=== PATIENT | male | born 1945 | race Caucasian/White ===

== ENCOUNTER 2024-10-03 09:42 | Inpatient (IN) ==
[2024-10-03 10:42] LABS: Hematocrit (blood only) 50.9 % (42.0-52.0); Hemoglobin 17.7 g/dl (14.0-18.0); Immature Granulocytes # (auto) 0.03 K/uL (0.01-0.20); Immature Granulocytes % (auto) 0.4 %; Mean Corpuscular Hemoglobin 31.1 pg (25.0-34.0); Mean Corpuscular Volume 89.3 fL (80.0-100.0); Platelet Count 289 K/uL (130-400); RDW Standard Deviation 42.6 fL (36.4-46.3); Red Blood Count 5.70 M/uL (4.70-6.10); White Blood Count 8.30 K/ul (4.8-10.8)
--- NOTE | 2024-10-03 10:53 | Emergency Department Note ---
Impression & Plan Acute right-sided back pain with sciatica, Fall, Right leg weakness ED Provider Note NAME: KAMRYN SWEET AGE: 78 SEX: Male INFORMANT: Patient ED PROVIDER(S): Marcel Monae MD CHIEF COMPLAINT: Back pain PLAN: Disposition: Admitted Outpatient prescription management: none Referral: None MEDICAL DECISION MAKING: Patient presented because of back pain. He had a minor fall twice this week and thankfully suffered no significant injury with his. He had no saddle anesthesia. Given his prior back surgery history he had blood work obtained and was sent for CT imaging. Patient was found to have disc herniation on CT imaging. This would fit with his right leg weakness and discomfort. He was treated with IV Tylenol. He felt better with this but then had returned recurrence of pain. He was treated with oral tramadol. Discussed the case with on-call spine, Dr. Walton and he felt admission for MRI, consultation and management was appropriate given the patient's age and multiple falls. Discussed this with the patient and he was in agreement. Consultation was made with the hospitalist service. Patient was evaluated in the ER and admitted for further management. Care/management discussed with: specification manager, orthospine, hospitalist Level of care consideration(s): After review of the information above and other included data, I feel the patient requires escalation of care to admission Triage Nursing notes: reviewed and agree them. Vital Signs: reviewed and remarkable for hypertension Additional History obtained from: none Chronic Medical/Social Conditions affecting care: Lives alone Prior/ Outside/ External records reviewed: none Differential Diagnosis: Musculoskeletal, disc herniation, fracture, metastatic disease, cord compression, discitis, sciatica, cauda equina, infection, aortic disease, renal colic, gastrointestinal, as well as other pathologies. Diagnostics, independently interpreted by me: ECG: none Cardiac Monitoring: Cardiac monitoring ordered by me: The patient was placed on continuous cardiac monitoring and observed. It revealed a normal sinus rhythm at 87 beats per minute without ectopy or evidence of dysrhythmia. Medical decision rules: none Imaging studies: CT scan as above. HPI: 78 year old Male arrives for evaluation of a back pain and a fall. This started a few days ago and is worsening. Right leg gave out and he fell. No injury. The patient also notes the following associated symptoms, none. The patient has taken tylenol for relieving factors. Current pain is rated as 8/10. Pt denies LOC, headache, fevers, chills, diaphoresis, visual changes, neck pain, chest pain, breathing difficulties, nausea, vomiting, abdominal pain, melena, hematochezia, urinary symptoms, numbness, lymphadenopathy, rash, or other complaints. PAST MEDICAL HISTORY: See Below, kidney stone PAST SURGICAL HISTORY: See Below, SOCIAL HISTORY: See Below, retired HOME MEDICATIONS: See Below ALLERGIES: See Below VITALS: See Below PHYSICAL EXAMINATION: GENERAL: Awake, alert, uncomfortable-appearing, in no distress HENT: Normocephalic, atraumatic. Oropharynx unremarkable. EYES: Normal conjunctiva. Sclera non-icteric. NECK: Inspection normal. Non-tender. Supple. No nuchal rigidity. FROM. No masses. RESPIRATORY: Clear to auscultation. No wheezes. No rales. Normal respiratory effort. CARDIAC: Normal rate. Normal rhythm. No murmurs. No rubs. Extremities warm and well perfused. Pulses equal. No JVD. GI: Soft, non-distended. No tenderness to palpation. No rebound or guarding. No masses. RECTAL: Deferred. MUSCULOSKELETAL: Atraumatic. Chest examination reveals no tenderness. The back is symmetrical on inspection without obvious abnormality. There is no CVA tenderness to palpation. No joint edema. LOWER EXTREMITIES: Calves are equal size bilaterally and non-tender. No edema. No discoloration. NEURO: Normal sensorium. No sensory or motor deficits noted. No saddle anesthesia. Positive right SLR SKIN: No rash or jaundice noted. PROCEDURES: none CRITICAL CARE: none OBSERVATION NOTE: none Past Med/Surg History Problem List (Updated 10/03/24 @ 10:53 by Marcel Monae MD) Right leg weakness (Acute) Fall (Acute) Acute right-sided back pain with sciatica (Acute) Urethral stricture Hydronephrosis, left Left ureteral calculus Medical History (Updated 10/03/24 @ 10:53 by Marcel Monae MD) Nausea and vomiting after administration of anesthetic agent Macular degeneration gets injections Fusion of spine lumbar Hiatal hernia GERD (gastroesophageal reflux disease) Surgical History History of surgery on arm left Hx of foot surgery left History of tooth extraction History of cataract surgery right History of tonsillectomy Social History Smoking Status: Former smoker Second Hand Exposure: No; Do You Dip or Chew Tobacco: No; Hx Alcohol Use: No Hx Substance Use: No Preferred Language: Turkish Communication Ability: Effective 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 Beliefs That Will Affect Care: None Current Living Situation: Spouse Feels Safe at Home: Yes Assistive Devices: Denture - Upper, Denture - Lower and Glasses Allergies Allergies Allergy/AdvReac Type Severity Reaction Status Date / Time meperidine [From Demerol] Allergy Severe Hallucinati Verified 10/03/24 14:10 ng Home Meds Home Medications Medication Instructions Recorded Confirmed multivitamin 1 tab PO QAM 05/20/23 10/03/24 pantoprazole 40 mg tablet,delayed 40 mg PO QAM 05/20/23 10/03/24 release vit C 250 mg-vit E 90 mg-zinc 40 1 tab PO BID 05/20/23 10/03/24 mg-copper 1 [id number] capsule (PreserVision AREDS-2) Results & Data (ED) Vital Signs Vital Signs - 24 hr 10/03/24 09:51 10/03/24 10:31 10/03/24 10:32 Temperature 36.8 C Temperature Source Skin Pulse Rate 100 H 95 H Pulse Rate [Apical] 89 Pulse Rate from SpO2 Sensor Pulse Rhythm Regular Pulse Strength Normal Respiratory Rate 20 20 Respiratory Effort / Characteristics Non-Labored Spontaneous Non-Labored Respiratory Depth Normal Normal Respiratory Pattern Regular Blood Pressure 159/103 H Blood Pressure [Left Arm] 155/108 H Blood Pressure Mean 121 Blood Pressure Mean [Left Arm] 123 Pulse Oximetry 95 96 Oxygen Delivery Method Room Air Room Air Sepsis Recent Fever Within 48 Hours No Sepsis New/Unexplained Change in Mental Status N/A Sepsis Action Taken by Nursing No Action Required 10/03/24 10:32 10/03/24 11:01 10/03/24 11:06 Temperature Temperature Source Pulse Rate 93 H Pulse Rate [Apical] Pulse Rate from SpO2 Sensor 93 H Pulse Rhythm Pulse Strength Respiratory Rate 17 Respiratory Effort / Characteristics Respiratory Depth Respiratory Pattern Blood Pressure 199/111 H Blood Pressure [Left Arm] Blood Pressure Mean 142 Blood Pressure Mean [Left Arm] Pulse Oximetry 95 93 Oxygen Delivery Method Room Air Sepsis Recent Fever Within 48 Hours Sepsis New/Unexplained Change in Mental Status Sepsis Action Taken by Nursing 10/03/24 11:30 10/03/24 12:30 10/03/24 13:03 Temperature Temperature Source Pulse Rate 90 89 93 H Pulse Rate [Apical] Pulse Rate from SpO2 Sensor 90 90 92 H Pulse Rhythm Pulse Strength Respiratory Rate 21 14 15 Respiratory Effort / Characteristics Respiratory Depth Respiratory Pattern Blood Pressure 180/142 H 164/112 H 171/120 H Blood Pressure [Left Arm] Blood Pressure Mean 154 129 137 Blood Pressure Mean [Left Arm] Pulse Oximetry 94 93 95 Oxygen Delivery Method Sepsis Recent Fever Within 48 Hours Sepsis New/Unexplained Change in Mental Status Sepsis Action Taken by Nursing 10/03/24 13:30 10/03/24 14:00 10/03/24 14:33 Temperature Temperature Source Pulse Rate 88 85 85 Pulse Rate [Apical] Pulse Rate from SpO2 Sensor 87 85 85 Pulse Rhythm Pulse Strength Respiratory Rate 12 15 17 Respiratory Effort / Characteristics Respiratory Depth Respiratory Pattern Blood Pressure 192/107 H 166/95 H 171/108 H Blood Pressure [Left Arm] Blood Pressure Mean 135 118 129 Blood Pressure Mean [Left Arm] Pulse Oximetry 93 94 96 Oxygen Delivery Method Sepsis Recent Fever Within 48 Hours Sepsis New/Unexplained Change in Mental Status Sepsis Action Taken by Nursing 10/03/24 15:29 10/03/24 16:00 10/03/24 16:30 Temperature Temperature Source Pulse Rate 81 83 79 Pulse Rate [Apical] Pulse Rate from SpO2 Sensor 83 Pulse Rhythm Pulse Strength Respiratory Rate 14 14 Respiratory Effort / Characteristics Respiratory Depth Respiratory Pattern Blood Pressure 190/109 H 201/112 H Blood Pressure [Left Arm] Blood Pressure Mean 136 141 Blood Pressure Mean [Left Arm] Pulse Oximetry 95 Oxygen Delivery Method Sepsis Recent Fever Within 48 Hours Sepsis New/Unexplained Change in Mental Status Sepsis Action Taken by Nursing 10/03/24 16:31 10/03/24 16:33 10/03/24 17:30 Temperature Temperature Source Pulse Rate 81 84 Pulse Rate [Apical] Pulse Rate from SpO2 Sensor 81 82 Pulse Rhythm Pulse Strength Respiratory Rate 15 17 Respiratory Effort / Characteristics Respiratory Depth Respiratory Pattern Blood Pressure 189/110 H 182/112 H Blood Pressure [Left Arm] Blood Pressure Mean 135 135 Blood Pressure Mean [Left Arm] Pulse Oximetry 95 94 Oxygen Delivery Method Sepsis Recent Fever Within 48 Hours Sepsis New/Unexplained Change in Mental Status Sepsis Action Taken by Nursing 10/03/24 18:03 Temperature Temperature Source Pulse Rate 87 Pulse Rate [Apical] Pulse Rate from SpO2 Sensor Pulse Rhythm Pulse Strength Respiratory Rate 19 Respiratory Effort / Characteristics Respiratory Depth Respiratory Pattern Blood Pressure 183/121 H Blood Pressure [Left Arm] Blood Pressure Mean 141 Blood Pressure Mean [Left Arm] Pulse Oximetry Oxygen Delivery Method Sepsis Recent Fever Within 48 Hours Sepsis New/Unexplained Change in Mental Status Sepsis Action Taken by Nursing Laboratory Data 10/03/24 10:25 10/03/24 10:25 Lab Results 10/03/24 10/03/24 Range/Units 10: 11:36 WBC 8.30 (4.8-10.8) K/ul RBC 5.70 (4.70-6.10) M/uL Hgb 17.7 (14.0-18.0) g/dl Hct 50.9 (42.0-52.0) % MCV 89.3 (80.0-100.0) fL MCH 31.1 (25.0-34.0) pg MCHC 34.8 (32.0-36.0) g/dL RDW Std Deviation 42.6 (36.4-46.3) fL RDW Coeff of Todd 13.1 (11.5-14.5) % Plt Count 289 (130-400) K/uL MPV 8.6 L (9.4-12.4) fL Immature Gran % (Auto) 0.4 % Neut % (Auto) 81.1 % Lymph % (Auto) 11.1 % [place] % (Auto) 6.4 % Eos % (Auto) 0.2 % Baso % (Auto) 0.8 % Neut # (Auto) 6.73 H (1.40-6.50) K/uL Lymph # (Auto) 0.92 L (1.20-3.40) K/uL [place] # (Auto) 0.53 (0.11-0.59) K/uL Eos # (Auto) 0.02 (0.00-0.50) K/uL Baso # (Auto) 0.07 (0.00-0.20) K/uL Immature Gran # (Auto) 0.03 (0.01-0.20) K/uL Sodium 136 (136-145) mmol/L Potassium 4.1 (3.5-5.1) mmol/L Chloride 104 (98-107) mmol/L Carbon Dioxide 23 (21-32) mmol/L Anion Gap 9 (3-11) BUN 22 (6-23) mg/dl Creatinine 0.90 (0.6-1.4) mg/dl Est Cr Clr Drug Dosing Not Reportable eGFR 86.88 BUN/Creatinine Ratio 24.4 H (10-20) Glucose 109 H (70-99(Fasting)) mg/dl Calcium 9.3 (8.6-10.3) mg/dl Total Bilirubin 0.7 (0.2-1.0) mg/dl AST 17 (13-39) U/L ALT 15 (7-52) U/L Alkaline Phosphatase 68 (34-104) U/L Total Protein 7.3 (6.0-8.3) gm/dl Albumin 4.1 (3.4-5.0) gm/dl Globulin 3.2 (2.5-4.0) gm/dl Albumin/Globulin Ratio 1.3 (0.9-2) Urine Color Yellow Urine Appearance Clear (Clear) Urine pH 5.5 (4.5-7.5) Ur Specific [place] 1.012 (1.000-1.030) Urine Protein Negative (Negative) Urine Glucose (UA) Negative (Negative) Urine Ketones 1+ H (Negative) Urine Blood Negative (Negative) Urine Nitrite Negative (Negative) Urine Bilirubin Negative (Negative) Urine Urobilinogen Negative (Negative) Ur Leukocyte Esterase Trace H (Negative) Urine WBC (Auto) 0-5 (0-5) /hpf Urine RBC (Auto) 0-2 (0-2) /hpf U Hyaline Cast (Auto) 0-2 (0-2) /lpf U Epithel Cells (Auto) 0-2 (0-2) /hpf Urine Bacteria (Auto) None Seen (None Seen) Urine Comment Administered Medications Discontinued Medications Acetaminophen (Ofirmev) 1,000 mg in 100 mls @ 400 mls/hr IV NOW STA Stop: 10/03/24 13:16 Last Infusion: 10/03/24 13:48 Dose: Infused Documented By: Admin: 10/03/24 13:10 Dose: 400 mls/hr Documented By: CEF Tramadol HCl (Tramadol Hcl 50 Mg Tablet) 50 mg PO NOW STA Stop: 10/03/24 17:31 Last Admin: 10/03/24 17:49 Dose: 50 mg Documented By: CEF Imaging Data Radiologist's Impression: Lumbar Spine CT 10/03/24 10:54 CT SCAN OF THE LUMBAR SPINE WITHOUT IV CONTRAST CLINICAL HISTORY: Fall. Low back pain. Right-sided sciatica. COMPARISON STUDY: Abdominal CT dated 04/19/2023. TECHNIQUE: CT scan of the lumbar spine is performed from the lower thoracic spine to the sacrum. Images are reviewed in the axial, sagittal, and coronal planes. IV contrast was not administered for this examination. A dose lowering technique was utilized adhering to the principles of ALARA. CT DOSE: 976.05 mGy.cm FINDINGS: The skeletal structures are osteopenic there there is no evidence of acute fracture or malalignment. A minimal chronic superior endplate compression deformity of L1 is unchanged. Vertebral body height is otherwise maintained throughout the lumbar spine. Alignment is preserved. Postlaminectomy change is seen at the thoracolumbar junction. The transverse and remaining spinous processes appear intact. Anterior and lateral marginal osteophytes are seen throughout. There is no spondylolysis. No lytic or blastic lesion is seen. There is mild to moderate disc space narrowing at L4-L5. Moderate disc space narrowing is seen at T12-L1. Only minimal disc space narrowing is seen at the remaining lumbar levels. Small posterior disc osteophyte complexes are seen all lumbar levels. There is no CT evidence of high-grade central canal stenosis. Lateral disc bulges are seen at L3-L4, L4-L5, and L5-S1. There is an inferiorly extruded disc fragment eccentric to the right at L3-L4. The disc fragment measures up to 12 mm as seen on sagittal image #35 and axial image #192. This impinges on the transiting right-sided nerve roots. Imaged portions of the sacrum and bony pelvis appear intact. A bone graft donor site is noted in the medial left ilium. There is mild fatty atrophy of the paraspinous musculature. The abdominal aorta is normal in caliber noting moderate to advanced atherosclerotic calcification. No retroperitoneal lymphadenopathy is seen. There are at least 4 nonobstructing calculi seen in both kidneys which measure up to 5 mm. IMPRESSION: 1. No acute bony abnormality is seen involving the lumbar spine. 2. There is a large inferiorly extruded disc fragment eccentric to the right at L3-L4 which impinges on the transiting right-sided nerve roots. 3. Bilateral nephrolithiasis. 4. Additional findings as above. ACT 112: Negative or not required by law. Electronically signed by: Luis Alfredo Martinez M.D. 10/03/2024 11:50 AM Discharge Plan Visit Data Chief Complaint: Fall Stated Complaint: FALL, BACK PAIN ED Provider: Marcel Monae Discharge Problem: Acute right-sided back pain with sciatica, Fall, Right leg weakness Patient Disposition: Admitted As Inpatient Condition: Good Forms Stand Alone Forms: [facility] Prescriptions Prescriptions: No Action multivitamin Tablet 1 tab PO QAM pantoprazole 40 mg Tablet,Delayed Release (Dr/Ec) 40 mg PO QAM PreserVision AREDS-2 250-90-40-1 mg Capsule 1 tab PO BID Referrals Referrals: Suellen Escobar CRNP [Primary Care Provider] -
[2024-10-03 11:03] LABS: Alanine Aminotransferase 15 U/L (7-52); Albumin Globulin Ratio 1.3 (0.9-2); Alkaline Phosphatase 68 U/L (34-104); Anion Gap 9 (3-11); Bilirubin,Total 0.7 mg/dl (0.2-1.0); Blood Urea Nitrogen 22 mg/dl (6-23); Calcium 9.3 mg/dl (8.6-10.3); Carbon Dioxide 23 mmol/L (21-32); Chloride 104 mmol/L (98-107); Globulin 3.2 gm/dl (2.5-4.0); Glucose 109 mg/dl (70-99(Fasting)); Potassium 4.1 mmol/L (3.5-5.1); Sodium 136 mmol/L (136-145); Total Protein 7.3 gm/dl (6.0-8.3)
--- NOTE | 2024-10-03 11:52 | CT Scan Report ---
CT SCAN OF THE LUMBAR SPINE WITHOUT IV CONTRAST CLINICAL HISTORY: Fall. Low back pain. Right-sided sciatica. COMPARISON STUDY: Abdominal CT dated 04/19/2023. TECHNIQUE: CT scan of the lumbar spine is performed from the lower thoracic spine to the sacrum. Claire ges are reviewed in the axial, sagittal, and coronal planes. IV contrast was not administered for thi s examination. A dose lowering technique was utilized adhering to the principles of ALARA. CT DOSE: 976.05 mGy.cm FINDINGS: The skeletal structures are osteopenic there there is no evidence of acute fracture or ary lignment. A minimal chronic superior endplate compression deformity of L1 is unchanged. Vertebral bod y height is otherwise maintained throughout the lumbar spine. Alignment is preserved. Postlaminectomy change is seen at the thoracolumbar junction. The transverse and remaining spinous processes appear intact. Anterior and lateral marginal osteophytes are seen throughout. There is no spondylolysis. No lytic or blastic lesion is seen. There is mild to moderate disc space narrowing at L4-L5. Moderate di sc space narrowing is seen at T12-L1. Only minimal disc space narrowing is seen at the remaining lumb ar levels. Small posterior disc osteophyte complexes are seen all lumbar levels. There is no CT evide nce of high-grade central canal stenosis. Lateral disc bulges are seen at L3-L4, L4-L5, and L5-S1. Th ere is an inferiorly extruded disc fragment eccentric to the right at L3-L4. The disc fragment measur es up to 12 mm as seen on sagittal image #35 and axial image #192. This impinges on the transiting ri ght-sided nerve roots. Imaged portions of the sacrum and bony pelvis appear intact. A bone graft dono r site is noted in the medial left ilium. There is mild fatty atrophy of the paraspinous musculature. The abdominal aorta is normal in caliber noting moderate to advanced atherosclerotic calcification. No retroperitoneal lymphadenopathy is seen. There are at least 4 nonobstructing calculi seen in both kidneys which measure up to 5 mm. IMPRESSION: 1. No acute bony abnormality is seen involving the lumbar spine. 2. There is a large inferiorly extruded disc fragment eccentric to the right at L3-L4 which impinges on the transiting right-sided nerve roots. 3. Bilateral nephrolithiasis. 4. Additional findings as above. ACT 112: Negative or not required by law. Electronically signed by: Luis Alfredo Martinez M.D. 10/03/2024 11:50 AM
[2024-10-03 12:14] LABS: Appearance Urine Clear (Clear); Bacteria Urine Automated None Seen (None Seen); Cast Urine Automated 0-2 /lpf (0-2); Epithelial Cell Urine Auto 0-2 /hpf (0-2); Glucose Urine UA Negative (Negative); RBC Urine Automated 0-2 /hpf (0-2); WBC Urine Automated 0-5 /hpf (0-5)
[2024-10-03] MEDS: ACETAMINOPHEN 1,000 MG/100 ML VIAL IV STA (13:10)
--- NOTE | 2024-10-03 16:41 | History & Physical Report ---
Date of Service October 03, 2024 Assessment & Plan (1) Right leg weakness: (2) Fall: (3) Acute right-sided back pain with sciatica: Plan #Falls #Right leg weakness #Right sided sciatica - admit to inpt (tele due to hypertension) - CT lumbar spine shows large inferiorly extruded disc fragment eccentric to the right at L3-L4 which impinges on the transiting right-sided nerve roots. - orthopedic consulted - MRI ordered - pain control with gabapentin and prn Tylenol and prn Tramadol - PT / OT consulted - fall precautions #HTN - pt states that his SBP runs 130-140 - suspect acute elevation due to pain - prn labetalol also ordered #BPH - started on flomax #DVT ppx: SCDs, but if staying more than 24 hrs, will initiate lovenox subq Code status: Full code, he did say that he does not want to be prolonged with artificial support History of Present Illness Chief Complaint: Two falls Primary Care Provider: KAROL Mauricio 78 yo M with PMH of GERD, BPH. He presents today after sustaining two falls today. He stated that he felt aching pain down his right leg and his leg would give out. This happened back to back. He denied palpitations, dizziness prior to episode. He denied loss of consciousness or head trauma. He denied bowel / bladder incontinence. He denied any numbness / tingling in the groin. He continues to have aching pain in the right leg. Allergies Allergy/AdvReac Type Severity Reaction Status Date / Time meperidine [From Demerol] Allergy Severe Hallucinati Verified 10/03/24 14:10 ng Home Medications Medication Instructions Recorded Confirmed Type multivitamin 1 tab PO QAM 05/20/23 10/03/24 History pantoprazole 40 mg tablet,delayed 40 mg PO QAM 05/20/23 10/03/24 History release vit C 250 mg-vit E 90 mg-zinc 40 1 tab PO BID 05/20/23 10/03/24 History mg-copper 1 [id number]-[id number]-uffaed capsule (PreserVision AREDS-2) Past Med/Surg History Problem List (Updated 10/03/24 @ 10:53 by Marcel Monae MD) Right leg weakness (Acute) Fall (Acute) Acute right-sided back pain with sciatica (Acute) Urethral stricture Hydronephrosis, left Left ureteral calculus Medical History (Updated 10/03/24 @ 10:53 by Marcel Monae MD) Nausea and vomiting after administration of anesthetic agent Macular degeneration gets injections Fusion of spine lumbar Hiatal hernia GERD (gastroesophageal reflux disease) Surgical History History of surgery on arm left Hx of foot surgery left History of tooth extraction History of cataract surgery right History of tonsillectomy Social History Smoking Status: Former smoker Second Hand Exposure: No; Do You Dip or Chew Tobacco: No; Hx Alcohol Use: No Hx Substance Use: No Preferred Language: Dutch Communication Ability: Effective 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 Physical Exam Physical Exam: Gen: no acute distress, lying in bed comfortable HEENT: NC/AT, MMM Lungs: nonlabored breathing, CTAB CVS: s1s2nl, RRR Abd: nl bowel sounds, soft, NT / ND : no dick Ext: no edema Neuro: AAOx3, good strength b/l LEs Psych: calm cooperative Results & Data Results & Data Vital Signs (Past 12 Hours) Vital Signs Temp Pulse Pulse Resp BP BP Pulse Ox 10/03/24 15:29 81 10/03/24 14:33 85 17 171/108 H 96 10/03/24 14:00 85 15 166/95 H 94 10/03/24 13:30 88 12 192/107 H 93 10/03/24 13:03 93 H 15 171/120 H 95 10/03/24 12:30 89 14 164/112 H 93 10/03/24 11:30 90 21 180/142 H 94 10/03/24 11:06 93 H 17 93 10/03/24 11:01 199/111 H 10/03/24 10:32 95 10/03/24 10:32 89 20 155/108 H 96 10/03/24 10:31 95 H 10/03/24 09:51 36.8 C 100 H 20 159/103 H 95 O2 Del Method 10/03/24 15:29 10/03/24 14:33 10/03/24 14:00 10/03/24 13:30 10/03/24 13:03 10/03/24 12:30 10/03/24 11:30 10/03/24 11:06 10/03/24 11:01 10/03/24 10:32 Room Air 10/03/24 10:32 Room Air 10/03/24 10:31 10/03/24 09:51 Room Air PG Care Time/CCT Total # of Minutes Spent Total Time Spent with Patient: Total time spent is greater than 50% in coordination of care (as documented) at patient's floor/unit and/or counseling patient: Coding Level of Care Code 07279 INT INP/OBS CARE 3/75MIN Diagnoses Right leg weakness R29.898 Fall W19.XXXA Acute right-sided back pain with sciatica M54.41
[2024-10-03] MEDS ORDERED: LABETALOL HCL IV 5 MG/ML 20ML IV PRN (18:49)
--- NOTE | 2024-10-03 18:59 | Magnetic Resonance Report ---
Lumbar spine MRI without IV contrast History: Back pain Comparison: None Technique: Sagittal T1-weighted, sagittal STIR, 3D volumetric axial and sagittal reconstructed T2-weighted images of the lumbar spine were obtained without intravenous contrast. Findings: There are 5 lumbar-type vertebrae assumed for the purposes of this dictation. The tip of the conus medullaris is at L1-L2. Trace retrolisthesis of L3 on L4 and L4 on L5. Diffuse loss and T2 signal throughout the discs. Moderate disc height loss at L4-5. Mild disc height loss throughout the remainder of the lumbar spine. Normal marrow signal. On a level by level basis: T12-L1: No spinal canal or neuroforaminal stenosis. L1-2: No spinal canal or neuroforaminal stenosis. L2-3: No spinal canal or neuroforaminal stenosis. L3-4: Degenerative facet changes. Small disc bulge. The disc bulge contacts the exiting right-sided nerve root in the extraforaminal zone. On the right, within the spinal canal, is a rounded, 6 mm focus of extruded and inferiorly migrated disc material, coming into contact with the descending L5 nerve root. L4-5: Degenerative facet changes. Small disc bulge. Ligamentum flavum thickening. Severe left and moderate right neuroforaminal stenosis. L5-S1: Degenerative facet changes. Small disc bulge. Severe left and moderate right neuroforaminal stenosis. Paraspinous tissues are within normal limits. Note: The following findings are common in the absence of low back pain and while we report their presence, they must be interpreted with caution and in the context of the clinical situation. (Reference -Jarvik et al, Spine 2001) Findings (prevalence in patients without low back pain) Disc degeneration (decreased T2 signal, height loss, bulge) (91%) Disc T2 - signal loss (83%) Disc height loss (56%) Disc bulge (64%) Disc protrusion (32%) Annular tear (38%). Impression: Degenerative changes of the lumbar spine, most pronounced at L3-4, L4-5, and L5-S1. A small extruded focus of disc material with inferior migration within the right side of the spinal canal is seen at L3-4, contacting the descending L5 nerve root. L4-5 and L5-S1 neuroforaminal stenoses are severe on the left and moderate on the right. Electronically signed by Paulie Fagan 10-03-2024 6:58 PM
[2024-10-03] MEDS: GABAPENTIN 100 MG CAP PO SCH (20:34)
[2024-10-04 06:33] LABS: Hematocrit (blood only) 49.0 % (42.0-52.0); Hemoglobin 16.6 g/dl (14.0-18.0); Mean Corpuscular Hemoglobin 30.9 pg (25.0-34.0); Mean Corpuscular Volume 91.1 fL (80.0-100.0); Platelet Count 278 K/uL (130-400); RDW Standard Deviation 44.3 fL (36.4-46.3); Red Blood Count 5.38 M/uL (4.70-6.10); White Blood Count 8.65 K/ul (4.8-10.8)
[2024-10-04 07:06] LABS: Anion Gap 8.0 (3-11); Blood Urea Nitrogen 25.0 mg/dl (6-23); Calcium 8.7 mg/dl (8.6-10.3); Carbon Dioxide 25.0 mmol/L (21-32); Chloride 104.0 mmol/L (98-107); Creatinine Clr Calc Pharmacy 63.5 ml/min; Glucose 89.0 mg/dl (70-99(Fasting)); Magnesium 2.1 mg/dl (1.7-2.4); Potassium 3.7 mmol/L (3.5-5.1); Sodium 137.0 mmol/L (136-145)
[2024-10-04] MEDS: MULTIVITAMIN TAB PO SCH (08:46)
[2024-10-04] MEDS: TAMSULOSIN HCL 0.4 MG CAP PO SCH (08:47)
--- NOTE | 2024-10-04 11:08 | Orthopedic Consultation ---
Date of Service October 04, 2024 Assessment & Plan (1) Herniation of lumbar intervertebral disc with radiculopathy: (2) Lumbar spondylosis: (3) Lumbar stenosis without neurogenic claudication: Plan Patient has evidence of right-sided lumbar disc herniation with compression of the nerve roots both in the foramen as well as traversing of the lateral recess. Given that this has recently started would like to maximize nonoperative treatment prior to proceeding with surgery. Given the foraminal stenosis concern for how much bone I would need to remove to adequately decompress the nerves. He may benefit from evaluation by pain management for epidural injections or continued conservative care with anti-inflammatory medicines as well as physical therapy. Explained that most disc herniations will resolve with time however he is adamant that he would like to just proceed with surgery. I did discussion with the patient's granddaughter who is also a physician in neurosurgery. After discussion of the risks and benefits of surgery patient would like to proceed with L3-4 right-sided discectomy given his ambulatory dysfunction and lack of pain improvement. We discussed surgical intervention at length, and the patient was informed that risks include but are not limited to: bleeding, infection, blood clots to extremities or lungs, no relief or incomplete relief of symptoms, dural tear, nerve injury, paralysis, weakness, pain, prolonged recovery, need for physical therapy or rehabilitation services, loss of bowel/bladder control, recurrent stenosis or disc herniation, need for more surgery, and in very rare instances even . We also discussed the fact that this surgery is better for relief of the nerve pain in the lower extremities than back pain. The patient voiced understanding of the risks and benefits of surgery and elected to proceed. History of Present Illness Reason for Consultation: Right leg radiculopathy Attending Physician: Cristal Quiroga MD Patient is a pleasant 78-year-old gentleman with remote history of thoracolumbar spine surgery many years ago in [place]. He presented to the emergency department yesterday, he reported low back pain radiating into the right leg consistent with lumbar radiculopathy. He had several falls at home so he was admitted for pain control and ambulatory dysfunction. Does not report any fixed neurologic deficits, no change in bowel or bladder control.Does not report any improvement in symptoms despite pain medication and gabapentin, difficulty ambulating due to the severity of the pain. Allergies Allergy/AdvReac Type Severity Reaction Status Date / Time meperidine [From Demerol] Allergy Severe Hallucinati Verified 10/03/24 14:10 ng Home Medications Medication Instructions Recorded Confirmed Type multivitamin 1 tab PO QAM 05/20/23 10/03/24 History pantoprazole 40 mg tablet,delayed 40 mg PO QAM 05/20/23 10/03/24 History release vit C 250 mg-vit E 90 mg-zinc 40 1 tab PO BID 05/20/23 10/03/24 History mg-copper 1 qm-dbyoys-xxwaod capsule (PreserVision AREDS-2) Past Med/Surg History Problem List (Updated 10/04/24 @ 11:07 by Luis Alfredo Walton MD) Lumbar stenosis without neurogenic claudication Lumbar spondylosis Herniation of lumbar intervertebral disc with radiculopathy Right leg weakness (Acute) Fall (Acute) Acute right-sided back pain with sciatica (Acute) Urethral stricture Hydronephrosis, left Left ureteral calculus Medical History (Updated 10/04/24 @ 11:07 by Luis Alfredo Walton MD) Nausea and vomiting after administration of anesthetic agent Macular degeneration gets injections Fusion of spine lumbar Hiatal hernia GERD (gastroesophageal reflux disease) Surgical History History of surgery on arm left Hx of foot surgery left History of tooth extraction History of cataract surgery right History of tonsillectomy Social History Smoking Status: Former smoker Second Hand Exposure: No; Do You Dip or Chew Tobacco: No; Tobacco Cessation Education Requested by Patient: No Hx Alcohol Use: No Hx Substance Use: No Preferred Language: Tunisian Communication Ability: Effective Logistics/Shipper Required: No Beliefs That Will Affect Care: None Current Living Situation: Alone Other Information That Helps Us Care for You: No Feels Safe at Home: Yes Safety Concerns: Feels Safe At This Time Assistive Devices: Denture - Upper, Denture - Lower and Glasses Review of Systems All systems reviewed & are unremarkable except as noted in HPI & below. Physical Exam Constitutional: Well developed, appears stated age Psych: patient is coherent and answers questions appropriately, normal affect Eye: Normal gaze, no redness to sclera, pupils round and equal Pulm: Normal respiratory effort, no wheezing Cardiovascular: no significant peripheral edema, palpable DP/PT pulses Skin shows no rashes, lesions No midline or paraspinal tenderness with palpation over the lumbar spine, no stepoffs Motor strength is 5/5 in bilateral hip flexors, quadriceps, tibialis anterior, extensor hallucis longus, and gastroc/soleus complex Sensation intact to light touch in the L2-S1 dermatomes bilaterally 2+ reflexes at the achilles and patella tendons bilaterally No ankle clonus Results & Data Results & Data Laboratory Results . Diagnostic Findings CT scan of the lumbar spine is available for review today and interpreted personally. Multiple levels of disc degeneration and evidence of prior fractures in the upper lumbar spine which are well-healed. Concern for disc bulging/herniation at the L3-4 level. No signs of acute fracture, multiple levels of considerable facet arthropathy. Moderate disc degeneration L3-4 L4-5 L5-S1. MRI of the lumbar spine is available for review today and interpreted personally. Again noted are prior evidence of fractures which appear well- healed. No significant stenosis at L1-2 or L2-3. The L3-4 level there is a right sided disc herniation approximately 6 mm in length on sagittal which creates lateral recess stenosis at the L3-4 level, bulging into the foramen creates moderate to severe foraminal stenosis at that level with contact of the exiting right L3 nerve. L4-5 shows disc degeneration, severe left-sided foraminal stenosis, moderate right-sided foraminal stenosis. L5-S1 shows again severe left-sided foraminal stenosis, mild to moderate right-sided foraminal stenosis. PG Care Time/CCT Total # of Minutes Spent Total Time Spent with Patient: Total time spent is greater than 50% in coordination of care (as documented) at patient's floor/unit and/or counseling patient: Coding Level of Care Code 90673 IN/OBS CONSULT LVL 5,80M Diagnoses Herniation of lumbar intervertebral disc with radiculopathy M51.16 Lumbar spondylosis M47.816 Lumbar stenosis without neurogenic claudication M48.061
--- NOTE | 2024-10-04 19:19 | Hospitalist Progress Note ---
Date of Service October 04, 2024 Assessment & Plan (1) Right leg weakness: (2) Fall: (3) Acute right-sided back pain with sciatica: Plan #Falls #Right leg weakness #Right sided sciatica - admit to inpt (tele due to hypertension) - CT lumbar spine shows large inferiorly extruded disc fragment eccentric to the right at L3-L4 which impinges on the transiting right-sided nerve roots. - orthopedic consulted - MRI reviewed - pain control with gabapentin and prn Tylenol and prn Tramadol - PT / OT consulted - fall precautions #HTN - pt states that his SBP runs 130-140 - suspect acute elevation due to pain - prn labetalol also ordered #BPH - started on flomax #DVT ppx: SCDs, hold off on initiating lovenox since pt is going for surgery tomorrow, will clear with ortho prior to starting post surgery Code status: Full code, he did say that he does not want to be prolonged with artificial support Admission and Anticipated Discharge Date Admission Date: October 03, 2024 Subjective No acute events overnight Currently no new complaints He states that when he walks his right leg is still shaky thus he made the decision to pursue surgery Review of Systems Review of Systems: Comprehensive ROS completed and is otherwise negative. Physical Exam Physical Exam: Gen: no acute distress, lying in bed comfortable HEENT: NC/AT, MMM Lungs: nonlabored breathing, CTAB CVS: s1s2nl, RRR Abd: nl bowel sounds, soft, NT / ND : no dick Ext: no edema Neuro: AAOx3, good strength b/l LEs Psych: calm cooperative Results & Data Results & Data Vital Signs (Past 12 Hours) Vital Signs Temp Pulse Pulse Resp BP Pulse Ox O2 Del Method 10/04/24 15:56 36.4 C L 91 H 18 112/79 95 Room Air 10/04/24 15:55 94 H 10/04/24 08:06 36.3 C L 69 18 140/73 95 Room Air 10/04/24 07:21 59 L PG Care Time/CCT Total # of Minutes Spent Total Time Spent with Patient: Total time spent is greater than 50% in coordination of care (as documented) at patient's floor/unit and/or counseling patient: Coding Level of Care Code 88446 SUB INP/OBS CARE 2/35MIN Diagnoses Right leg weakness R29.898 Fall W19.XXXA Acute right-sided back pain with sciatica M54.41
[2024-10-05 06:33] LABS: Hematocrit (blood only) 50.2 % (42.0-52.0); Hemoglobin 17.8 g/dl (14.0-18.0); Mean Corpuscular Hemoglobin 32.1 pg (25.0-34.0); Mean Corpuscular Volume 90.5 fL (80.0-100.0); Platelet Count 282 K/uL (130-400); RDW Standard Deviation 42.8 fL (36.4-46.3); Red Blood Count 5.55 M/uL (4.70-6.10); White Blood Count 8.14 K/ul (4.8-10.8)
[2024-10-05 07:14] LABS: Anion Gap 9.0 (3-11); Blood Urea Nitrogen 31.0 mg/dl (6-23); Calcium 9.1 mg/dl (8.6-10.3); Carbon Dioxide 24.0 mmol/L (21-32); Chloride 105.0 mmol/L (98-107); Creatinine Clr Calc Pharmacy 53.4 ml/min; Glucose 98.0 mg/dl (70-99(Fasting)); Magnesium 2.1 mg/dl (1.7-2.4); Potassium 3.9 mmol/L (3.5-5.1); Sodium 138.0 mmol/L (136-145)
[2024-10-05] MEDS ORDERED: DEXAMETHASONE SOD INJ 4 MG/ML VIAL ONE (08:56)
[2024-10-05] MEDS ORDERED: ROCURONIUM BROMIDE 10 MG/ML 5 ML VIAL IV ONE (08:56)
[2024-10-05] MEDS ORDERED: ONDANSETRON INJ 2 MG/ML 2 ML VIAL ONE (08:56)
[2024-10-05] MEDS ORDERED: PROPOFOL IV EMULSION 10 MG/ML 20 ML VIAL IV ONE ×2 (08:56→12:52)
[2024-10-05] MEDS ORDERED: SUGAMMADEX SODIUM 200 MG/2 ML VIAL IV ONE (08:57)
[2024-10-05] MEDS ORDERED: MIDAZOLAM HCL 1 MG/ML 2ML VIAL ONE (08:57)
--- NOTE | 2024-10-05 09:49 | Orthopedic Progress Note ---
Date of Service October 05, 2024 Assessment & Plan (1) Lumbar stenosis without neurogenic claudication: (2) Lumbar spondylosis: (3) Herniation of lumbar intervertebral disc with radiculopathy: Plan 78-year-old male with no worsening neurologic function given his L3-4 disc herniation with neurologic compression. Given lack of improvement and worsening of his ambulatory abilities he will go to the operating room today for L3-4 discectomy for decompression of the nerve roots to prevent further neurologic decline. Given the worsening neurologic exam this case will be done emergently today to avoid any worsening neurologic function. Subjective Patient is a 78-year-old gentleman admitted for ambulatory dysfunction, right lower extremity weakness and uncontrolled pain. He has not relief despite pain medication, attempted physical therapy and gabapentin. At this point he is not even able to walk around the room, concern for worsening function. Review of Systems All systems reviewed & are unremarkable except as noted in HPI & below. Physical Exam Constitutional: Well developed, appears stated age Psych: patient is coherent and answers questions appropriately, normal affect Eye: Normal gaze, no redness to sclera, pupils round and equal Pulm: Normal respiratory effort, no wheezing Cardiovascular: no significant peripheral edema, palpable DP/PT pulses Skin shows no rashes, lesions No midline or paraspinal tenderness with palpation over the lumbar spine, no stepoffs Motor strength is 5/5 in bilateral hip flexors, quadriceps, tibialis anterior, extensor hallucis longus, and gastroc/soleus complex with the exception of 3 out of 5 strength right quadriceps and tibialis anterior Sensation intact to light touch in the L2-S1 dermatomes bilaterally Results & Data Results & Data Laboratory Results . Diagnostic Findings . PG Care Time/CCT Total # of Minutes Spent Total Time Spent with Patient: Total time spent is greater than 50% in coordination of care (as documented) at patient's floor/unit and/or counseling patient: Coding Level of Care Code 36331 SUB INP/OBS CARE 3/50MIN Diagnoses Lumbar stenosis without neurogenic claudication M48.061 Lumbar spondylosis M47.816 Herniation of lumbar intervertebral disc with radiculopathy M51.16
--- NOTE | 2024-10-05 09:55 | Anesthesiology Consultation ---
Date of Service October 05, 2024 Assessment & Plan Chart Review Chart Review: Acceptable Risk for Surgery and Patient NOT seen in Pre Admission Testing Consults Requested none ASA ASA2 Proposed Anesthesia Anesthesia Type: General Risk / Benefits Reviewed With: PT / POA / Parent / Guardian, Accepts Plan and Informed Consent Obtained Additional Comments: severe ponv that lasted 3 days after prior anesthetic 2 years ago. will give 40 mg po emend History Surgery Operation Date: 10/05/24 08:20 Proposed Procedures p Right L3-L4 Discectomy - Luis Alfredo Walton MD Height/Weight Height: 5 ft 3 in Weight: 83.1 kg Allergies Allergy/AdvReac Type Severity Reaction Status Date / Time meperidine [From Demerol] Allergy Severe Hallucinati Verified 10/05/24 09:54 ng Medications Home Medications Medication Instructions Recorded Confirmed Last Taken multivitamin 1 tab PO QAM 05/20/23 10/03/24 10/02/24 pantoprazole 40 mg tablet,delayed 40 mg PO QAM 05/20/23 10/03/24 10/02/24 release vit C 250 mg-vit E 90 mg-zinc 40 1 tab PO BID 05/20/23 10/03/24 10/02/24 mg-copper 1 su-xkateb-fagdly capsule (PreserVision AREDS-2) Active Medications Generic Name Dose Route Start Last Admin Trade Name Mohit PRN Reason Stop Dose Admin Gabapentin 100 mg 10/03/24 21:00 10/04/24 19:11 Gabapentin 100 Mg Cap PO 11/02/24 20:59 100 mg HS ELIZA Administration Lactated Ringer's 1,000 mls @ 15 mls/hr 10/05/24 10:15 10/05/24 10:03 Lr IV 10/08/24 10:14 15 mls/hr .Q24H ELIZA Administration Multivitamins 1 tab 10/04/24 09:00 10/05/24 08:41 Multivitamin Tab PO 11/03/24 08:59 1 tab BID ELIZA Administration Pantoprazole Sodium 40 mg 10/04/24 09:00 10/05/24 08:41 Pantoprazole 40 Mg Tab PO 11/03/24 08:59 40 mg QAM ELIZA Administration Tamsulosin HCl 0.4 mg 10/04/24 09:00 10/05/24 08:41 Tamsulosin Hcl 0.4 Mg Cap PO 11/03/24 08:59 0.4 mg QAM ELIZA Administration Tramadol HCl 50 mg 10/03/24 21:57 10/05/24 08:41 Tramadol Hcl 50 Mg Tablet PO 11/02/24 21:56 50 mg Q4H PRN Administration moderate to severe pain Past Medical History Medical History Nausea and vomiting after administration of anesthetic agent Macular degeneration gets injections Fusion of spine lumbar Hiatal hernia GERD (gastroesophageal reflux disease) Exercise / Class Metabolic Activity III < 4 Walking/Shop/Light housework Past Surgical History Surgical History History of surgery on arm left Hx of foot surgery left History of tooth extraction History of cataract surgery right History of tonsillectomy Past Anesthesia History No Hx of Anesthesia Complications and No Family Hx of Anesthesia Complications History of PONV No Hx of PONV and No Hx of Motion Sickness Social History Smoking Status: Former smoker Do You Dip or Chew Tobacco: No Hx Alcohol Use: No Hx Substance Use: No substance use type: does not use Review of Systems ROS Unobtainable: All systems reviewed & are unremarkable except as noted in HPI & below Eyes: see below Physical Exam Vital Signs Last Vital Signs Temp 36.5 C 10/05/24 08:27 Pulse 75 10/05/24 08:27 Resp 16 10/05/24 08:27 BP 123/72 10/05/24 08:27 Pulse Ox 95 10/05/24 08:27 O2 Del Method Room Air 10/05/24 08:27 ENMT Mouth: no TMJ abnormality Thyromental Distance: > or= 3.5 Finger Breadths Mallampati Class: II Neck normal visual inspection and trachea midline; neck extension not limited Respiratory normal respiratory effort Auscultation: lungs clear to auscultation bilaterally Cardiovascular Rate/Rhythm: regular rate and regular rhythm Heart Sounds: no murmur Musculoskeletal Spine: normal cervical ROM Extremities: full ROM of extremities Neurologic moves all extremities Psychiatric Orientation: alert and oriented x 3 Testing Laboratory Results 10/05/24 05:38 10/05/24 05:38 Urine Color Yellow 10/03/24 11:36 Urine Appearance Clear (Clear) 10/03/24 11:36 Urine pH 5.5 (4.5-7.5) 10/03/24 11:36 Ur Specific [place] 1.012 (1.000-1.030) 10/03/24 11:36 Urine Protein Negative (Negative) 10/03/24 11:36 Urine Glucose (UA) Negative (Negative) 10/03/24 11:36 Urine Ketones 1+ (Negative) H 10/03/24 11:36 Urine Nitrite Negative (Negative) 10/03/24 11:36 Ur Leukocyte Esterase Trace (Negative) H 10/03/24 11:36 Urine WBC (Auto) 0-5 /hpf (0-5) 10/03/24 11:36 Urine RBC (Auto) 0-2 /hpf (0-2) 10/03/24 11:36 U Hyaline Cast (Auto) 0-2 /lpf (0-2) 10/03/24 11:36 U Epithel Cells (Auto) 0-2 /hpf (0-2) 10/03/24 11:36 Urine Bacteria (Auto) None Seen (None Seen) 10/03/24 11:36 Electrocardiogram Date: 06/05/23 Findings: + SB @ (58) Sinus bradycardia with 1st degree A-V block Otherwise normal ECG No previous ECGs available Confirmed by Eduard Craft ([id number]) on 05/16/2023 7:39:40 AM
[2024-10-05] MEDS ORDERED: ONDANSETRON INJ 2 MG/ML 2 ML VIAL IV PRN (10:00)
[2024-10-05] MEDS ORDERED: ATROPINE SULFATE 0.1 MG/ML 10ML SYR IV PRN (10:00)
[2024-10-05] MEDS ORDERED: HYDROmorphone INJ 1 MG/ML SYRINGE IV PRN (10:00)
[2024-10-05] MEDS: LACTATED RINGER'S 1,000 ML IV SCH ×2 (10:03→15:26)
[2024-10-05] MEDS ORDERED: DROPERIDOL 5 MG/2 ML VIAL ONE (10:06)
[2024-10-05] MEDS: APREPITANT 40 MG CAP PO ONE (10:24)
[2024-10-05] MEDS ORDERED: PHENYLEPHRINE 100MCG/ML 5ML SYR ONE (11:18)
[2024-10-05] MEDS ORDERED: PHENYLEPHRINE HCL 10 MG/ML VIAL ONE (11:19)
[2024-10-05] MEDS ORDERED: ePHEDrine sulfate 50 MG/5 ML SYR ONE (11:41)
[2024-10-05] MEDS: GELATIN SPONGE SZ 100 ONE (12:42)
[2024-10-05] MEDS: FLOSEAL HEMOSTATIC MATRIX 10ML TOP ONE (12:43)
[2024-10-05] MEDS ORDERED: PROPOFOL IV EMULSION 10 MG/ML 100 ML VIAL IV ONE (12:47)
[2024-10-05] MEDS: VANCOMYCIN HCL 1000MG/20ML VIAL ONE (12:52)
[2024-10-05] MEDS: BUPIVACAINE 0.5 % 5 MG/1 ML MPF 30ML VIAL ONE (12:52)
--- NOTE | 2024-10-05 12:59 | Post Operative Brief Note ---
PG Immediate Post Op with CF Date of Surgery October 05, 2024 Pre & Post Diagnosis Operation Date: 10/05/24 08:20 Pre-Op Diagnosis: Lumbar stenosis without neurogenic claudication, lumbar spondylosis, herniation of lumbar intervertebral disc with radiculopathy Post-Op Diagnosis: Lumbar stenosis without neurogenic claudication, lumbar spondylosis, herniation of lumbar intervertebral disc with radiculopathy I identified the patient and participated in the time-out.: Yes Procedure Operation Date: 10/05/24 08:20 Actual Procedures p Right L3-L4 Discectomy(Right) - Luis Alfredo Walton MD Surgeon Luis Alfredo Walton MD Ict Help Desk Officer Yoandy Escobar Estimated Blood Loss 20 Findings Consistent with Post-Op Diagnosis Specimens Specimen Description: None per surgeon
--- NOTE | 2024-10-05 13:27 | Fluoroscopy Report ---
FL lumbar spine 2-3V CLINICAL HISTORY: L3-L4 COMPARISON STUDY: Lumbar spine MRI and CT October 03, 2024. Fluoroscopy time: 7 seconds. Number of fluoroscopic images: 1 Ka,r: 3.87 mGy. FINDINGS: Fluoroscopy was provided during L3-L4 discectomy. Surgical retractors are noted. Surgical i nstrument is directed over the canal at the L3-L4 level. IMPRESSION: Fluoroscopy provided during L3-L4 discectomy. ACT 112: Negative or not required by law. Electronically signed by: Emeka Hansen M.D. 10/05/2024 1:25 PM
--- NOTE | 2024-10-05 13:31 | Operative Report ---
PG Post Operative Report Pre & Post Diagnosis Operation Date: 10/05/24 08:20 Pre-Op Diagnosis: Lumbar stenosis without neurogenic claudication, lumbar spondylosis, herniation of lumbar intervertebral disc with radiculopathy Post-Op Diagnosis: Lumbar stenosis without neurogenic claudication, lumbar spondylosis, herniation of lumbar intervertebral disc with radiculopathy I identified the patient and participated in the time-out.: Yes Procedure Operation Date: 10/05/24 08:20 Actual Procedures p Right L3-L4 Discectomy(Right) - Luis Alfredo Walton MD Surgeon Luis Alfredo Walton MD Professor Of Voice Yoandy Escobar Estimated Blood Loss 20 Findings Consistent with Post-Op Diagnosis Specimens None Drains None Anesthesia Type General Complications none Disposition Disposition: Recovery Room Indications Patient was mated to the hospital and had progressive weakness of the right lower extremity, unable to stand due to severe pain. He had weakness in the right quadriceps and tibialis anterior so elected to proceed with surgical intervention, we did discuss that I risks and benefits of surgery which are documented in his hospital notes. I also discussed alternative treatments however he wished to proceed with surgery given advancing weakness I felt this was reasonable. Description of Procedure Patient was brought to the operating room where general anesthesia was induced. He was placed in a prone position on a Solomon spine table with Jordan frame. All bony prominences were padded, SCDs placed for DVT prophylaxis. Verbal timeout was performed after prepping and draping. All were in agreement and elected to proceed. Preoperative fluoroscopy was used to approximate a skin incision over the L3-4 disc space. Subperiosteal dissection was carried out along the L3-4 lamina on the right to expose the interspace. High-speed bur was used to create a laminotomy and the L3 lamina. There was considerable hypertrophy of the facet joints which was also contributing to stenosis. Ligamentum flavum was transected and removed with a Kerrison punch. The right L3-4 facet joint was tightly adherent to the traversing L4 nerve root as it was displaced posteriorly by the disc herniation. The L4 nerve root was mobilized and the disc fragment was identified and moved with micropituitary rongeur's. The dura was quite compressed and appeared a bit thin, I asked anesthesia to perform a Valsalva maneuver and there was no obvious CSF extravasation. Given the fragile appearance of the dura I did place a DuraGen patch with DuraSeal adhesive to reinforce the dura. Traversing L4 nerve root appeared well compressed, no obvious sign of dural leak given thorough exploration and Valsalva maneuver. Hemostasis was obtained with Floseal and bipolar electrocautery. Wound was closed in layers with strata fix in the fascia, Vicryl sutures subcutaneous and david in the skin. Will see how he feels when waking up, if any sign of headache will keep him flat overnight however I did not see a definitive dural tear or CSF extravasation at the end of the case. I attest to the content of the Intraoperative Record and any orders documented therein. Any exceptions are noted below.
[2024-10-05] MEDS ORDERED: NALOXONE HCL 0.4 MG/1 ML VIAL/CARP IV PRN (13:58)
[2024-10-05] MEDS ORDERED: METOCLOPRAMIDE HCL INJ 5 MG/ML 2 ML VIAL IV PRN (13:58)
[2024-10-05] MEDS ORDERED: ONDANSETRON 4 MG OD TAB PO PRN (13:58)
[2024-10-05] MEDS ORDERED: PROMETHAZINE 12.5 MG/50.5 ML BAG IV PRN (13:58)
[2024-10-05] MEDS ORDERED: MAGNESIUM HYDROXIDE SUSP 30 ML UDC PO PRN (13:58)
[2024-10-05] MEDS ORDERED: SOD PHOSPHATE/SOD BIPHOSPHATE ENEMA 132 ML BTL PR PRN (13:58)
--- NOTE | 2024-10-05 14:19 | Anesthesiology Progress Note ---
Date of Service October 05, 2024 Anesthesia Post Procedure Vital Signs Vital Signs: Temp Pulse Pulse Pulse Resp BP Pulse Ox 10/05/24 13:50 36.2 C L 85 19 125/71 96 10/05/24 13:40 36.1 C L 85 18 98/62 L 96 10/05/24 13:30 85 18 117/66 96 10/05/24 13:20 83 18 96/74 L 96 10/05/24 13:12 36.0 C L 74 18 120/60 96 10/05/24 09:55 36.4 C L 81 18 124/89 97 10/05/24 08:27 36.5 C 75 16 123/72 95 10/05/24 07:27 80 10/05/24 03:21 36.5 C 87 16 101/72 94 10/04/24 23:27 36.4 C L 67 18 121/72 96 10/04/24 23:06 10/04/24 21:44 74 10/04/24 19:41 36.6 C 86 18 154/85 H 92 10/04/24 15:56 36.4 C L 91 H 18 112/79 95 10/04/24 15:55 94 H O2 Del Method O2 Flow Rate 10/05/24 13:50 Nasal Cannula 4 10/05/24 13:40 Nasal Cannula 4 10/05/24 13:30 Oxymask 5 10/05/24 13:20 Oxymask 8 10/05/24 13:12 Oxymask 8 10/05/24 09:55 Room Air 10/05/24 08:27 Room Air 10/05/24 07:27 10/05/24 03:21 Room Air 10/04/24 23:27 Room Air 10/04/24 23:06 Room Air 10/04/24 21:44 10/04/24 19:41 Room Air 10/04/24 15:56 Room Air 10/04/24 15:55 Pain Intensity Right Leg: Pain Intensity: 6 Transfer of Care Handoff Completed per policy Notes Mental Status: alert / awake / arousable Patient Amnestic to Procedure: Yes Nausea / Vomiting: adequately controlled Pain: adequately controlled Airway Patency, RR, SpO2: stable & adequate BP & HR: stable & adequate Hydration State: stable & adequate Anesthetic Complications: no major complications apparent and Pt Satisfied with anesthetic care
--- NOTE | 2024-10-05 17:31 | Hospitalist Progress Note ---
Date of Service October 05, 2024 Assessment & Plan (1) Right leg weakness: (2) Fall: (3) Acute right-sided back pain with sciatica: Plan #Falls #Right leg weakness #Right sided sciatica - admit to inpt (tele due to hypertension) - CT lumbar spine shows large inferiorly extruded disc fragment eccentric to the right at L3-L4 which impinges on the transiting right-sided nerve roots. - orthopedic on board, s/p right L3-L4 discectomy 10/05/24 - MRI reviewed - pain control with gabapentin and prn Tylenol and prn Tramadol - PT / OT consulted - fall precautions #HTN - pt states that his SBP runs 130-140 - suspect acute elevation due to pain - prn labetalol also ordered #BPH - started on flomax #DVT ppx: SCDs, hold off on initiating lovenox since pt is going for surgery tomorrow, will clear with ortho prior to starting post surgery Code status: Full code, he did say that he does not want to be prolonged with artificial support Admission and Anticipated Discharge Date Admission Date: October 03, 2024 Subjective No acute events overnight Returned from surgery and is doing well Review of Systems Review of Systems: Comprehensive ROS completed and is otherwise negative. Physical Exam Physical Exam: Gen: no acute distress, lying in bed comfortable HEENT: NC/AT, MMM Lungs: nonlabored breathing, CTAB CVS: s1s2nl, RRR Abd: nl bowel sounds, soft, NT / ND : no dick Ext: no edema Neuro: AAOx3, good strength b/l LEs Psych: calm cooperative Results & Data Results & Data Vital Signs (Past 12 Hours) Vital Signs Temp Pulse Pulse Pulse Resp BP Pulse Ox 10/05/24 16:23 36.8 C 96 H 16 110/63 96 10/05/24 15:29 36.3 C L 93 H 18 103/64 99 10/05/24 14:45 36.3 C L 94 H 16 145/74 H 95 10/05/24 14:10 36.3 C L 83 18 105/63 95 10/05/24 13:50 36.2 C L 85 19 125/71 96 10/05/24 13:40 36.1 C L 85 18 98/62 L 96 10/05/24 13:30 85 18 117/66 96 10/05/24 13:20 83 18 96/74 L 96 10/05/24 13:12 36.0 C L 74 18 120/60 96 10/05/24 09:55 36.4 C L 81 18 124/89 97 10/05/24 08:27 36.5 C 75 16 123/72 95 10/05/24 07:27 80 O2 Del Method O2 Flow Rate 10/05/24 16:23 Room Air 10/05/24 15:29 Nasal Cannula 2 10/05/24 14:45 Nasal Cannula 4 10/05/24 14:10 Nasal Cannula 4 10/05/24 13:50 Nasal Cannula 4 10/05/24 13:40 Nasal Cannula 4 10/05/24 13:30 Oxymask 5 10/05/24 13:20 Oxymask 8 10/05/24 13:12 Oxymask 8 10/05/24 09:55 Room Air 10/05/24 08:27 Room Air 10/05/24 07:27 PG Care Time/CCT Total # of Minutes Spent Total Time Spent with Patient: Total time spent is greater than 50% in coordination of care (as documented) at patient's floor/unit and/or counseling patient: Coding Level of Care Code 22522 SUB INP/OBS CARE 03/07MIN Diagnoses Right leg weakness R29.898 Fall W19.XXXA Acute right-sided back pain with sciatica M54.41
[2024-10-05] MEDS: DOCUSATE SODIUM/SENNA 50/8.6MG TAB PO SCH (20:46)
[2024-10-06] MEDS: POLYETHYLENE (MIRALAX) 17 GM PACK PO SCH (07:14)
[2024-10-06] MEDS: HYDROmorphone INJ 1 MG/ML SYRINGE IV PRN (07:46)
--- NOTE | 2024-10-06 09:09 | Orthopedic Progress Note ---
Date of Service October 06, 2024 Assessment & Plan (1) Herniation of lumbar intervertebral disc with radiculopathy: * Continue Current Treatment * S/p L3-4 discectomy * Dressing changed bedside this morning * May begin mobilization and HOB elevation * Weight bearing status: WBAT * Daily treatment: Physical Therapy/ Occupational Therapy per protocol * Pain control * Continue to monitor for ABLA * Disposition: TBD * Office/hospital f/u 2 weeks for progress check and staple/suture removal * Remainder care per primary team Subjective . Active Problems: S/p L3-4 discectomy POD 1 78 y/o male s/p L3-4 discectomy. Doing well overall, pain managed and improved function. Continued but improving low back and leg pain. Denies headache, neck pain. Denies tingling/numbness of lower extremities. Denies fever/chills, chest pain/SOB, nausea/vomiting. Otherwise no complaints. Review of Systems All systems reviewed & are unremarkable except as noted in HPI & below. Physical Exam .General: Alert and oriented, no acute distress * Constitutional: well-developed, well-nourished. * Respiratory: Normal respiratory effort, no distress * Gastrointestinal: No tenderness to palpation, no rigidity or guarding. * Skin: No rash or lesion. * Neurologic: Grossly normal * Musculoskeletal: Surgical dressing with mild bloody drainage. Lumbar spine region without obvious deformity or overlying skin changes. Minimal tenderness of surgical region, otherwise no tenderness b/l buttock or LE. Lumbar flexion/extension and rotation ROM with minimal pain. AROM b/l hip flexion, kn ee flexion/extension, ankle flexion/extension intact. Sensation intact plantar/dorsal foot. Brisk capillary refill. Results & Data Results & Data Laboratory Results . Diagnostic Findings . Lumbar Spine X-Ray 10/05/24 00:00 FL lumbar spine 2-3V CLINICAL HISTORY: L3-L4 COMPARISON STUDY: Lumbar spine MRI and CT October 03, 2024. Fluoroscopy time: 7 seconds. Number of fluoroscopic images: 1 Ka,r: 3.87 mGy. FINDINGS: Fluoroscopy was provided during L3-L4 discectomy. Surgical retractors are noted. Surgical instrument is directed over the canal at the L3-L4 level. IMPRESSION: Fluoroscopy provided during L3-L4 discectomy. ACT 112: Negative or not required by law. Electronically signed by: Emeka Hansen M.D. 10/05/2024 1:25 PM PG Care Time/CCT Total # of Minutes Spent Total Time Spent with Patient: Total time spent is greater than 50% in coordination of care (as documented) at patient's floor/unit and/or counseling patient: Coding Level of Care Code 06368 Post Operative Follow-Up Diagnoses Herniation of lumbar intervertebral disc with radiculopathy M51.16
--- NOTE | 2024-10-06 10:10 | Hospitalist Progress Note ---
Date of Service October 06, 2024 Assessment & Plan (1) Right leg weakness: (2) Fall: (3) Acute right-sided back pain with sciatica: Plan #Falls #Right leg weakness #Right sided sciatica - admit to inpt (tele due to hypertension) - CT lumbar spine shows large inferiorly extruded disc fragment eccentric to the right at L3-L4 which impinges on the transiting right-sided nerve roots. - MRI reviewed - orthopedic on board, s/p right L3-L4 discectomy 10/05/24 - pain control with gabapentin and prn Tylenol, prn oxycodone, prn dilaudid - PT / OT consulted - fall precautions #HTN - resolved - pt states that his SBP runs 130-140 - initial elevation due to pain - prn labetalol also ordered #BPH - started on flomax #DVT ppx: SCDs, cont hold off on initiating pharmacologic DVT ppx until cleared by ortho (spoke with Dr. Walton- he would like to wait until 10/07 to ensure there is no hematoma development). Re-discuss on 10/07 Code status: Full code, he did say that he does not want to be prolonged with artificial support Admission and Anticipated Discharge Date Admission Date: October 03, 2024 Subjective No acute events overnight Doing well post surgery Review of Systems Review of Systems: Comprehensive ROS completed and is otherwise negative. Physical Exam Physical Exam: Gen: no acute distress, lying in bed comfortable HEENT: NC/AT, MMM Lungs: nonlabored breathing, CTAB CVS: s1s2nl, RRR Abd: nl bowel sounds, soft, NT / ND : no dick Ext: no edema Neuro: AAOx3 Psych: calm, cooperative Results & Data Results & Data Vital Signs (Past 12 Hours) Vital Signs Temp Pulse Pulse Resp BP Pulse Ox O2 Del Method 10/06/24 07:39 36.6 C 85 16 126/77 93 Room Air 10/06/24 07:10 89 10/06/24 03:30 37.3 C 94 H 16 113/69 94 Room Air 10/05/24 23:18 36.5 C 103 H 16 132/75 93 Room Air PG Care Time/CCT Total # of Minutes Spent Total Time Spent with Patient: Total time spent is greater than 50% in coordination of care (as documented) at patient's floor/unit and/or counseling patient: Coding Level of Care Code 91936 SUB INP/OBS CARE 03/07MIN Diagnoses Right leg weakness R29.898 Fall W19.XXXA Acute right-sided back pain with sciatica M54.41
[2024-10-06] MEDS: HYDROmorphone INJ 0.5 MG/0.5 ML SYR IV PRN (13:19)
--- NOTE | 2024-10-06 13:32 | Communication Note ---
Date of Service: October 06, 2024 Continued drainage from incision. Pressure dressing placed. Resume bedrest, maintain supine in bed at all times. No PT/OT yet, order cancelled. Will evalu ate incision in the morning.
[2024-10-07 06:50] LABS: Hematocrit (blood only) 46.4 % (42.0-52.0); Hemoglobin 16.2 g/dl (14.0-18.0); Immature Granulocytes # (auto) 0.06 K/uL (0.01-0.20); Immature Granulocytes % (auto) 0.5 %; Mean Corpuscular Hemoglobin 31.8 pg (25.0-34.0); Mean Corpuscular Volume 91.2 fL (80.0-100.0); Platelet Count 274 K/uL (130-400); RDW Standard Deviation 44.8 fL (36.4-46.3); Red Blood Count 5.09 M/uL (4.70-6.10); White Blood Count 12.75 K/ul (4.8-10.8)
[2024-10-07 07:18] LABS: Anion Gap 10.0 (3-11); Blood Urea Nitrogen 22.0 mg/dl (6-23); Calcium 9.0 mg/dl (8.6-10.3); Carbon Dioxide 25.0 mmol/L (21-32); Chloride 100.0 mmol/L (98-107); Creatinine Clr Calc Pharmacy 73.9 ml/min; Glucose 119.0 mg/dl (70-99(Fasting)); Magnesium 2.1 mg/dl (1.7-2.4); Potassium 4.6 mmol/L (3.5-5.1); Sodium 135.0 mmol/L (136-145)
--- NOTE | 2024-10-07 08:18 | Hospitalist Progress Note ---
Date of Service October 07, 2024 Assessment & Plan (1) Right leg weakness: (2) Fall: (3) Acute right-sided back pain with sciatica: Plan This patient is a 78-year-old male who presented on 10/03 after sustaining a fall. #Falls | Right leg weakness | Right sided sciatica CT lumbar spine shows large inferiorly extruded disc fragment eccentric to the right at L3-L4 which impinges on the transiting right-sided nerve roots MRI reviewed Orthopedics on board, s/p right L3-L4 discectomy 10/05/24 Activity: Bedrest PT/OT orders on hold until cleared by orthopedics Pain control with gabapentin and Tylenol, oxycodone, and Dilaudid PRN Fall precautions #Leukocytosis | low-grade fever Mild leukocytosis at 12.75 noted on 10/07 Febrile at a 38.2 C Clinically, patient denies fever, but does have a productive cough CXR with hyperinflation, but no consolidation to indicate pneumonia COVID, flu, RSV negative Per Ortho, patient continues to have clear drainage from incision site Possible OR takeback for wound exploration on 10/08 Will make n.p.o. at midnight Cefazolin 2000 mg IV q8h If patient begins to show signs of clinical deterioration, would recommend adding on additional MRSA coverage for antibiotics #HTN (resolved) Patient states that his SBP tends to run 130-140 Initial elevation due to pain Labetalol IV PRN #BPH Continue Flomax Disposition: Continued stay on MedSurg telemetry; PT/OT evaluations pending DVT PPx: SCDs, cont hold off on initiating pharmacologic DVT ppx until cleared by Ortho (continue to hold on 10/07 as possible return to OR on 10/08 for wound exploration) Code status: Full code, he did say that he does not want to be prolonged with artificial support Admission and Anticipated Discharge Date Admission Date: October 03, 2024 Subjective Mr. Sierra is resting peacefully in bed this morning. He reports he has 0/10 pain in his back when he is lying still without movement. Only pain is when he attempts to turn in bed or move his legs. No numbness or tingling going down the legs. He denies saddle anesthesia. He is happy to report that he slept well last night. No new complaints at this time. The only change from yesterday, is that he continues to have a productive cough, and reports that he sometimes "chokes" on his sputum production. ROS: Patient endorses back pain with movements, and productive cough. Patient denies fever, chills, night sweats, chest pain, pleuritic CP, SOB, difficulty swallowing, abdominal pain, N/V, saddle anesthesia, or numbness or tingling going down the legs. Review of Systems Review of Systems: See HPI above Physical Exam Physical Exam: General: no acute distress; lying flat in bed; pleasant affect; non-toxic appearing; well-nourished; cooperative; SpO2 95% on RA HEENT: normocephalic, atraumatic; no scleral icterus; PERRLA; dry secretions around the mouth; vision and hearing intact Neck: supple; trachea midline Skin: warm, dry without signs of tenting; no cyanosis; no rashes, bruising, lesions, or erythema noted CV: chest wall NTP; RRR; S1/S2 normal; no murmurs/rubs/gallops; pulses intact and symmetric at radial, DP, and PT Lungs: no acute respiratory distress; productive cough, with potential aspiration of sputum while lying flat; symmetrical chest wall expansion; bibas ilar crackles in the upper lung caneal bilaterally ABD: Soft, NTP; BS present; no rebound/guarding; no distention MSK: no tics or fasciculations; no edema noted in the LEs b/l, nonerythematous; patient demonstrates ability wiggle toes; 3/5 strength when lifting right leg from the bed vs. 5/5 strength when lifting left leg from bed; (-) left straight leg lift; (+) right straight leg lift Neuro: A&Ox3; normal mood and affect; fluent speech; no focal deficits; patient report sensation is intact and symmetric in lower extremities bilaterally assessed via light touch Results & Data Results & Data Vital Signs (Past 12 Hours) Vital Signs Temp Pulse Pulse Resp BP Pulse Ox Pulse Ox 10/07/24 08:08 38.2 C H 92 H 20 192/90 H 95 10/07/24 07:33 94 H 10/07/24 04:00 36.6 C 88 18 161/85 H 93 10/06/24 23:42 36.8 C 92 H 18 151/88 H 93 10/06/24 22:10 100 H 10/06/24 21:00 96 O2 Del Method O2 Del Method 10/07/24 08:08 Room Air 10/07/24 07:33 10/07/24 04:00 Room Air 10/06/24 23:42 Room Air 10/06/24 22:10 10/06/24 21:00 Room Air PG Care Time/CCT Total # of Minutes Spent Total Time Spent with Patient: Total time spent is greater than 50% in coordination of care (as documented) at patient's floor/unit and/or counseling patient: Coding [place] [address] SUB INP/OBS CARE 2/35MIN Patient Type Established History Comprehensive Exam Comprehensive Medical Decision Making Moderate Complexity Diagnoses Right leg weakness R29.898 Fall W19.XXXA Acute right-sided back pain with sciatica M54.41
--- NOTE | 2024-10-07 09:13 | Orthopedic Progress Note ---
Date of Service October 07, 2024 Assessment & Plan (1) Herniation of lumbar intervertebral disc with radiculopathy: * Continue Current Treatment * S/p L3-4 discectomy * Dressing changed bedside this morning with Dr Walton * Drainage improving, will re-evaluate in a few hours and make determination on mobilization * Maintain bedrest, supine at all times except for a few minutes reverse Trendelenburg while eating * Weight bearing status: TBD * Daily treatment: Physical Therapy/ Occupational Therapy per protocol * Pain control * Continue to monitor for ABLA * Disposition: TBD * Office/hospital f/u 2 weeks for progress check and staple/suture removal * Remainder care per primary team Subjective Active Problems: S/p L3-4 discectomy POD 2 78 y/o male s/p L3-4 discectomy. Doing well overall, pain managed and improved function. Pain only at surgical site. No leg pain, neck pain, headaches. Denies tingling/numbness of lower extremities. Denies fever/chills, chest pain/SOB, nausea/vomiting. Otherwise no complaints. Review of Systems All systems reviewed & are unremarkable except as noted in HPI & below. Physical Exam * General: Alert and oriented, no acute distress * Constitutional: well-developed, well-nourished. * Respiratory: Normal respiratory effort, no distress * Gastrointestinal: No tenderness to palpation, no rigidity or guarding. * Skin: No rash or lesion. * Neurologic: Grossly normal * Musculoskeletal: Surgical dressing outer layer dry, deep layer with mild blood tinged drainage. Lumbar spine region without obvious deformity or overlying skin changes. Minimal tenderness of surgical region, otherwise no tenderness b/l buttock or LE. Lumbar flexion/extension and rotation ROM with minimal pain. AROM b/l hip flexion, knee flexion/extension, ankle flexion/extension intact. Sensation intact plantar/dorsal foot. Brisk capillary refill. Results & Data Results & Data Laboratory Results . Diagnostic Findings . PG Care Time/CCT Total # of Minutes Spent Total Time Spent with Patient: Total time spent is greater than 50% in coordination of care (as documented) at patient's floor/unit and/or counseling patient: Coding Level of Care Code 01751 Post Operative Follow-Up Diagnoses Herniation of lumbar intervertebral disc with radiculopathy M51.16
[2024-10-07] MEDS: ACETAMINOPHEN 500 MG TAB PO PRN (11:19)
--- NOTE | 2024-10-07 12:08 | XRay Report ---
XR chest 1V portable HISTORY: 78 years-old Male PNA r/o acute shortness of breath COMPARISON: May 14, 2023 TECHNIQUE: AP view of the chest FINDINGS: Cardiac silhouette is enlarged. Hypoinflation with mild mediastinal widening which is likely secondar y to technique. No pneumothorax, pleural effusion or airspace consolidation. Bones appear grossly int act. IMPRESSION: 1. Hypoinflation without acute process. 2. Cardiomegaly. ACT 112: Negative or not required by law. The above report was generated using voice recognition software. It may contain grammatical, syntax o r spelling errors. Electronically signed by: Junaid Caldwell M.D. 10/07/2024 12:07 PM
--- NOTE | 2024-10-07 12:16 | Communication Note ---
Date of Service: October 07, 2024 Dressing change at 1200 today. Decreasing but continued clear drainage from incision. Continues with mild incisional pain, otherwise denies leg pain, upper back/neck pain or headache, or peripheral pain/radicular symptoms. Maintain bedrest, to be supine at all times outside of slight revers [place] for meals only. Limited side-lying ok for bathing/toileting. Dressing change q8 hours in form of pressure dressing. Begin Ancef. Will check incision in the morning. NPO midnight for possible OR take-back for wound exploration.
[2024-10-07 16:32] LABS: Influenza A virus by PCR Negative (Neg); Influenza B virus by PCR Negative (Neg); SARS CoV2 RNA(COVID-19) Ceph NEGATIVE (Negative)
[2024-10-08 08:57] LABS: Hematocrit (blood only) 43.5 % (42.0-52.0); Hemoglobin 15.4 g/dl (14.0-18.0); Immature Granulocytes # (auto) 0.06 K/uL (0.01-0.20); Immature Granulocytes % (auto) 0.5 %; Mean Corpuscular Hemoglobin 31.8 pg (25.0-34.0); Mean Corpuscular Volume 89.9 fL (80.0-100.0); Platelet Count 278 K/uL (130-400); RDW Standard Deviation 42.7 fL (36.4-46.3); Red Blood Count 4.84 M/uL (4.70-6.10); White Blood Count 11.15 K/ul (4.8-10.8)
[2024-10-08 09:11] LABS: Anion Gap 8.0 (3-11); Blood Urea Nitrogen 22.0 mg/dl (6-23); Calcium 8.7 mg/dl (8.6-10.3); Carbon Dioxide 24.0 mmol/L (21-32); Chloride 101.0 mmol/L (98-107); Creatinine Clr Calc Pharmacy 76.0 ml/min; Glucose 114.0 mg/dl (70-99(Fasting)); Potassium 4.1 mmol/L (3.5-5.1); Sodium 133.0 mmol/L (136-145)
--- NOTE | 2024-10-08 10:56 | Orthopedic Progress Note ---
Date of Service October 08, 2024 Assessment & Plan (1) Lumbar spondylosis: (2) Lumbar stenosis without neurogenic claudication: Plan I discussed with the patient today that although he has some drainage from his incision he does not have any signs of a CSF leak clinically. At the end of the case I did not find any durotomy that would benefit from repair however he does continue to have some drainage which is asymptomatic. I discussed with Dr. Medina from pain management the possibility of a blood patch if there is an epidural leak, CT myelogram of the lumbar spine has been ordered. If there is sign of CSF leak would likely proceed with a blood patch to stop any drainage. If there is no sign of CSF leak this could be drainage just coming from the considerable amount of scar tissue from his previous thoracolumbar fusion incision which was part of the operative site. Subjective Patient seen and examined this morning, dressing was changed by HEMALATHA Lewis and there was again some clear drainage on the dressing overnight. He again is asymptomatic, does not report any headaches light reaction or other neurologic symptoms consistent with a CSF leak. Will check the dressing again around noon. Review of Systems All systems reviewed & are unremarkable except as noted in HPI & below. Physical Exam Neurologically intact L2-S1 myotomes and dermatomes No signs of infection at the incision, current dressing is clean dry and intact Results & Data Results & Data Laboratory Results . Diagnostic Findings . PG Care Time/CCT Total # of Minutes Spent Total Time Spent with Patient: Total time spent is greater than 50% in coordination of care (as documented) at patient's floor/unit and/or counseling patient: Coding Level of Care Code 94666 Post Operative Follow-Up Diagnoses Lumbar spondylosis M47.816 Lumbar stenosis without neurogenic claudication M48.061
--- NOTE | 2024-10-08 11:53 | Orthopedic Progress Note ---
Date of Service October 08, 2024 Assessment & Plan (1) S/P lumbar discectomy: * Continue Current Treatment * Dressing changed this morning. Dr. Walton discussed with pain management about possible blood patch. Will get CT to check of CSF leak as patient is asymptomatic clinically of dural leak. Drainage may be from soft tissue and previous surigcal scar from thoracolumbad fusion. * Disposition: TBD * Daily treatment: Physical Therapy/ Occupational Therapy per protocol * Weight bearing status: TBD * Continue to monitor for ABLA * Pain control * DVT prophylaxis SCDs * Office/hospital f/u 2 weeks for progress check and staple/suture removal * Remainder care per primary team * (2) Lumbar spondylosis: (3) Lumbar stenosis without neurogenic claudication: Subjective . Active Problems: S/p L3-L4 discectomy POD 3 78 y/o male s/p L3-L4 discectomy with Dr. Walton. Doing well overall, pain managed and improved function. Denies fever/chills, chest pain/SOB, nausea/vomiting. Otherwise no complaints. Review of Systems All systems reviewed & are unremarkable except as noted in HPI & below. Physical Exam * General: Alert and oriented, no acute distress * Constitutional: well-developed, well-nourished. * Respiratory: Normal respiratory effort, no distress * Gastrointestinal: No tenderness to palpation, no rigidity or guarding. * Skin: No rash or lesion. * Neurologic: Grossly normal * Musculoskeletal: Surgical dressing changed, small amount of clear drainage noted on previous dressing, no active drainage from wound. Intact david, skin with clean, dry and without erythema. Lumbar spine region without obvious deformity or overlying skin changes. Minimal tenderness of surgical region, otherwise no tenderness b/l buttock or LE. Lumbar flexion/extension and rotation ROM with minimal pain. AROM b/l hip flexion, knee flexion/extension, ankle flexion/extension intact. Sensation intact plantar/dorsal foot. Brisk capillary refill. . Results & Data Results & Data Laboratory Results . Laboratory Results - last 24 hr 10/07/24 10/08/24 15:35 07:26 WBC 11.15 H RBC 4.84 Hgb 15.4 Hct 43.5 MCV 89.9 MCH 31.8 MCHC 35.4 RDW Std Deviation 42.7 RDW Coeff of Todd 13.0 Plt Count 278 MPV 9.2 L Immature Gran % (Auto) 0.5 Neut % (Auto) 75.5 Lymph % (Auto) 11.7 Schley % (Auto) 11.4 Eos % (Auto) 0.4 Baso % (Auto) 0.5 Neut # (Auto) 8.41 H Lymph # (Auto) 1.31 Schley # (Auto) 1.27 H Eos # (Auto) 0.04 Baso # (Auto) 0.06 Immature Gran # (Auto) 0.06 Sodium 133 L Potassium 4.1 Chloride 101 Carbon Dioxide 24 Anion Gap 8 BUN 22 Creatinine 0.76 Est Cr Clr Drug Dosing 76.0 eGFR 91.43 BUN/Creatinine Ratio 28.9 H Glucose 114 H Calcium 8.7 SARS-CoV-2 (PCR) NEGATIVE Influenza Type A (PCR) Negative Influenza Type B (PCR) Negative RSV (RT-PCR) Negative Diagnostic Findings . PG Care Time/CCT Total # of Minutes Spent Total Time Spent with Patient: Total time spent is greater than 50% in coordination of care (as documented) at patient's floor/unit and/or counseling patient: Coding Level of Care Code 35208 Post Operative Follow-Up Diagnoses S/P lumbar discectomy Z98.890 Lumbar spondylosis M47.816 Lumbar stenosis without neurogenic claudication M48.061
--- NOTE | 2024-10-08 12:41 | Orthopedic Progress Note ---
Date of Service October 08, 2024 Subjective . Update- dressing changed to a pressure dressing- sterile gauze, ABD and tegaderm. Small amount of clear drainage on previous dressing. Discussed with Dr. Walton. Would like to cancel the CT myleogram and allow patient to eat and get uo for 5-10 minutes at a time as long as he remains asymptomatic. Will make NPO after midnight and reevaluate dressing in the morning for possible blood patch tomorrow. Review of Systems All systems reviewed & are unremarkable except as noted in HPI & below. Physical Exam . Results & Data Results & Data Laboratory Results . Diagnostic Findings . PG Care Time/CCT Total # of Minutes Spent Total Time Spent with Patient: Total time spent is greater than 50% in coordination of care (as documented) at patient's floor/unit and/or counseling patient: Coding Level of Care Code 21563 Post Operative Follow-Up
--- NOTE | 2024-10-08 12:42 | Hospitalist Progress Note ---
"Date of Service October 08, 2024 Assessment & Plan (1) Right leg weakness: (2) Fall: (3) Acute right-sided back pain with sciatica: Plan This patient is a 78-year-old male who presented on 10/03 after sustaining a fall. #Falls | Right leg weakness | Right sided sciatica CT lumbar spine shows large inferiorly extruded disc fragment eccentric to the right at L3-L4 which impinges on the transiting right-sided nerve roots MRI reviewed Orthopedics on board, s/p right L3-L4 discectomy 10/05/24 PT/OT orders on hold until cleared by orthopedics Pain control with gabapentin and Tylenol, oxycodone, and Dilaudid PRN Per Ortho, patient continues to have clear drainage from incision site Improving on 10/08 NPO at midnight Potential blood patch with ortho on 10/09 Fall precautions #Leukocytosis | low-grade fever Mild; WBC count trend 12->11 One fever at 38.2 C (resolved) Clinically, patient denies fever, but does have a productive cough CXR with hyperinflation, but no consolidation to indicate pneumonia COVID, flu, RSV negative Continue empiric perioperative coverage with Ancef 2000mg IV q8h #HTN (resolved) Patient states that his SBP tends to run 130-140 Initial elevation due to pain Labetalol IV PRN #Hyponatremia Mild; Na 133 on 10/08 Continue to monitor with daily BMPs #BPH Continue Flomax Disposition: Continued stay on MedSurg telemetry - possible blood patch with Ortho on 10/09 DVT PPx: SCDs, cont hold off on initiating pharmacologic DVT ppx until cleared by Ortho (continue to hold on 10/07 as possible return to OR on 10/08 for wound exploration) Code status: Full code, he did say that he does not want to be prolonged with artificial support Admission and Anticipated Discharge Date Admission Date: October 03, 2024 Subjective Mr. Sierra is resting peacefully in bed this morning. He reports no pain in his lower back or right incision site at this time. He does endorse focal tenderness to incision site. His only complaint at this time is neck stiffness. ROS: Patient endorses neck stiffness, back pain with movements, and productive cough. Patient denies fever, chills, night sweats, chest pain, pleuritic CP, SOB, difficulty swallowing, abdominal pain, N/V, saddle anesthesia, or numbness or tingling going down the legs. Review of Systems 2 Review of Systems: See HPI above Physical Exam 2 Physical Exam: General: no acute distress; lying supine in bed; pleasant affect; non-toxic appearing; well-nourished; cooperative; SpO2 95% on RA HEENT: normocephalic, atraumatic; no scleral icterus; PERRLA; dry secretions around the mouth; vision and hearing intact Neck: supple; trachea midline; patient reports pain when bending the neck forward Skin: warm, dry without signs of tenting; no cyanosis; no rashes, bruising, lesions, or erythema noted CV: chest wall NTP; RRR; S1/S2 normal; no murmurs/rubs/gallops; pulses intact and symmetric at radial, DP, and PT Lungs: no acute respiratory distress; productive cough, with potential aspiration of sputum while lying flat; symmetrical chest wall expansion; bibasilar crackles in the upper lung canela bilaterally ABD: Soft, NTP; BS present; no rebound/guarding; no distention MSK: no tics or fasciculations; no edema noted in the LEs b/l, nonerythematous; patient demonstrates ability wiggle toes; 4/5 strength when lifting right leg from the bed vs. 5/5 strength when lifting left leg from bed; (-) left straight leg lift; (+) right straight leg lift Back: Incision site without erythema; does exhibit mild edema; clear fluid drainage on dressing; TTP around the site Neuro: A&Ox3; normal mood and affect; occasionally garbled speech; he reports sensation is intact and symmetric in lower extremities bilaterally assessed via light touch Results & Data Results & Data Vital Signs (Past 12 Hours) Vital Signs Temp Pulse Pulse Resp BP Pulse Ox O2 Del Method 10/08/24 11:23 37.2 C 87 16 135/84 95 Room Air 10/08/24 08:00 Room Air 10/08/24 07:57 36.5 C 16 145/92 H 94 Room Air 10/08/24 07:02 93 H 10/08/24 04:19 36.8 C 101 H 16 162/98 H 91 Room Air PG Care Time/CCT Total # of Minutes Spent Total Time Spent with Patient: Total time spent is greater than 50% in coordination of care (as documented) at patient's floor/unit and/or counseling patient: Coding [place] [address] SUB INP/OBS CARE 2MIN Patient Type Established History Comprehensive Exam Comprehensive Medical Decision Making Moderate Complexity Diagnoses Right leg weakness R29.898 Fall W19.XXXA Acute right-sided back pain with sciatica M54.41"
[2024-10-08] MEDS ORDERED: Nursing to Pharmacy Communication SCH (23:15)
[2024-10-09] MEDS ORDERED: LABETALOL HCL IV 5 MG/ML 20ML IV PRN ×2 (07:39→08:20)
[2024-10-09 07:53] LABS: Hematocrit (blood only) 45.6 % (42.0-52.0); Hemoglobin 15.7 g/dl (14.0-18.0); Immature Granulocytes # (auto) 0.07 K/uL (0.01-0.20); Immature Granulocytes % (auto) 0.6 %; Mean Corpuscular Hemoglobin 31.5 pg (25.0-34.0); Mean Corpuscular Volume 91.4 fL (80.0-100.0); Platelet Count 281 K/uL (130-400); RDW Standard Deviation 44.6 fL (36.4-46.3); Red Blood Count 4.99 M/uL (4.70-6.10); White Blood Count 11.38 K/ul (4.8-10.8)
[2024-10-09] MEDS: OPTIRAY 320 125ml IV ONE (07:55)
--- NOTE | 2024-10-09 07:58 | Orthopedic Progress Note ---
Date of Service October 09, 2024 Assessment & Plan (1) S/P lumbar discectomy: Plan Patient is status post lumbar discectomy, going for CT scan of the head for stroke alert. He appears to be neuro intact other than a mild left-sided facial droop. This morning he answers questions appropriately, minimal drainage on the bandage today, he has not complained of headaches at all this week, the only pain he has mentioned is some right sided neck pain last night. He was tentatively set up for a blood patch this morning, given the stroke alert and fact that drainage has slowed unsure we will proceed with this, will discuss with Dr. Medina. Subjective Patient is a 78-year-old gentleman, day 4 status post lumbar discectomy. Code stroke was called this morning for facial droop and slurred speech. Does not report any headaches however does still complain of some right sided neck pain with movement. Being wheeled down to the CT scanner for head CT at this time. Moving all extremities okay. Review of Systems All systems reviewed & are unremarkable except as noted in HPI & below. Physical Exam Good strength in all extremities I checked his dressing this morning, minimal amount of serous drainage on the dressing with no saturation through any of the gauze Results & Data Results & Data Laboratory Results . Diagnostic Findings . PG Care Time/CCT Total # of Minutes Spent Total Time Spent with Patient: Total time spent is greater than 50% in coordination of care (as documented) at patient's floor/unit and/or counseling patient: Coding Level of Care Code 27865 Post Operative Follow-Up Diagnoses S/P lumbar discectomy Z98.890
[2024-10-09 08:03] LABS: INR 1.2 (0.9-1.1); Partial Thromboplastin Time 31 Seconds (21-31); Prothrombin Time 12.5 Seconds (9.0-12.0)
--- NOTE | 2024-10-09 08:08 | CT Scan Report ---
CT ANGIOGRAPHY OF THE NECK WITH CONTRAST CLINICAL HISTORY: stroke alert, facial droop COMPARISON STUDY: No previous studies for comparison. Technique: CT angiography of the carotid and vertebral arteries was obtained using Optiray and 3D rec onstruction on an independent workstation. NASCET criteria was utilized. Automated exposure control was utilized for the study. A dose lowering technique was utilized adhering to the principles of ALA RA. CT DOSE: 1171.61 mGy.cm Findings: Visualized portions of the lung apices are unremarkable. There is no cervical lymphadenopat hy. There are no cervical spine fractures. The left vertebral artery is dominant and patent. There is moderate stenosis of the intracranial portion of the left vertebral artery. The right vertebral chad ry is diminutive on a congenital basis. No flow is identified within portions of the intracranial por tion the right vertebral artery. This is probably chronic. There is moderate noncalcified atheroscler otic plaque within the mid left common carotid artery which results in mild stenosis. There is modera te plaque within the proximal left internal carotid artery without stenosis. The right common carotid artery is patent. There is moderate to extensive plaque within the proximal right internal carotid a rtery which results in 60-70% stenosis of this vessel which extends for approximately 2 cm. IMPRESSION: 1. 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 2. Moderate plaque within the proximal left internal carotid artery without stenosis. Mild stenosis o f the mid left common carotid artery. 3. Dominant, patent left vertebral artery. Moderate stenosis of the intracranial portion of the left vertebral artery. 4. 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 No flow identified within portions of the intracranial portion of the right vertebral artery, probably chronic. ACT 112: Negative or not required by law. Electronically signed by: Emeka Hansen M.D. 10/09/2024 8:07 AM
[2024-10-09 08:19] LABS: Anion Gap 6.0 (3-11); Blood Urea Nitrogen 28.0 mg/dl (6-23); Calcium 9.0 mg/dl (8.6-10.3); Carbon Dioxide 29.0 mmol/L (21-32); Chloride 99.0 mmol/L (98-107); Creatinine Clr Calc Pharmacy 67.0 ml/min; Glucose 116.0 mg/dl (70-99(Fasting)); Magnesium 2.3 mg/dl (1.7-2.4); Potassium 4.4 mmol/L (3.5-5.1); Sodium 134.0 mmol/L (136-145)
[2024-10-09] MEDS: LACTATED RINGER'S 1,000 ML IV SCH (08:28)
--- NOTE | 2024-10-09 08:39 | CT Scan Report ---
CT ANGIOGRAM OF THE BRAIN CLINICAL HISTORY: Strokelike symptoms. Facial droop. COMPARISON STUDY: Unenhanced CT scan of the brain performed concurrently on 10/09/2024. TECHNIQUE: Following the IV administration of 112 cc of Optiray 320, CT angiogram of the brain was pe rformed from the skull base to the vertex. Images are reviewed in the axial, sagittal, and coronal pl anes. 3-D MIPS images are created and assessed. IV contrast was administered without complication. A dose lowering technique was utilized adhering to the principles of ALARA. FINDINGS: Brain parenchyma: There are several foci of pneumocephalus, greatest along the left convexity and the falx. There are also subcentimeter loculations of fat attenuation material in the left sylvian fissu re and in the suprasellar cistern. There is age-related involutional change noting moderate to advanc ed confluent subcortical and periventricular microangiopathic disease. There is no evidence of hemorr brice or mass effect noting angiographic phase technique. There is no evidence of enhancing mass lesio n on the angiogram phase images. No extra-axial fluid collection is seen. Razo-white matter different iation is preserved. Ventricles, sulci, and cisterns: Prominent secondary to involutional change. Megacisterna magna is in cidentally noted. CT angiogram of the brain: There is atherosclerotic calcification of the cavernous carotid and verteb ral arteries. The internal carotid arteries at the skull base are patent, as are the anterior and mid dle cerebral arteries. 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 This is reconstituted via retrograde flow below the basilar. The left vertebral artery is dominant an d widely patent, and the basilar artery is patent. There is origin of the left posterior cerebr al artery. No aneurysm is seen. There is high-grade stenosis of the proximal right posterior cerebral artery seen on axial image #83. No additional foci of high-grade stenosis are seen throughout the in tracranial circulation. Dural sinuses: Clear as visualized. Orbits: The bony orbits are intact. The orbital contents are normal as visualized noting a right ocul ar lens implant. There is a metallic foreign body overlying the left orbit on axial image #81. Sinuses and mastoids: The paranasal sinuses are clear. The mastoid air cells are well pneumatized. Ce rumen is noted in the external auditory canals. Calvarium: Unremarkable. IMPRESSION: 1. There is a metallic foreign body in the region of the left orbit. This is a contraindication to MR I. 2. There is no evidence of hemorrhage or mass effect noting angiographic phase technique. 3. There are several foci of pneumocephalus, likely subdural in location. This is likely iatrogenic g iven the history of recent spine surgery. 4. Additionally, there are subcentimeter loculations of fat seen in the suprasellar region and along the sylvian fissures. This may also be iatrogenic, or could potentially represent several small lipom as or the sequelae of a ruptured dermoid. 5. 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 The vessel is diminutive, and this is age-indeterminate but favored to be chronic. 6. There is high-grade stenosis of the proximal right posterior cerebral artery. 7. The remaining intracranial vessels are patent. ACT 112: Negative or not required by law. Electronically signed by: Luis Alfredo Martinez M.D. 10/09/2024 8:38 AM
--- NOTE | 2024-10-09 08:41 | CT Scan Report ---
CT head/brain wo con CLINICAL HISTORY: 78 years-old Male with stroke alert, facial droop. TECHNIQUE: Multiple axial CT images of the head were obtained without contrast. A dose lowering tech nique was utilized adhering to the principles of ALARA. COMPARISON: CTA head of same day FINDINGS: No acute intracranial hemorrhage, midline shift, intracranial mass, hydrocephalus, or acute territori al infarct. Involutional changes with extensive and confluent white matter hypodensities suggestive o f chronic microvascular ischemic disease. Prominent calcifications of the distal left vertebral arter y. Scattered foci of extra-axial air and fat noted within the extra-axial spaces near the [place] of [place], left sylvian fissure and adjacent to the left frontal lobe and anterior falx cerebri. The calvarium is intact. 2 mm metallic density foreign body is noted inferomedial to the left orbit, image 27 series 4. The paranasal sinuses, mastoid air cells, and middle ear cavities are clear. IMPRESSION: 1. No acute intracranial hemorrhage, midline shift or acute territorial infarct. 3. Scattered foci of extra-axial air and fat noted within the extra-axial spaces near the [place] of [place] and left frontal lobe, possibly iatrogenic from recent spinal procedure. 3. 2 mm metallic density foreign body inferomedial to the left globe which is a contraindication for MRI. 4. Involutional changes with chronic microvascular ischemic disease. ACT 112: Negative or not required by law. The above report was generated using voice recognition software. It may contain grammatical, syntax o r spelling errors. Electronically signed by: Junaid Caldwell M.D. 10/09/2024 8:40 AM
--- NOTE | 2024-10-09 09:13 | Hospitalist Progress Note ---
Date of Service October 09, 2024 Assessment & Plan (1) Right leg weakness: (2) Fall: (3) Acute right-sided back pain with sciatica: Plan This patient is a 78-year-old male who presented on 10/03 after sustaining a fall. # Strokelike symptoms Occurred at approximately 0730 on the morning of 10/09 Not a thrombolytic candidate due to recent spinal surgery Head CT revealed no acute intracranial hemorrhage, midline shift, or acute territorial infarct Did reveal a 2 mm metallic density foreign body in the left globe (MRI contraindicated) Neck CTA revealed a 60-70% stenosis of the proximal right ICA Bilateral carotid Doppler ordered, pending Given this finding, telestroke (Dr. Bryan Koenig) did recommended full dose of aspirin 324mg Aspirin 324 mg p.o. x 1 Patient transferred to PCU Permissive HTN in the setting of acute strokelike symptoms Will plan for interval head CT Neurology consult appreciated Neurochecks q4h N.p.o. status pending dysphagia screen; convert p.o. to IV medications were Speech therapy consult appreciated Initiate atorvastatin 40 mg QAM AM Fasting lipid panel + A1c Discussed case with both Dr. Walton and Dr. Garcia Despite patient still having posterior head pain/headache, will defer blood patc h today in favor of starting antiplatelet therapy Magnesium sulfate 1 g IV x 1 IVF with LR at 125 mL/hr x 3L # ? Medication allergy ADDENDUM on the evening of 10/09: Per nursing staff, patient's granddaughter was in the hospital visiting this afternoon, and noted that the patient was reportedly having visual hallucinations. He was "reaching for things in bed" that were not there. Granddaughter reports this is what happens whenever he takes oxycodone, and that it should be on his allergy list. While oxycodone is not currently on his allergy list, meperidine is, which has a listed side effect of "hallucinations". Multiple nursing staff report being in and out of the room throughout the afternoon, and did not report any auditory or visual hallucinations. Patient was reassessed at bedside around 1715: He is alert and oriented x 3, able to converse appropriately, and denies any visual or auditory hallucinations at this time. Per review of MAR, patient given oxycodone 10 mg at 0316 and 0724 this morning (just prior to stroke alert). Yet to be determined if this was main contributor to patient's acute changes this morning (which included garbled speech, c onfusion, and left-sided facial droop) Oxycodone discontinued. #Falls | Right leg weakness | Right sided sciatica CT lumbar spine shows large inferiorly extruded disc fragment eccentric to the right at L3-L4 which impinges on the transiting right-sided nerve roots MRI reviewed Orthopedics on board, s/p right L3-L4 discectomy 10/05/24 PT/OT orders on hold until cleared by orthopedics Pain control with gabapentin and Tylenol, oxycodone, and Dilaudid PRN Per Ortho, patient continues to have clear drainage from incision site Improving on 10/08 NPO at midnight Potential blood patch with ortho on 10/09 Fall precautions #Leukocytosis | low-grade fever Mild; WBC count trend 12->11 One fever at 38.2 C (resolved) Clinically, patient denies fever, but does have a productive cough CXR with hyperinflation, but no consolidation to indicate pneumonia COVID, flu, RSV negative Continue empiric perioperative coverage with Ancef 2000mg IV q8h #HTN (resolved) Patient states that his SBP tends to run 130-140 Initial elevation due to pain Labetalol IV PRN #Hyponatremia Mild; Na 133 on 10/08 Continue to monitor with daily BMPs #BPH Continue Flomax Disposition: Patient transferred from [facility] telemetry to PCU on 10/09 in the setting of acute strokelike symptoms DVT PPx: SCDs, cont hold off on initiating pharmacologic DVT ppx until cleared by Ortho (continue to hold on 10/07 as possible return to OR on 10/08 for wound exploration) Code status: Full code, he did say that he does not want to be prolonged with artificial support Updated patient's granddaughter (Inga) over the phone on 10/09 regarding stroke alert. Granddaughter appreciative of conversation and updates. Admission and Anticipated Discharge Date Admission Date: October 03, 2024 Subjective Stroke alert was called at approximately 0730 this morning due to garbled speech and left-sided facial droop. Note: I was not present at time of the stroke alert, but arrived to assess patient at bedside around approximately 0800. Patient is conversational at this time, but does exhibit slurred speech. Patient reports that he was able to sleep last night, but is having his "days and nights are mixed up". He reports he is having "terrible pain" in the back of his head, that has been ongoing since yesterday. He denies prior history of stroke. He does report that he has a family history of stroke (mother). Patient reports he has taken aspirin in the past; no medication allergies to his knowledge; she denies PMH of brain bleeds, GI bleeds, or bleeding disorders. ROS: Patient endorses neck pain, severe posterior head pain, slurred speech, and facial droop. Patient denies fever, headache, chest pain, SOB, pleuritic CP, abdominal pain, N/V, or numbness or tingling the arms or legs. Review of Systems Review of Systems: See HPI above Physical Exam Physical Exam: General: no acute distress; lying supine in bed; pleasant affect; non-toxic appearing; well-nourished; cooperative; SpO2 94% on RA HEENT: normocephalic, atraumatic; no scleral icterus; PERRLA with EOMs intact; dry secretions around the mouth; vision and hearing appear to be intact; patient demonstrates ability to lift eyebrows without unilateral deficits; patient demonstrates a left-sided facial droop when smiling; posterior scalp is TTP Neck: supple; trachea midline; patient is able to shrug shoulders against resistance without eliciting pain or unilateral deficits; patient does endorse tenderness to palpation in the posterior cervical spine Skin: warm, dry without signs of tenting; no cyanosis; no rashes, bruising, lesions, or erythema noted CV: chest wall NTP; RRR; S1/S2 normal; no murmurs/rubs/gallops; pulses intact and symmetric at radial, DP, and PT Lungs: no acute respiratory distress; productive cough, with potential aspiration of sputum while lying flat; symmetrical chest wall expansion; bibasilar crackles in the upper lung canela bilaterally ABD: Soft, NTP; BS present; no rebound/guarding; no distention MSK: no tics or fasciculations; no edema noted in the LEs b/l, nonerythematous; 5/5 trackwalker strength bilateral; patient demonstrates ability to wiggle toes bilaterally; patient is able to lift legs off the bed bilaterally with 4/5 strength; no unilateral deficits appreciated Neuro: A&Ox3; garbled speech; left-sided facial droop; negative pronator drift; patient report sensation is intact and symmetric in the upper extremities and lower extremities bilaterally Results & Data Results & Data Vital Signs (Past 12 Hours) Vital Signs Temp Pulse Pulse Resp BP BP Pulse Ox 10/09/24 07:55 77 10/09/24 07:36 36.8 C 78 18 186/115 H 181/113 H 94 10/09/24 05:34 75 10/09/24 03:43 36.8 C 84 18 137/82 93 10/08/24 22:53 36.9 C 84 18 149/87 H 92 10/08/24 21:45 79 O2 Del Method 10/09/24 07:55 10/09/24 07:36 Room Air 10/09/24 05:34 10/09/24 03:43 Room Air 10/08/24 22:53 Room Air 10/08/24 21:45 PG Care Time/CCT Total # of Minutes Spent Total Time Spent with Patient: Total time spent is greater than 50% in coordination of care (as documented) at patient's floor/unit and/or counseling patient: Coding [place] [address] SUB INP/OBS CARE 3/50MIN Patient Type Established History Comprehensive Exam Comprehensive Medical Decision Making High Complexity Diagnoses Right leg weakness R29.898 Fall W19.XXXA Acute right-sided back pain with sciatica M54.41
[2024-10-09] MEDS: ASPIRIN 81 MG CHEW PO STA (10:04)
[2024-10-09] MEDS: MAGNESIUM SULFATE / D5W 1 GM/100 ML BAG IV ONE (10:18)
[2024-10-09] MEDS ORDERED: PHARMACIST DISCHARGE MED REC CONSULT PRN (13:43)
--- NOTE | 2024-10-09 14:19 | Ultrasound Report ---
US carotid doppler BI CLINICAL HISTORY: 78 years-old Male with R ICA stenosis. 60-70% stenosis of the right ICA COMPARISON: CTA neck of same day TECHNIQUE: Multiple real time sonographic images of the carotid bifurcations were obtained assessing abel scale, color Doppler and spectral wave form appearance FINDINGS: RIGHT CAROTID: The peak systolic velocity measured within the right ICA is 359 cm/sec in the mid ICA . The end diastolic velocity measured 96 cm/sec. The ICA to CCA ratio measured 4.3 which correlates with a stenosis of greater than 70%. Prominent atherosclerosis. LEFT CAROTID: The peak systolic velocity measured within the left ICA is 71 cm/sec. The end diastol ic velocity measured 14 cm/sec. The ICA to CCA ratio measured 0.56 which correlates with a stenosis o f 0-50%. [id number] atherosclerosis. There is normal antegrade vertebral flow bilaterally. IMPRESSION: 1. Prominent atherosclerosis of the right carotid bulb redemonstrated with elevated peak systolic ve locities suggestive of stenosis greater than 70% (these velocities may be falsely elevated secondary to associated carotid tortuosity as the same-day CTA demonstrates 60-70% stenosis). 2. No significant stenosis of the left ICA. 3. Normal antegrade vertebral flow bilaterally. ACT 112: Negative or not required by law. The above report was generated using voice recognition software. It may contain grammatical, syntax o r spelling errors. Electronically signed by: Junaid Caldwell M.D. 10/09/2024 2:17 PM
[2024-10-10 07:42] LABS: Hematocrit (blood only) 43.6 % (42.0-52.0); Hemoglobin 15.5 g/dl (14.0-18.0); Immature Granulocytes # (auto) 0.02 K/uL (0.01-0.20); Immature Granulocytes % (auto) 0.2 %; Mean Corpuscular Hemoglobin 32.3 pg (25.0-34.0); Mean Corpuscular Volume 90.8 fL (80.0-100.0); Platelet Count 307 K/uL (130-400); RDW Standard Deviation 42.4 fL (36.4-46.3); Red Blood Count 4.80 M/uL (4.70-6.10); White Blood Count 8.98 K/ul (4.8-10.8)
[2024-10-10 08:06] LABS: Anion Gap 10.0 (3-11); Blood Urea Nitrogen 21.0 mg/dl (6-23); Calcium 8.5 mg/dl (8.6-10.3); Carbon Dioxide 24.0 mmol/L (21-32); Chloride 100.0 mmol/L (98-107); Cholesterol 166.0 mg/dl (0-200); Creatinine Clr Calc Pharmacy 88.9 ml/min; Glucose 106.0 mg/dl (70-99(Fasting)); HDL Cholesterol 41.0 mg/dl; Potassium 3.8 mmol/L (3.5-5.1); Sodium 134.0 mmol/L (136-145); Triglycerides 81.0 mg/dl (0-150)
--- NOTE | 2024-10-10 08:25 | Hospitalist Progress Note ---
Date of Service October 10, 2024 Assessment & Plan (1) Right leg weakness: (2) Fall: (3) Acute right-sided back pain with sciatica: Plan This patient is a 78-year-old male who presented on 10/03 after sustaining a fall. # Strokelike symptoms Occurred at approximately 0730 on the morning of 10/09 Not a thrombolytic candidate due to recent spinal surgery Head CT revealed no acute intracranial hemorrhage, midline shift, or acute territorial infarct Did reveal a 2 mm metallic density foreign body in the left globe (MRI contraindicated) Neck CTA revealed a 60-70% stenosis of the proximal right ICA Bilateral carotid Doppler ordered, pending Given this finding, telestroke (Dr. Bryan Koenig) did recommended full dose of aspirin 324mg Aspirin 324 mg p.o. x 1 Patient transferred to PCU Permissive HTN in the setting of acute strokelike symptoms Will plan for interval head CT Neurology consult appreciated Neurochecks q4h N.p.o. status pending dysphagia screen; convert p.o. to IV medications were Speech therapy consult appreciated Initiate atorvastatin 40 mg QAM A1c WNL at 5.5 Fasting lipid panel WNL Discussed case with both Dr. Walton and Dr. Garcia Despite patient still having posterior head pain/headache, will defer blood patch today in favor of starting antiplatelet therapy Magnesium sulfate 1 g IV x 1 IVF with LR at 125 mL/hr x 3L Patient reassessed on 10/10, and he does exhibit resolution of the majority of hi s symptoms; no unilateral deficits appreciated; still exhibits a very mild left- sided facial droop, but his speech is improved, and his thought processes are all clear/understandable Will plan to hold additional aspirin at this time to allow for potential blood patch early next week # ? Adverse drug reaction Patient does have an adverse drug reaction to oxycodone, which was given in the morning prior to stroke alert. Granddaughter says this leads to auditory and visual hallucinations. Yet to be determined if this contributed to patient's garbled speech the morning of stroke alert. However, it would not explain patient's left-sided facial droop. At any rate, oxycodone has been discontinued. #Falls | Right leg weakness | Right sided sciatica CT lumbar spine shows large inferiorly extruded disc fragment eccentric to the right at L3-L4 which impinges on the transiting right-sided nerve roots MRI reviewed Orthopedics on board, s/p right L3-L4 discectomy 10/05/24 PT/OT orders on hold until cleared by orthopedics Pain control with gabapentin and Tylenol, oxycodone, and Dilaudid PRN Per Ortho, patient continues to have clear drainage from incision site Aspirin held for potential blood patch early next week Fall precautions #Leukocytosis | low-grade fever (resolved) Mild; WBC count trend 12->11->8 One fever at 38.2 C (resolved) Clinically, patient denies fever, but does have a productive cough CXR with hyperinflation, but no consolidation to indicate pneumonia COVID, flu, RSV negative Continue empiric perioperative coverage with Ancef 2000mg IV q8h #HTN (resolved) Patient states that his SBP tends to run 130-140 Initial elevation due to pain Labetalol IV PRN #Hyponatremia (improving) Mild; Na 133 on 10/08 Continue to monitor with daily BMPs #BPH Continue Flomax Disposition: Continued stay on PCU telemetry DVT PPx: SCDs Code status: Full code, he did say that he does not want to be prolonged with artificial support Updated patient's granddaughter (Inga) over the phone on 10/09, as well as that bedside on 10/10. Granddaughter appreciative of conversation and updates. Admission and Anticipated Discharge Date Admission Date: October 03, 2024 Subjective Mr. Sierra reports he is doing well this morning. He slept last night. He is still having pain in the back of his head with movements and palpation. He denies any pain in his mid/lower back whenever he is sitting upright. Patient's granddaughter (Inga) is bedside this morning. She confirms that he had does have a oxycodone allergy; the last time hospitalist that he took it, he reported that he was in a "curry hole" being shot up. Yesterday, she reports he was "picking at things in the radu that were not there". She does report that he was easily re-directable at this time. Patient reports has been eating and drinking well this morning. No new complaints at this time. ROS: Patient endorses severe pain in the posterior scalp with palpation and movement, as well as neck pain (worse with rotation). Patient denies fever, chills, night sweats, chest pain, chest palpitations, pleuritic CP, cough, abdominal pain, N/V/D, changes in urinary habits, saddle anesthesia, deficits/weakness in the upper or lower extremities, or numbness or tingling in the arms or legs. Review of Systems Review of Systems: See HPI above Physical Exam Physical Exam: General: no acute distress; sitting upright in bed; granddaughter at bedside; pleasant affect; non-toxic appearing; well-nourished; cooperative; SpO2 92% on RA HEENT: normocephalic, atraumatic; no scleral icterus; PERRLA with EOMs intact; vision and hearing appear to be intact; patient demonstrates ability to lift eyebrows without unilateral deficits; improvement in left-sided facial droop, but still present when smiling; posterior scalp is TTP; patient demonstrates ability to protrude and wiggle tongue bilaterally without unilateral deficits Neck: supple; trachea midline; patient is able to shrug shoulders against resistance without eliciting pain or unilateral deficits; patient does endorse tenderness to palpation in the posterior cervical spine Skin: warm, dry without signs of tenting; no cyanosis; no rashes, bruising, lesions, or erythema noted CV: chest wall NTP; RRR; S1/S2 normal; no murmurs/rubs/gallops; pulses intact and symmetric at radial, DP, and PT Lungs: no acute respiratory distress; productive cough, with potential aspiration of sputum while lying flat; symmetrical chest wall expansion; bibasilar crackles in the upper lung canela bilaterally ABD: Soft, NTP; BS present; no rebound/guarding; no distention MSK: no tics or fasciculations; no edema noted in the LEs b/l, nonerythematous; 5/5 suit maker strength bilateral; patient demonstrates ability to wiggle toes bilaterally; patient is able to lift legs off the bed bilaterally with 4/5 strength; no unilateral deficits appreciated Neuro: A&Ox3; he is able to name the day of the week; garbled speech; mild left- sided facial droop; patient report sensation is intact and symmetric in the upper extremities and lower extremities bilaterally Results & Data Results & Data Vital Signs (Past 12 Hours) Vital Signs Temp Pulse Pulse Resp BP Pulse Ox O2 Del Method 10/10/24 07:59 37.2 C 86 19 191/117 H 92 Room Air 08/30/25 03:44 186/106 H 10/10/24 03:43 36.7 C 96 H 18 198/108 H 96 Room Air 10/09/24 23:36 36.6 C 104 H 18 151/104 H 92 Room Air 10/09/24 22:15 103 H PG Care Time/CCT Total # of Minutes Spent Total Time Spent with Patient: Total time spent is greater than 50% in coordination of care (as documented) at patient's floor/unit and/or counseling patient: Coding [place] [address] SUB INP/OBS CARE 3/50MIN Patient Type Established History Comprehensive Exam Comprehensive Medical Decision Making High Complexity Diagnoses Right leg weakness R29.898 Fall W19.XXXA Acute right-sided back pain with sciatica M54.41
[2024-10-10] MEDS: PANTOprazole 40 MG/10 ML SYR IV SCH (08:52)
[2024-10-10] MEDS: ATORVASTATIN 40 MG TAB PO SCH (08:52)
--- NOTE | 2024-10-10 08:56 | Orthopedic Progress Note ---
Date of Service October 10, 2024 Assessment & Plan (1) S/P lumbar discectomy: (2) Postoperative CSF leak: Plan Patient remains asymptomatic from possible csf leak cont abx while any drainage Aspirin has been held for possible blood patch this week with Dr. Medina Continue dressing changes, mobilize for short periods Discussed options with granddaughter, can continue with dressing changes to see if skin incision seals off drainage, other options include wound exploration and attempt to locate the CSF leak, or we can continue with blood patch when off aspirin for a few days. Decision made to observe wound and dressing changes, will consider blood patch as next step Subjective s/P discectomy, pain controlled, has some muscular pain posterior neck which he says improves when moving his neck, no headaches, no neuro deficits. Review of Systems All systems reviewed & are unremarkable except as noted in HPI & below. Physical Exam 5/5 strength bilateral LE dressing aturated with straw colored fluid no erythema Results & Data Results & Data Laboratory Results . Diagnostic Findings . PG Care Time/CCT Total # of Minutes Spent Total Time Spent with Patient: Total time spent is greater than 50% in coordination of care (as documented) at patient's floor/unit and/or counseling patient: Coding Level of Care Code 23919 Post Operative Follow-Up Diagnoses S/P lumbar discectomy Z98.890 Postoperative CSF leak G97.82; G96.00
[2024-10-10 09:15] LABS: Hemoglobin A1C 5.5 % (4.5-5.6)
--- NOTE | 2024-10-10 10:37 | CT Scan Report ---
Technique: Axial computed tomography images were obtained of the brain without intravenous contrast. Findings: There is diffuse cerebral atrophy, within expected limits for the patient's age. Areas of decreased attenuation are seen within the periventricular white matter, likely representing chronic small vessel ischemic disease. There is no definite sign of acute or old infarction. No intracranial hemorrhage is evident. No definite mass lesion is seen on this noncontrast examination. There is no midline shift or other form of herniation. No hydrocephalus is seen. No fracture is identified. The orbits and the visualized paranasal sinuses appear unremarkable. The mastoid air cells appear clear. Impression: 1. Cerebral atrophy and chronic small vessel ischemic disease 2. Otherwise unremarkable noncontrast CT of the brain Electronically signed by Bhargav Saez 10-10-2024 10:37 AM
[2024-10-10] MEDS: ACETAMINOPHEN 325 MG TAB PO PRN (12:19)
--- NOTE | 2024-10-10 16:24 | XCELERA ---
[id number] \\[id number]
[2024-10-11 06:30] LABS: Hematocrit (blood only) 44.4 % (42.0-52.0); Hemoglobin 15.3 g/dl (14.0-18.0); Immature Granulocytes # (auto) 0.07 K/uL (0.01-0.20); Immature Granulocytes % (auto) 0.8 %; Mean Corpuscular Hemoglobin 31.2 pg (25.0-34.0); Mean Corpuscular Volume 90.4 fL (80.0-100.0); Platelet Count 294 K/uL (130-400); RDW Standard Deviation 41.2 fL (36.4-46.3); Red Blood Count 4.91 M/uL (4.70-6.10); White Blood Count 8.77 K/ul (4.8-10.8)
[2024-10-11 06:57] LABS: Anion Gap 7.0 (3-11); Blood Urea Nitrogen 23.0 mg/dl (6-23); Calcium 8.5 mg/dl (8.6-10.3); Carbon Dioxide 25.0 mmol/L (21-32); Chloride 103.0 mmol/L (98-107); Creatinine Clr Calc Pharmacy 91.7 ml/min; Glucose 100.0 mg/dl (70-99(Fasting)); Potassium 3.8 mmol/L (3.5-5.1); Sodium 135.0 mmol/L (136-145)
--- NOTE | 2024-10-11 09:54 | Hospitalist Progress Note ---
"Date of Service October 11, 2024 Assessment & Plan (1) Right leg weakness: (2) Fall: (3) Acute right-sided back pain with sciatica: Plan This patient is a 78-year-old male who presented on 10/03 after sustaining a fall. # Strokelike symptoms | ?TIA vs. 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 Bryan Koenig) did recommended full dose of aspirin 324mg Aspirin 324 mg p.o. x 1 Patient passed dysphagia screen, okay to eat Speech therapy consult appreciated Initiate atorvastatin 40 mg QAM A1c WNL at 5.5 Fasting lipid panel WNL Now >24h out from event, no need for permissive HTN Patient received full dose of on 10/09 Additional aspirin held due to resolution of patient's strokelike and planned blood patch next week #Adverse drug reaction Patient does have an adverse drug reaction to oxycodone, which was given in the morning prior to stroke alert. Granddaughter says this leads to auditory and visual hallucinations. Yet to be determined if this contributed to patient's garbled speech the morning of stroke alert. However, it would not fully except patient's left-sided facial droop. At any rate, oxycodone has been discontinued. #Falls | Right leg weakness | Right sided sciatica CT lumbar spine shows large inferiorly extruded disc fragment eccentric to the right at L3-L4 which impinges on the transiting right-sided nerve roots MRI reviewed Orthopedics on board, s/p right L3-L4 discectomy 10/05/24 PT/OT orders on hold until cleared by orthopedics Pain control with gabapentin and Tylenol, oxycodone, and Dilaudid PRN Per Ortho, patient continues to have clear drainage from incision site Aspirin held for potential blood patch early next week Fall precautions ADDENDUM on 10/11: Due to continued drainage from spinal incision site, will plan for return to OR / wound exploration to assess for leak with Dr. Walton on 10/11 NPO prior to OR #Leukocytosis | low-grade fever (resolved) Mild; WBC count trend 12->11->8->8 One fever at 38.2 C (resolved) Clinically, patient denies fever, but does have a productive cough CXR with hyperinflation, but no consolidation to indicate pneumonia COVID, flu, RSV negative Continue empiric perioperative coverage with Ancef 2000mg IV q8h #HTN (resolved) Patient states that his SBP tends to run 130-140 Initial elevation due to pain Labetalol IV PRN #Hyponatremia (improving) Mild; Na 133 on 10/08 Continue to monitor with daily BMPs #BPH Continue Flomax Disposition: Continued stay on PCU telemetry DVT PPx: SCDs Code status: Full code, he did say that he does not want to be prolonged with artificial support Updated patient's granddaughter (Inga) over the phone on 10/09, as well as that bedside on 10/10 and 10/11. Granddaughter appreciative of conversation and updates. Admission and Anticipated Discharge Date Admission Date: October 03, 2024 Subjective Mr. Sierra reports he is doing much better today compared to the day prior.. The severe posterior scalp pain that have been bugging him has largely resolved. He is still getting his day/night confused, but has no head pain at this time. Granddaughter at bedside reports no recurrent episodes of hallucinations; granddaughter also ports that his speech is much improved from the day prior, as well as his left-sided facial droop. Overall, he has no new complaints at this time. ROS: Patient denies fever, headache, changes in vision, photophobia, tinnitus, posterior scalp pain, neck pain, back pain surrounding the surgical site, chest pain, chest palpitations, pleuritic CP, cough, abdominal pain, N/V/D, or changes in urinary bowel habits. Review of Systems Review of Systems: See HPI above Physical Exam Physical Exam: General: no acute distress; sitting upright in bed; granddaughter at bedside; pleasant affect; non-toxic appearing; well-nourished; cooperative; SpO2 95% on RA HEENT: normocephalic, atraumatic; no scleral icterus; PERRLA with EOMs intact; vision and hearing appear to be intact; patient demonstrates ability to lift eyebrows without unilateral deficits; left facial droop is largely improved (resolved with smiling); posterior scalp is NTP; patient demonstrates ability to protrude and wiggle tongue bilaterally without unilateral deficits Neck: supple; trachea midline; patient is able to shrug shoulders against resistance without eliciting pain or unilateral deficits; patient does endorse tenderness to palpation in the posterior cervical spine Skin: warm, dry without signs of tenting; no cyanosis; no rashes, bruising, lesions, or erythema noted CV: chest wall NTP; RRR; S1/S2 normal; no murmurs/rubs/gallops; pulses intact and symmetric at radial, DP, and PT Lungs: no acute respiratory distress; symmetrical chest wall expansion; bi basilar crackles in the upper lung canela bilaterally ABD: Soft, NTP; BS present; no rebound/guarding; no distention MSK: no tics or fasciculations; no edema noted in the LEs b/l, nonerythematous; 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; patient demonstrates ability to wiggle toes bilaterally; patient is able to lift legs off the bed bilaterally with 4/5 strength; no unilateral deficits appreciated Neuro: A&Ox3; he is able to name the day of the week; intermittent garbled speech (but much improved from prior); mild left-sided facial droop at rest that resolves with spine; patient report sensation is intact and symmetric in the upper extremities and lower extremities bilaterally Results & Data Results & Data Vital Signs (Past 12 Hours) Vital Signs Temp Pulse Pulse Resp BP Pulse Ox O2 Del Method 10/11/24 07:26 36.8 C 82 18 183/101 H 96 Room Air 10/11/24 02:53 36.7 C 71 18 167/92 H 93 Room Air 10/10/24 22:49 37 C 83 18 157/97 H 96 Room Air 10/10/24 22:05 81 PG Care Time/CCT Total # of Minutes Spent Total Time Spent with Patient: Total time spent is greater than 50% in coordination of care (as documented) at patient's floor/unit and/or counseling patient: Coding [place] [address] SUB INP/OBS CARE 3/50MIN Patient Type Established History Comprehensive Exam Comprehensive Medical Decision Making High Complexity Diagnoses Right leg weakness R29.898 Fall W19.XXXA Acute right-sided back pain with sciatica M54.41"
[2024-10-11] MEDS ORDERED: VANCOMYCIN CONSULT ACTIVE PRN (09:58)
[2024-10-11] MEDS ORDERED: ROCURONIUM BROMIDE 10 MG/ML 5 ML VIAL IV ONE ×2 (14:59)
[2024-10-11] MEDS ORDERED: PROPOFOL IV EMULSION 10 MG/ML 20 ML VIAL IV ONE (14:59)
[2024-10-11] MEDS ORDERED: PHENYLEPHRINE HCL 10 MG/ML VIAL ONE (15:03)
[2024-10-11] MEDS ORDERED: ARTIFICIAL TEARS OP OINT 3.5 GM TUBE ONE (15:08)
[2024-10-11] MEDS ORDERED: DexMEDEtomidine HCL IV 100 MCG/ML VIAL IV ONE (15:12)
[2024-10-11] MEDS ORDERED: DROPERIDOL 5 MG/2 ML VIAL IV PRN (15:46)
[2024-10-11] MEDS ORDERED: ATROPINE SULFATE 0.1 MG/ML 10ML SYR IV PRN (15:46)
--- NOTE | 2024-10-11 15:46 | Anesthesiology Consultation ---
Date of Service October 11, 2024 Assessment & Plan Chart Review Chart Review: Acceptable Risk for Surgery and Patient NOT seen in Pre Admission Testing Consults Requested none History Surgery Operation Date: 10/05/24 08:20 Proposed Procedures p Right L3-L4 Discectomy - Luis Alfredo Walton MD Operation Date: 10/11/24 07:15 Proposed Procedures p Lumbar Decompression - Luis Alfredo Walton MD Height/Weight Height: 5 ft 3 in Weight: 85.2 kg Allergies Allergy/AdvReac Type Severity Reaction Status Date / Time meperidine [From Demerol] Allergy Severe Hallucinati Verified 10/05/24 09:54 ng oxycodone AdvReac Intermediate Hallucinati Unverified 10/10/24 09:56 ng Medications Home Medications Medication Instructions Recorded Confirmed Last Taken multivitamin 1 tab PO QAM 05/20/23 10/03/24 10/02/24 pantoprazole 40 mg tablet,delayed 40 mg PO QAM 05/20/23 10/03/24 10/02/24 release vit C 250 mg-vit E 90 mg-zinc 40 1 tab PO BID 05/20/23 10/03/24 10/02/24 mg-copper 1 os-dpuxok-jaqiyy capsule (PreserVision AREDS-2) Active Medications Generic Name Dose Route Start Last Admin Trade Name Freq PRN Reason Stop Dose Admin Acetaminophen 650 mg 10/10/24 12:07 10/11/24 09:23 Acetaminophen 325 Mg Tab PO 11/09/24 12:06 650 mg Q4H PRN Administration Fever/Mild Pain (Pain 1,2,3) Atorvastatin Calcium 40 mg 10/10/24 09:00 10/11/24 09:01 Atorvastatin 40 Mg Tab PO 11/09/24 08:59 40 mg QAM ELIZA Administration Gabapentin 100 mg 10/03/24 21:00 10/10/24 20:38 Gabapentin 100 Mg Cap PO 11/02/24 20:59 100 mg HS ELIZA Administration Hydromorphone HCl 0.5 mg 10/05/24 13:58 10/07/24 20:40 Hydromorphone Inj 0.5 Mg/0.5 Ml Syr IV 10/19/24 13:57 0.5 mg Q3H PRN Administration MODERATE Pain(4,5,6)/Pre PT Hydromorphone HCl 1 mg 10/05/24 13:58 10/09/24 20:44 Hydromorphone Inj 1 Mg/Ml Syringe IV 10/19/24 13:57 1 mg Q3H PRN Administration SEVERE Pain (7,8,9,10) Cefazolin Sodium 2,000 mg in 15 mls @ 3.75 mls/min 10/07/24 12:30 10/11/24 12:57 Ancef 2000mg IV 10/14/24 12:29 3.75 mls/min Q8H ELIZA Administration Pantoprazole Sodium 40 mg in 10 mls @ 5 mls/min 10/10/24 09:00 10/11/24 09:00 Protonix IV 11/09/24 08:59 5 mls/min DAILY ELIZA Administration Senna/Docusate Sodium 2 tab 10/05/24 21:00 10/10/24 20:38 Docusate Sodium/Senna 50/8.6mg Tab PO 11/04/24 20:59 2 tab HS ELIZA Administration Tamsulosin HCl 0.4 mg 10/04/24 09:00 10/11/24 09:01 Tamsulosin Hcl 0.4 Mg Cap PO 11/03/24 08:59 0.4 mg QAM ELIZA Administration Tizanidine HCl 4 mg 10/05/24 13:58 10/08/24 23:10 Tizanidine Hcl 4 Mg Tablet PO 11/04/24 13:57 4 mg Q8H PRN Administration Muscle Spasm NPO Date Last Intake of Fluids: 10/11/24 Time Last Intake of Fluids: 07:00 Date Last Intake of Solids: 10/11/24 Time Last Intake of Solids: 06:00 Past Medical History Medical History Nausea and vomiting after administration of anesthetic agent Macular degeneration gets injections Fusion of spine lumbar Hiatal hernia GERD (gastroesophageal reflux disease) Past Surgical History Surgical History History of surgery on arm left Hx of foot surgery left History of tooth extraction History of cataract surgery right History of tonsillectomy Social History Smoking Status: Former smoker Do You Dip or Chew Tobacco: No Hx Alcohol Use: No Hx Substance Use: No substance use type: does not use Physical Exam Vital Signs Last Vital Signs Temp 36.4 C L 10/11/24 15:18 Pulse 90 10/11/24 15:18 Resp 18 10/11/24 15:18 BP 136/86 10/11/24 15:18 Pulse Ox 96 10/11/24 15:18 O2 Del Method Room Air 10/11/24 15:18 O2 Flow Rate 2 10/05/24 15:29 Testing Laboratory Results 10/11/24 05:32 10/11/24 05:32 PT 12.5 Seconds (9.0-12.0) H 10/09/24 07:41 INR 1.2 (0.9-1.1) H 10/09/24 07:41 APTT 31 Seconds (21-31) 10/09/24 07:41 Hemoglobin A1c 5.5 % (4.5-5.6) 10/10/24 06:58 Urine Color Yellow 10/03/24 11:36 Urine Appearance Clear (Clear) 10/03/24 11:36 Urine pH 5.5 (4.5-7.5) 10/03/24 11:36 Ur Specific Cope 1.012 (1.000-1.030) 10/03/24 11:36 Urine Protein Negative (Negative) 10/03/24 11:36 Urine Glucose (UA) Negative (Negative) 10/03/24 11:36 Urine Ketones 1+ (Negative) H 10/03/24 11:36 Urine Nitrite Negative (Negative) 10/03/24 11:36 Ur Leukocyte Esterase Trace (Negative) H 10/03/24 11:36 Urine WBC (Auto) 0-5 /hpf (0-5) 10/03/24 11:36 Urine RBC (Auto) 0-2 /hpf (0-2) 10/03/24 11:36 U Hyaline Cast (Auto) 0-2 /lpf (0-2) 10/03/24 11:36 U Epithel Cells (Auto) 0-2 /hpf (0-2) 10/03/24 11:36 Urine Bacteria (Auto) None Seen (None Seen) 10/03/24 11:36
--- NOTE | 2024-10-11 16:02 | Orthopedic Progress Note ---
Date of Service October 11, 2024 Assessment & Plan (1) Postoperative CSF leak: (2) Lumbar stenosis without neurogenic claudication: (3) Lumbar spondylosis: Plan Plan for repair in OR today. Discussed risks and benefits of of repair vs blood patch. Patient and granddaughter have elected to repair surgically today. Will plan for dural repair in OR today Subjective Patient seen this AM, he has continued drainage from his lumbar incision. Slow progress with Pt. Discussed options of blood patch vs surgical repair. Review of Systems All systems reviewed & are unremarkable except as noted in HPI & below. Physical Exam neuro intact Blateral LE, some quad and tib ant weakness SILT L2-S1 drainage from lumbar incision Results & Data Results & Data Laboratory Results . Diagnostic Findings . PG Care Time/CCT Total # of Minutes Spent Total Time Spent with Patient: Total time spent is greater than 50% in coordination of care (as documented) at patient's floor/unit and/or counseling patient: Coding Level of Care Code 14713 Post Operative Follow-Up Diagnoses Postoperative CSF leak G97.82; G96.00 Lumbar stenosis without neurogenic claudication M48.061 Lumbar spondylosis M47.816
[2024-10-11] MEDS ORDERED: ceFAZolin 330 MG/ML 1 GM VIAL ONE ×2 (16:26)
[2024-10-11] MEDS: TISSEEL FIBRIN SEALANT 10ML TOP ONE (17:24)
[2024-10-11] MEDS ORDERED: SUGAMMADEX SODIUM 200 MG/2 ML VIAL IV ONE (17:28)
[2024-10-11] MEDS: FLOSEAL HEMOSTATIC MATRIX 10ML TOP ONE (17:41)
[2024-10-11] MEDS: BUPIVACAINE/EPINEPHRINE 0.5% MPF 1:200,000 30 ML VIAL ONE (17:47)
--- NOTE | 2024-10-11 18:26 | Operative Report ---
PG Post Operative Report Pre & Post Diagnosis Operation Date: 10/11/24 07:15 Pre-Op Diagnosis: (1) Postoperative cerebrospinal fluid leak. (2) Lumbar stenosis without neurogenic claudication. (3) Lumbar spondylosis. Post-Op Diagnosis: (1) Postoperative cerebrospinal fluid leak. (2) Lumbar stenosis without neurogenic claudication. (3) Lumbar spondylosis. I identified the patient and participated in the time-out.: Yes Procedure Operation Date: 10/11/24 07:15 Actual Procedures L3-4 Laminectomy for Dural repair. - Luis Alfredo Walton MD Surgeon Luis Alfredo Walton MD [employer] OR Staff Estimated Blood Loss 50 Findings Consistent with Post-Op Diagnosis Specimens None Drains No Anesthesia Type General Complications none Disposition Disposition: Recovery Room Indications Patient had continued clear drainage from prior lumbar incision. He was relatively asymptomatic as far as headaches however given the continued clear drainage from his wound concern for ongoing dural leak. We discussed the possibility of blood patch, continued bed rest for operative exploration. After discussion of the risks and benefits patient and his granddaughter proceed with surgical repair. Description of Procedure Patient is brought in the operating room where general anesthesia was induced. He received IV antibiotics prior to incision, old david and sutures were removed from his lumbar incision and there was found to be poor wound healing. With obvious areas of defect. He was prepped and draped in the usual sterile fashion, timeout performed. All were in agreement and elected to proceed. 10 blade scalpel was used to create his prior incision, the old strata fix and Vicryl suture removed. Evidence of clear fluid was present above and below the fascia. At this point I completed subperiosteal dissection on the left side of the L3 lamina. Spinous process was removed with Leksell rongeur. The remaining lamina bone 3 was thinned with a high-speed bur and I completed a laminectomy at the L3 level. This exposed the ligamentum flavum which was removed complete the between L3 and L4. Prior area where dura seal was placed was identified and this was elevated. Approximately 5 cc of clear fluid consistent with CSF were identified. I explored the traversing nerve root and there was no evidence of injury to the dura on the L4 traversing nerve root. I completed a foraminotomies on the right at the L3-4 level to thoroughly decompress that space. On the lateral and ventral side of the dura area that was concerning and looked to have been the weekend, possibly already healed on its own over the last week was identified. Excellent hemostasis was obtained and the wound was irrigated. I then cut multiple pieces of DuraGen patch and placed these on the ventral surface as well as the lateral surface of the dura and they were tightly adherent. I have asked the anesthesiologist to perform multiple Valsalva maneuvers. There was no sign of CSF extravasation. Good dural turgor. I then added Floseal to the epidural veins to control bleeding in the area as well as his bipolar electrocautery. Once the area was completely dry and I again asked anesthesia to perform a Valsalva maneuver, again there was no evidence of CSF leak. Tisseal fibrin glue was then sprayed over the duragen patch to form a protective barrier. Floseal was then placed over the operative defect to control bleeding further. The fascia was closed tightly with 0 stratafix suture. I then closed the subcutaneous fat with Stratafix as well. Subcuticular layer was closed tightly with interrupted Vicryl sutures. I then used a 3-0 running Monocryl to close the skin incision. After the Monocryl I then placed a Prineo dressing with Dermabond to additionally reinforce the closure and ensure the watertight seal. The skin was cleansed, 4 x 4 dressing were applied and once the Prineo was dried and Medipore tape and ABD pad were applied over the sterile dressings. Postoperatively he will be kept flat for 24 hours, will slowly begin to sit him up tomorrow afternoon. Continue 24 hours perioperative antibiotics, SCDs for DVT prophylaxis. I attest to the content of the Intraoperative Record and any orders documented therein. Any exceptions are noted below.
--- NOTE | 2024-10-11 18:51 | Anesthesiology Progress Note ---
Date of Service October 11, 2024 Anesthesia Post Procedure Vital Signs Vital Signs: Temp Pulse Pulse Resp BP Pulse Ox O2 Del Method 10/11/24 15:18 36.4 C L 90 18 136/86 96 Room Air 10/11/24 13:02 89 10/11/24 11:20 37.3 C 98 H 18 105/70 95 Room Air 10/11/24 07:26 36.8 C 82 18 183/101 H 96 Room Air 10/11/24 02:53 36.7 C 71 18 167/92 H 93 Room Air 10/10/24 22:49 37 C 83 18 157/97 H 96 Room Air 10/10/24 22:05 81 10/10/24 19:46 36.6 C 88 20 157/91 H 93 Room Air Pain Intensity Right Leg: Pain Intensity: 6 Bilateral Lower Back: Pain Intensity: 3 Neck: Pain Intensity: 6 Transfer of Care Handoff Completed per policy Notes Mental Status: alert / awake / arousable Patient Amnestic to Procedure: Yes Nausea / Vomiting: adequately controlled Pain: adequately controlled Airway Patency, RR, SpO2: stable & adequate BP & HR: stable & adequate Hydration State: stable & adequate Anesthetic Complications: no major complications apparent
[2024-10-11] MEDS ORDERED: ACETAMINOPHEN 1,000 MG/100 ML VIAL IV PRN (19:37)
[2024-10-12] MEDS ORDERED: VANCOMYCIN HCL 1,250 MG in SODIUM CHLORIDE 0.9% 250 ML IV SCH (06:00)
[2024-10-12 06:20] LABS: Hematocrit (blood only) 41.6 % (42.0-52.0); Hemoglobin 14.6 g/dl (14.0-18.0); Immature Granulocytes # (auto) 0.09 K/uL (0.01-0.20); Immature Granulocytes % (auto) 0.8 %; Mean Corpuscular Hemoglobin 32.4 pg (25.0-34.0); Mean Corpuscular Volume 92.4 fL (80.0-100.0); Platelet Count 303 K/uL (130-400); RDW Standard Deviation 42.7 fL (36.4-46.3); Red Blood Count 4.50 M/uL (4.70-6.10); White Blood Count 11.20 K/ul (4.8-10.8)
[2024-10-12 06:37] LABS: Anion Gap 7.0 (3-11); Calcium 8.2 mg/dl (8.6-10.3); Carbon Dioxide 25.0 mmol/L (21-32); Chloride 103.0 mmol/L (98-107); Potassium 3.7 mmol/L (3.5-5.1); Sodium 135.0 mmol/L (136-145)
[2024-10-12 06:43] LABS: Blood Urea Nitrogen 24.0 mg/dl (6-23); Creatinine Clr Calc Pharmacy 75.1 ml/min; Glucose 103.0 mg/dl (70-99(Fasting))
[2024-10-12] MEDS: VANCOMYCIN HCL 1,250 MG in SODIUM CHLORIDE 0.9% 250 ML IV SCH (07:15)
[2024-10-12] MEDS: LIDOCAINE 2% LOCAL 50 ML VIAL ONE (07:16)
--- NOTE | 2024-10-12 11:21 | Orthopedic Progress Note ---
Date of Service October 12, 2024 Assessment & Plan (1) Postoperative CSF leak: (2) S/P lumbar discectomy: Plan S/P Dural tear discussed positioning with his nurse and explained that placing patient in reverse Trendelenburg increases the pressure on dural repair, please avoid this positioning until later today May sit up for dinner this evening around 4:30 pm which will be 24 hours if he tolerates this position and there is no drainage on bandage tomorrow morning will advance his activity Subjective Patient seen this morning, entered room and the patient is in reverse Trendelenburg position at approximately 30 degrees of elevation. Orders were placed for strict bedrest, head of bed flat for 24 hours after wound exploration and dural patch last evening however he was placed in this position earlier this morning apparently to give him pills. He does not report any headaches or leg pain. Review of Systems All systems reviewed & are unremarkable except as noted in HPI & below. Physical Exam Dressing examined, gauze at surgical site is completely dry this morning Neuro intact bilateral LE Results & Data Results & Data Laboratory Results . Diagnostic Findings . PG Care Time/CCT Total # of Minutes Spent Total Time Spent with Patient: Total time spent is greater than 50% in coordination of care (as documented) at patient's floor/unit and/or counseling patient: Coding Level of Care Code 83054 Post Operative Follow-Up Diagnoses Postoperative CSF leak G97.82; G96.00 S/P lumbar discectomy Z98.890
--- NOTE | 2024-10-12 17:33 | Hospitalist Progress Note ---
"Date of Service October 12, 2024 Assessment & Plan (1) Right leg weakness: (2) Fall: (3) Acute right-sided back pain with sciatica: Plan This patient is a 78-year-old male who presented on 10/03 after sustaining a fall. # Strokelike symptoms | ?TIA vs. 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 Bryan Koenig) did recommended full dose of aspirin 324mg Aspirin 324 mg p.o. x 1 Patient passed dysphagia screen, okay to eat Speech therapy consult appreciated Initiate atorvastatin 40 mg QAM A1c WNL at 5.5 Fasting lipid panel WNL Now >24h out from event, no need for permissive HTN Patient received full dose of on 10/09 Additional aspirin held due to resolution of patient's strokelike and planned blood patch next week #Adverse drug reaction Patient does have an adverse drug reaction to oxycodone, which was given in the morning prior to stroke alert. Granddaughter says this leads to auditory and visual hallucinations. Yet to be determined if this contributed to patient's garbled speech the morning of stroke alert. However, it would not fully except patient's left-sided facial droop. At any rate, oxycodone has been discontinued. #Falls | Right leg weakness | Right sided sciatica CT lumbar spine shows large inferiorly extruded disc fragment eccentric to the right at L3-L4 which impinges on the transiting right-sided nerve roots MRI reviewed Orthopedics on board, s/p right L3-L4 discectomy 10/05/24 PT/OT orders on hold until cleared by orthopedics Pain control with gabapentin and Tylenol, oxycodone, and Dilaudid PRN Per Ortho, patient continues to have clear drainage from incision site Aspirin held for potential blood patch early next week Fall precautions OR on 10/11- s/p dural tear repair #Leukocytosis | low-grade fever (resolved) Mild; WBC count trend 12->11->8->8 One fever at 38.2 C (resolved) Clinically, patient denies fever, but does have a productive cough CXR with hyperinflation, but no consolidation to indicate pneumonia COVID, flu, RSV negative Continue empiric perioperative coverage with Ancef 2000mg IV q8h #HTN (resolved) Patient states that his SBP tends to run 130-140 Initial elevation due to pain Labetalol IV PRN #Hyponatremia (improving) Mild; Na 135 on 10/12 Continue to monitor with daily BMPs #BPH Continue Flomax Disposition: Continued stay on PCU telemetry DVT PPx: SCDs Code status: Full code, he did say that he does not want to be prolonged with artificial support Updated patient's granddaughter (Inga) over the phone on 10/09, as well as that bedside on 10/10 and 10/11. Granddaughter appreciative of conversation and updates. Updated pt's sister Suellen Collins. Admission and Anticipated Discharge Date Admission Date: October 03, 2024 Subjective Pt was taken back to OR yesterday Review of Systems Review of Systems: Comprehensive ROS completed and is otherwise negative. Physical Exam Physical Exam: Gen: no acute distress, lying in bed comfortable HEENT: NC/AT, MMM Lungs: nonlabored breathing, CTAB CVS: s1s2nl, RRR Abd: nl bowel sounds, soft, NT / ND : no dick Ext: no edema Neuro: AAOx3 Psych: calm, cooperative Results & Data Results & Data Vital Signs (Past 12 Hours) Vital Signs Temp Pulse Pulse Resp BP Pulse Ox O2 Del Method 10/12/24 16:20 36.7 C 78 18 150/72 H 92 Room Air 10/12/24 14:00 70 10/12/24 12:11 36.8 C 80 18 91/60 L 91 Room Air 10/12/24 07:55 37.2 C 75 18 166/91 H 95 Room Air 10/12/24 07:50 Room Air 10/12/24 05:48 75 PG Care Time/CCT Total # of Minutes Spent Total Time Spent with Patient: Total time spent is greater than 50% in coordination of care (as documented) at patient's floor/unit and/or counseling patient: Coding Level of Care Code 58737 SUB INP/OBS CARE 2/35MIN Diagnoses Right leg weakness R29.898 Fall W19.XXXA Acute right-sided back pain with sciatica M54.41"
[2024-10-13 07:51] LABS: Hematocrit (blood only) 40.6 % (42.0-52.0); Hemoglobin 13.9 g/dl (14.0-18.0); Mean Corpuscular Hemoglobin 30.9 pg (25.0-34.0); Mean Corpuscular Volume 90.2 fL (80.0-100.0); Platelet Count 320 K/uL (130-400); RDW Standard Deviation 40.8 fL (36.4-46.3); Red Blood Count 4.50 M/uL (4.70-6.10); White Blood Count 11.12 K/ul (4.8-10.8)
[2024-10-13 08:10] LABS: Anion Gap 6.0 (3-11); Blood Urea Nitrogen 18.0 mg/dl (6-23); Calcium 8.2 mg/dl (8.6-10.3); Carbon Dioxide 27.0 mmol/L (21-32); Chloride 101.0 mmol/L (98-107); Creatinine Clr Calc Pharmacy 86.4 ml/min; Glucose 129.0 mg/dl (70-99(Fasting)); Magnesium 2.0 mg/dl (1.7-2.4); Potassium 3.5 mmol/L (3.5-5.1); Sodium 134.0 mmol/L (136-145)
--- NOTE | 2024-10-13 08:20 | Orthopedic Progress Note ---
Date of Service October 13, 2024 Assessment & Plan (1) S/P lumbar discectomy: (2) Postoperative CSF leak: Plan Incision is c/d/i advance activity as tolerated Change dressing end of day, if still dry ok for dc from spine perspective OK for anticoagulation as needed Subjective Patient sat up last night, tolerated well, no headaches, no neck pain. Review of Systems All systems reviewed & are unremarkable except as noted in HPI & below. Physical Exam neuro intact B/L Le dressing c/d/i, incision checked, no erythema or drainage Results & Data Results & Data Laboratory Results . Diagnostic Findings . PG Care Time/CCT Total # of Minutes Spent Total Time Spent with Patient: Total time spent is greater than 50% in coordination of care (as documented) at patient's floor/unit and/or counseling patient: Coding Level of Care Code 64350 Post Operative Follow-Up Diagnoses S/P lumbar discectomy Z98.890 Postoperative CSF leak G97.82; G96.00
--- NOTE | 2024-10-13 15:19 | Hospitalist Progress Note ---
"Date of Service October 13, 2024 Assessment & Plan (1) Right leg weakness: (2) Fall: (3) Acute right-sided back pain with sciatica: Plan This patient is a 78-year-old male who presented on 10/03 after sustaining a fall. # Strokelike symptoms | ?TIA vs. 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 Bryan Koenig) did recommended full dose of aspirin 324mg Aspirin 324 mg p.o. x 1 Patient passed dysphagia screen, okay to eat Speech therapy consult appreciated Initiate atorvastatin 40 mg QAM A1c WNL at 5.5 Fasting lipid panel WNL Now >24h out from event, no need for permissive HTN Patient received full dose of on 10/09 Additional aspirin held due to resolution of patient's strokelike and planned blood patch next week #Adverse drug reaction Patient does have an adverse drug reaction to oxycodone, which was given in the morning prior to stroke alert. Granddaughter says this leads to auditory and visual hallucinations. Yet to be determined if this contributed to patient's garbled speech the morning of stroke alert. However, it would not fully except patient's left-sided facial droop. At any rate, oxycodone has been discontinued. #Falls | Right leg weakness | Right sided sciatica CT lumbar spine shows large inferiorly extruded disc fragment eccentric to the right at L3-L4 which impinges on the transiting right-sided nerve roots MRI reviewed Orthopedics on board, s/p right L3-L4 discectomy 10/05/24 PT/OT orders on hold until cleared by orthopedics Pain control with gabapentin and Tylenol, oxycodone, and Dilaudid PRN Per Ortho, patient continues to have clear drainage from incision site Aspirin held for potential blood patch early next week Fall precautions OR on 10/11- s/p dural tear repair, ortho cleared for activity as tolerated (10/13/24) #Leukocytosis | low-grade fever (resolved) Mild; WBC count trend 12->11->8->8 One fever at 38.2 C (resolved) Clinically, patient denies fever, but does have a productive cough CXR with hyperinflation, but no consolidation to indicate pneumonia COVID, flu, RSV negative Continue empiric perioperative coverage with Ancef 2000mg IV q8h, will be completed on 10/14/24 #HTN (resolved) Patient states that his SBP tends to run 130-140 Initial elevation due to pain Labetalol IV PRN #Hyponatremia (improving) Mild; Na 134 on 10/13 Continue to monitor with daily BMPs #BPH Continue Flomax Disposition: Continued stay on PCU telemetry DVT PPx: SCDs, cleared by ortho to initiate Lovenox subq for DVT ppx Code status: Full code, he did say that he does not want to be prolonged with artificial support Updated patient's granddaughter (Inga) over the phone on 10/09, as well as that bedside on 10/10 and 10/11. Granddaughter appreciative of conversation and updates. Updated pt's sister Suellen Collins. 10/12 Updated pt's granddaughter (Lanette) 10/13 Admission and Anticipated Discharge Date Admission Date: October 03, 2024 Subjective no acute events overnight Currently no new complaints Review of Systems Review of Systems: Comprehensive ROS completed and is otherwise negative. Physical Exam Physical Exam: Gen: no acute distress, lying in bed comfortable HEENT: NC/AT, MMM Lungs: nonlabored breathing, CTAB CVS: s1s2nl, RRR Abd: nl bowel sounds, soft, NT / ND : no dick Ext: no edema Neuro: AAOx3 Psych: calm, cooperative Results & Data Results & Data Vital Signs (Past 12 Hours) Vital Signs Temp Pulse Resp BP Pulse Ox O2 Del Method O2 Flow Rate 10/13/24 12:06 36.8 C 78 18 168/84 H 93 Nasal Cannula 2 10/13/24 09:00 Nasal Cannula 10/13/24 08:09 36.6 C 73 18 164/85 H 94 Room Air 10/13/24 04:00 75 165/78 H PG Care Time/CCT Total # of Minutes Spent Total Time Spent with Patient: Total time spent is greater than 50% in coordination of care (as documented) at patient's floor/unit and/or counseling patient: Coding Level of Care Code 49669 SUB INP/OBS CARE 235MIN Diagnoses Right leg weakness R29.898 Fall W19.XXXA Acute right-sided back pain with sciatica M54.41"
[2024-10-14] MEDS: ENOXAPARIN INJ 40 MG/0.4 ML SYR SQ SCH (08:28)
[2024-10-14 08:56] LABS: Hematocrit (blood only) 40.9 % (42.0-52.0); Hemoglobin 14.1 g/dl (14.0-18.0); Immature Granulocytes # (auto) 0.10 K/uL (0.01-0.20); Immature Granulocytes % (auto) 1.1 %; Mean Corpuscular Hemoglobin 31.0 pg (25.0-34.0); Mean Corpuscular Volume 89.9 fL (80.0-100.0); Platelet Count 375 K/uL (130-400); RDW Standard Deviation 40.6 fL (36.4-46.3); Red Blood Count 4.55 M/uL (4.70-6.10); White Blood Count 9.08 K/ul (4.8-10.8)
[2024-10-14 09:20] LABS: Anion Gap 7.0 (3-11); Blood Urea Nitrogen 17.0 mg/dl (6-23); Calcium 8.5 mg/dl (8.6-10.3); Carbon Dioxide 27.0 mmol/L (21-32); Chloride 99.0 mmol/L (98-107); Creatinine Clr Calc Pharmacy 96.2 ml/min; Glucose 112.0 mg/dl (70-99(Fasting)); Magnesium 2.1 mg/dl (1.7-2.4); Potassium 3.5 mmol/L (3.5-5.1); Sodium 133.0 mmol/L (136-145)
--- NOTE | 2024-10-14 10:22 | Orthopedic Progress Note ---
Date of Service October 14, 2024 Assessment & Plan (1) S/P lumbar discectomy: (2) Postoperative CSF leak: Plan * Continue Current Treatment * S/p L3-4 discectomy and subsequent dural repair * Dressing changed today, scant dried blood, no evidence of CSF leak * Dressing change PRN * May continue/advance with PT/OT * Weight bearing/activity status: As tolerated * Daily treatment: Physical Therapy/ Occupational Therapy per protocol * Pain control * DVT prophylaxis, ok to resume from ortho standpoint * Disposition: Rehab * Office/hospital f/u 2 weeks for progress check and staple/suture removal * Remainder care per primary team * Stable for discharge from ortho standpoint, further planning per primary team. Will follow peripherally Subjective .Active Problems: S/p 10/05 L3-4 discectomy, 10/11 L3-4 dural tear repair POD 3 78 y/o male s/p above procedures. Doing well overall, pain managed and improved function. Starting to work with PT/OT and is quite deconditioned. Denies fever/chills, chest pain/SOB, nausea/vomiting. Otherwise no complaints. Review of Systems All systems reviewed & are unremarkable except as noted in HPI & below. Physical Exam * General: Alert and oriented, no acute distress * Constitutional: well-developed, well-nourished. * Respiratory: Normal respiratory effort, no distress * Gastrointestinal: No tenderness to palpation, no rigidity or guarding. * Skin: No rash or lesion. * Neurologic: Grossly normal * Musculoskeletal: Surgical dressing CDI. Lumbar spine region without obvious deformity or overlying skin changes. Minimal tenderness of surgical region, otherwise no tenderness b/l buttock or LE. Lumbar flexion/extension and rotation ROM with minimal pain. AROM b/l hip flexion, knee flexion/extension, ankle flexion/extension intact. Sensation intact plantar/dorsal foot. Brisk capillary refill. Results & Data Results & Data Laboratory Results . Diagnostic Findings . PG Care Time/CCT Total # of Minutes Spent Total Time Spent with Patient: Total time spent is greater than 50% in coordination of care (as documented) at patient's floor/unit and/or counseling patient: Coding Level of Care Code 51314 Post Operative Follow-Up Diagnoses S/P lumbar discectomy Z98.890 Postoperative CSF leak G97.82; G96.00
--- NOTE | 2024-10-14 15:14 | Hospitalist Progress Note ---
"Date of Service October 14, 2024 Assessment & Plan (1) Right leg weakness: (2) Fall: (3) Acute right-sided back pain with sciatica: Plan This patient is a 78-year-old male who presented on 10/03 after sustaining a fall. # Strokelike symptoms | ?TIA vs. 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 Bryan Koenig) did recommended full dose of aspirin 324mg Aspirin 324 mg p.o. x 1 Patient passed dysphagia screen, okay to eat Speech therapy consult appreciated Initiate atorvastatin 40 mg QAM A1c WNL at 5.5 Fasting lipid panel WNL Now >24h out from event, no need for permissive HTN Patient received full dose of on 10/09 Additional aspirin held due to resolution of patient's strokelike and planned blood patch next week #Adverse drug reaction Patient does have an adverse drug reaction to oxycodone, which was given in the morning prior to stroke alert. Granddaughter says this leads to auditory and visual hallucinations. Yet to be determined if this contributed to patient's garbled speech the morning of stroke alert. However, it would not fully except patient's left-sided facial droop. At any rate, oxycodone has been discontinued. #Falls | Right leg weakness | Right sided sciatica CT lumbar spine shows large inferiorly extruded disc fragment eccentric to the right at L3-L4 which impinges on the transiting right-sided nerve roots MRI reviewed Orthopedics on board, s/p right L3-L4 discectomy 10/05/24 PT/OT orders on hold until cleared by orthopedics Pain control with gabapentin and Tylenol, oxycodone, and Dilaudid PRN Per Ortho, patient continues to have clear drainage from incision site Aspirin held for potential blood patch early next week Fall precautions OR on 10/11- s/p dural tear repair, ortho cleared for activity as tolerated (10/13/24), cleared for discharge (10/14/24), CM working on placement #Leukocytosis | low-grade fever (resolved) Mild; WBC count trend 12->11->8->8 One fever at 38.2 C (resolved) Clinically, patient denies fever, but does have a productive cough CXR with hyperinflation, but no consolidation to indicate pneumonia COVID, flu, RSV negative Continue empiric perioperative coverage with Ancef 2000mg IV q8h, completed on 10/14/24 #HTN (resolved) Patient states that his SBP tends to run 130-140 Initial elevation due to pain Labetalol IV PRN #Hyponatremia (improving) Mild; Na 134 on 10/13 Continue to monitor with daily BMPs #BPH Continue Flomax Disposition: Continued stay on PCU telemetry DVT PPx: SCDs, cleared by ortho to initiate Lovenox subq for DVT ppx Code status: Full code, he did say that he does not want to be prolonged with artificial support Updated patient's granddaughter (Inga) over the phone on 10/09, as well as that bedside on 10/10 and 10/11. Granddaughter appreciative of conversation and updates. Updated pt's sister Suellen Collins. 10/12 Updated pt's granddaughter (Lanette) 10/13 Admission and Anticipated Discharge Date Admission Date: October 03, 2024 Subjective no acute events overnight Currently no new complaints Review of Systems Review of Systems: Comprehensive ROS completed and is otherwise negative. Physical Exam Physical Exam: Gen: no acute distress, lying in bed comfortable HEENT: NC/AT, MMM Lungs: nonlabored breathing, CTAB CVS: s1s2nl, RRR Abd: nl bowel sounds, soft, NT / ND : no dick Ext: no edema Neuro: AAOx3 Psych: calm, cooperative Results & Data Results & Data Vital Signs (Past 12 Hours) Vital Signs Temp Pulse Pulse Resp BP Pulse Ox O2 Del Method 10/14/24 15:05 36.5 C 71 18 176/93 H 94 Room Air 10/14/24 13:57 69 10/14/24 11:01 36.6 C 71 18 142/77 H 94 Room Air 10/14/24 07:33 36.9 C 72 18 157/88 H 93 Room Air 10/14/24 07:30 70 10/14/24 03:45 37 C 70 18 173/94 H 93 Room Air PG Care Time/CCT Total # of Minutes Spent Total Time Spent with Patient: Total time spent is greater than 50% in coordination of care (as documented) at patient's floor/unit and/or counseling patient: Coding Level of Care Code 40182 SUB INP/OBS CARE 2/35MIN Diagnoses Right leg weakness R29.898 Fall W19.XXXA Acute right-sided back pain with sciatica M54.41"
--- NOTE | 2024-10-15 11:25 | Hospitalist Progress Note ---
"Date of Service October 15, 2024 Assessment & Plan (1) Right leg weakness: (2) Fall: (3) Acute right-sided back pain with sciatica: Plan This patient is a 78-year-old male who presented on 10/03 after sustaining a fall. # Strokelike symptoms | ?TIA vs. 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 Bryan Koenig) did recommended full dose of aspirin 324mg Aspirin 324 mg p.o. x 1 Patient passed dysphagia screen, okay to eat Speech therapy consult appreciated Initiate atorvastatin 40 mg QAM A1c WNL at 5.5 Fasting lipid panel WNL Now >24h out from event, no need for permissive HTN Patient received full dose of on 10/09 Additional aspirin held due to resolution of patient's strokelike and planned blood patch next week #Adverse drug reaction Patient does have an adverse drug reaction to oxycodone, which was given in the morning prior to stroke alert. Granddaughter says this leads to auditory and visual hallucinations. Yet to be determined if this contributed to patient's garbled speech the morning of stroke alert. However, it would not fully except patient's left-sided facial droop. At any rate, oxycodone has been discontinued. #Falls | Right leg weakness | Right sided sciatica CT lumbar spine shows large inferiorly extruded disc fragment eccentric to the right at L3-L4 which impinges on the transiting right-sided nerve roots MRI reviewed Orthopedics on board, s/p right L3-L4 discectomy 10/05/24 PT/OT orders on hold until cleared by orthopedics Pain control with gabapentin and Tylenol, oxycodone, and Dilaudid PRN Per Ortho, patient continues to have clear drainage from incision site Aspirin held for potential blood patch early next week Fall precautions OR on 10/11- s/p dural tear repair, ortho cleared for activity as tolerated (10/13/24), cleared for discharge (10/14/24), CM working on placement #Leukocytosis | low-grade fever (resolved) Mild; WBC count trend 12->11->8->8 One fever at 38.2 C (resolved) Clinically, patient denies fever, but does have a productive cough CXR with hyperinflation, but no consolidation to indicate pneumonia COVID, flu, RSV negative Continue empiric perioperative coverage with Ancef 2000mg IV q8h, completed on 10/14/24 #HTN Patient states that his SBP tends to run 130-140 BP had improved but now worsening again initiate pt on Amlodipine 5mg po daily #Hyponatremia (improving) Mild; Na 134 on 10/13 Continue to monitor with daily BMPs #BPH Continue Flomax Disposition: Continued stay on PCU telemetry, pending placement DVT PPx: SCDs, cleared by ortho to initiate Lovenox subq for DVT ppx Code status: Full code, he did say that he does not want to be prolonged with artificial support Updated patient's granddaughter (Inga) over the phone on 10/09, as well as that bedside on 10/10 and 10/11. Granddaughter appreciative of conversation and updates. Updated pt's sister Suellen Collins. 10/12 Updated pt's granddaughter (Lanette) 10/13 Admission and Anticipated Discharge Date Admission Date: October 03, 2024 Subjective no acute events overnight Currently no new complaints Review of Systems Review of Systems: Comprehensive ROS completed and is otherwise negative. Physical Exam Physical Exam: Gen: no acute distress, lying in bed comfortable HEENT: NC/AT, MMM Lungs: nonlabored breathing, CTAB CVS: s1s2nl, RRR Abd: nl bowel sounds, soft, NT / ND : no dick Ext: no edema Neuro: AAOx3 Psych: calm, cooperative Results & Data Results & Data Vital Signs (Past 12 Hours) Vital Signs Temp Pulse Resp BP Pulse Ox O2 Del Method 10/15/24 07:43 37.0 C 79 18 170/86 H 94 Room Air 10/15/24 05:00 167/69 H 10/15/24 03:47 36.8 C 73 18 180/78 H 94 Room Air PG Care Time/CCT Total # of Minutes Spent Total Time Spent with Patient: Total time spent is greater than 50% in coordination of care (as documented) at patient's floor/unit and/or counseling patient: Coding Level of Care Code 01887 SUB INP/OBS CARE 235MIN Diagnoses Right leg weakness R29.898 Fall W19.XXXA Acute right-sided back pain with sciatica M54.41"
[2024-10-16 06:09] LABS: Hematocrit (blood only) 38.4 % (42.0-52.0); Hemoglobin 13.8 g/dl (14.0-18.0); Mean Corpuscular Hemoglobin 31.7 pg (25.0-34.0); Mean Corpuscular Volume 88.1 fL (80.0-100.0); Platelet Count 402 K/uL (130-400); RDW Standard Deviation 37.7 fL (36.4-46.3); Red Blood Count 4.36 M/uL (4.70-6.10); White Blood Count 9.68 K/ul (4.8-10.8)
[2024-10-16 06:26] LABS: Anion Gap 8.0 (3-11); Blood Urea Nitrogen 13.0 mg/dl (6-23); Calcium 8.3 mg/dl (8.6-10.3); Carbon Dioxide 23.0 mmol/L (21-32); Chloride 101.0 mmol/L (98-107); Creatinine Clr Calc Pharmacy 91.0 ml/min; Glucose 103.0 mg/dl (70-99(Fasting)); Magnesium 1.9 mg/dl (1.7-2.4); Potassium 3.5 mmol/L (3.5-5.1); Sodium 132.0 mmol/L (136-145)
--- NOTE | 2024-10-16 14:47 | Hospitalist Progress Note ---
"Date of Service October 16, 2024 Assessment & Plan (1) Postoperative CSF leak: (2) S/P lumbar discectomy: (3) Lumbar stenosis without neurogenic claudication: (4) Stroke-like symptom: Plan This patient is a 78-year-old male who presented on 10/03 after sustaining a fall. # Strokelike symptoms | ?TIA vs. CVA CTA found 60-70% stenosis of proxiaml right ICA Occurred at approximately 0730AM 10/09 Not a thrombolytic candidate due to recent spinal surgery s/p permissive HTN Head CT revealed no acute intracranial hemorrhage, midline shift, or acute territorial infarct Did reveal a 2 mm metallic density foreign body in the left globe (MRI co ntraindicated) Repeat head CT on 10/10 revealed no acute changes from prior Given this finding, telestroke (Dr. Bryan Koenig) did recommended full dose of aspirin 324mg Aspirin 324 mg p.o. x 1 Patient passed dysphagia screen, okay to eat Initiate atorvastatin 40 mg QAM A1c WNL at 5.5, lipid panel WNL Additional aspirin held due to resolution of patient's strokelike and planned blood patch next week #Adverse drug reaction related to oxycodone, which was given in the morning prior to stroke alert. Granddaughter says this leads to auditory and visual hallucinations. Yet to be determined if this contributed to patient's garbled speech the morning of stroke alert. However, it would not fully except patient's left-sided facial droop. At any rate, oxycodone has been discontinued. #Falls | Right leg weakness | Right sided sciatica s/p right L3-L4 discectomy 10/05/2024 CT lumbar spine shows large inferiorly extruded disc fragment eccentric to the right at L3-L4 which impinges on the transiting right-sided nerve roots MRI reviewed PT/OT orders on hold until cleared by orthopedics Pain control with gabapentin and Tylenol, oxycodone, and Dilaudid PRN Per Ortho, patient continues to have clear drainage from incision site Aspirin held for potential blood patch early next week Fall precautions OR on 10/11- s/p dural tear repair, ortho cleared for activity as tolerated (10/13/24), cleared for discharge (10/14/24), CM working on placement #Leukocytosis | low-grade fever (resolved) Mild; WBC count trend 12->11->8->8 One fever at 38.2 C (resolved) Clinically, patient denies fever, but does have a productive cough CXR with hyperinflation, but no consolidation to indicate pneumonia COVID, flu, RSV negative Continue empiric perioperative coverage with Ancef 2000mg IV q8h, completed on 10/14/24 #HTN Patient states that his SBP tends to run 130-140 BP had improved but now worsening again initiate pt on Amlodipine 5mg po daily #Hyponatremia (improving) Mild; Na 134 on 10/13 #BPH Continue Flomax Disposition: Continued stay on PCU telemetry, pending placement insurance denied LTACH DVT PPx: SCDs, cleared by ortho to initiate Lovenox subq for DVT ppx Code status: Full code, he did say that he does not want to be prolonged with artificial support Admission and Anticipated Discharge Date Admission Date: October 03, 2024 Subjective he s/p permissive hypertension. aspirin being held given patient planned blood patch next week hyponatremia resolved. still has 7/10 back pain still need regular wound care spoke with medical billing clerk at [facility], they declined placement to LTACH discussed at [facility] about the complexity of medical care but they declined Physical Exam Physical Exam: General: no acute distress neuro: AAOx2; normal sensation Heart: normal s1; s2; RRR lung: CTA b/l; no wheezing; no rales abdomen: soft to touch; non-tender to palpation Results & Data Results & Data Vital Signs (Past 12 Hours) Vital Signs Temp Pulse Resp BP Pulse Ox O2 Del Method 10/16/24 10:57 36.6 C 101 H 18 138/84 93 Room Air 10/16/24 08:00 Room Air 10/16/24 07:51 36.3 C L 73 18 170/91 H 92 Room Air 10/16/24 04:14 36.9 C 77 18 162/85 H 95 Room Air Laboratory Results Laboratory Results - last 72 hr 10/14/24 10/16/24 07:48 05:42 WBC 9.08 9.68 RBC 4.55 L 4.36 L Hgb 14.1 13.8 L Hct 40.9 L 38.4 L MCV 89.9 88.1 MCH 31.0 31.7 MCHC 34.5 35.9 RDW Std Deviation 40.6 37.7 RDW Coeff of Todd 12.3 11.7 Plt Count 375 402 H MPV 8.5 L 8.1 L Immature Gran % (Auto) 1.1 Neut % (Auto) 68.0 Lymph % (Auto) 15.0 Fleming % (Auto) 10.5 Eos % (Auto) 4.5 Baso % (Auto) 0.9 Neut # (Auto) 6.18 Lymph # (Auto) 1.36 Fleming # (Auto) 0.95 H Eos # (Auto) 0.41 Baso # (Auto) 0.08 Immature Gran # (Auto) 0.10 Sodium 133 L 132 L Potassium 3.5 3.5 Chloride 99 101 Carbon Dioxide 27 23 Anion Gap 7 8 BUN 17 13 Creatinine 0.60 0.62 Est Cr Clr Drug Dosing 96.2 91.0 eGFR 98.20 97.23 BUN/Creatinine Ratio 28.3 H 21.0 H Glucose 112 H 103 H Calcium 8.5 L 8.3 L Phosphorus 2.2 L 2.5 Magnesium 2.1 1.9 Medications Administered Current Inpatient Medications Acetaminophen (Acetaminophen 325 Mg Tab) 650 mg PO Q4H PRN PRN Reason: Fever/Mild Pain (Pain 1,2,3) Stop: 11/09/24 12:06 Last Admin: 10/13/24 20:28 Dose: 650 mg Amlodipine Besylate (Amlodipine Besylate 5 Mg Tab) 5 mg PO [facility] Stop: 11/14/24 11:29 Last Admin: 10/16/24 09:16 Dose: 5 mg Aspirin (Aspirin 81 Mg Ectab) 81 mg PO [facility] Stop: 11/09/24 08:59 Atorvastatin Calcium (Atorvastatin 40 Mg Tab) 40 mg PO [facility] Stop: 11/09/24 08:59 Last Admin: 10/16/24 09:16 Dose: 40 mg Bisacodyl (Bisacodyl 10 Mg Supp) 10 mg ME DAILY PRN PRN Reason: Constipation Stop: 11/04/24 13:57 Enoxaparin Sodium (Enoxaparin Inj 40 Mg/0.4 Ml Syr) 40 mg SQ [facility] Stop: 11/13/24 08:59 Last Admin: 10/16/24 09:17 Dose: 40 mg Gabapentin (Gabapentin 100 Mg Cap) 100 mg PO [facility] Stop: 11/02/24 20:59 Last Admin: 10/15/24 20:12 Dose: 100 mg Hydromorphone HCl (Hydromorphone Inj 0.5 Mg/0.5 Ml Syr) 0.5 mg IV Q3H PRN PRN Reason: MODERATE Pain(4,5,6)/Pre PT Stop: 10/19/24 13:57 Last Admin: 10/16/24 02:56 Dose: 0.5 mg Hydromorphone HCl (Hydromorphone Inj 1 Mg/Ml Syringe) 1 mg IV Q3H PRN PRN Reason: SEVERE Pain (7,8,9,10) Stop: 10/19/24 13:57 Last Admin: 10/16/24 07:51 Dose: 1 mg Hydroxyzine HCl (Hydroxyzine Hcl 25 Mg Tab) 25 mg PO Q8H PRN PRN Reason: Anxiety Stop: 11/04/24 13:57 Labetalol HCl (Labetalol Hcl Iv 5 Mg/Ml 20ml) 5 mg IV Q2H PRN; Protocol PRN Reason: Sustained SBP >180 or DBP >100 Stop: 11/08/24 07:38 Magnesium Hydroxide (Magnesium Hydroxide Susp 30 Ml Udc) 30 ml PO Q24H PRN PRN Reason: Constipation Stop: 11/04/24 13:57 Metoclopramide HCl (Metoclopramide Hcl Inj 5 Mg/Ml 2 Ml Vial) 10 mg IV Q6H PRN PRN Reason: Nausea &/or Vomiting Stop: 11/04/24 13:57 Naloxone HCl (Naloxone Hcl 0.4 Mg/1 Ml Vial/Carp) 0.1 mg IV Q5M PRN PRN Reason: Oversedation/Resp depression Stop: 11/04/24 13:57 Ondansetron HCl (Ondansetron Inj 2 Mg/Ml 2 Ml Vial) 4 mg IV Q6H PRN PRN Reason: Nausea &/or Vomiting Stop: 11/04/24 13:57 Pantoprazole Sodium (Pantoprazole 40 Mg Tab) 40 mg PO DAILY ELIZA; Protocol Stop: 11/13/24 08:59 Last Admin: 10/16/24 09:17 Dose: 40 mg Senna/Docusate Sodium (Docusate Sodium/Senna 50/8.6mg Tab) 2 tab PO HS [facility] Stop: 11/04/24 20:59 Last Admin: 10/16/24 09:18 Dose: 2 tab Sodium Biphosphate/Sodium Phosphate (Sod Phosphate/Sod Biphosphate Enema 132 Ml Btl) 132 ml ME ONE PRN PRN Reason: Constipation Stop: 11/04/24 13:57 Tamsulosin HCl (Tamsulosin Hcl 0.4 Mg Cap) 0.4 mg PO QAM [facility] Stop: 11/03/24 08:59 Last Admin: 10/16/24 09:17 Dose: 0.4 mg Tizanidine HCl (Tizanidine Hcl 4 Mg Tablet) 4 mg PO Q8H PRN PRN Reason: Muscle Spasm Stop: 11/04/24 13:57 Last Admin: 10/14/24 20:15 Dose: 4 mg PG Care Time/CCT Total # of Minutes Spent Total Time Spent with Patient: Total time spent is greater than 50% in coordination of care (as documented) at patient's floor/unit and/or counseling patient: Coding Level of Care Code 91764 SUB INP/OBS CARE 2/35MIN Diagnoses Postoperative CSF leak G97.82; G96.00 S/P lumbar discectomy Z98.890 Lumbar stenosis without neurogenic claudication M48.061 Stroke-like symptom R29.90 Time Spent (min) 35"
--- NOTE | 2024-10-17 13:11 | Hospitalist Progress Note ---
"Date of Service October 17, 2024 Assessment & Plan (1) Postoperative CSF leak: (2) S/P lumbar discectomy: (3) Lumbar stenosis without neurogenic claudication: (4) Stroke-like symptom: Plan This patient is a 78-year-old male who presented on 10/03 after sustaining a fall. # Strokelike symptoms | ?TIA vs. CVA CTA found 60-70% stenosis of proxiaml right ICA Occurred at approximately 0730AM 10/09 Not a thrombolytic candidate due to recent spinal surgery s/p permissive HTN Head CT revealed no acute intracranial hemorrhage, midline shift, or acute territorial infarct Did reveal a 2 mm metallic density foreign body in the left globe (MRI co ntraindicated) Repeat head CT on 10/10 revealed no acute changes from prior Given this finding, telestroke (Dr. Bryan Koenig) did recommended full dose of aspirin 324mg Aspirin 324 mg p.o. x 1 Patient passed dysphagia screen, okay to eat Initiate atorvastatin 40 mg QAM A1c WNL at 5.5, lipid panel WNL Additional aspirin held due to resolution of patient's strokelike and planned blood patch next week delirium episode f/u on urine culture and ammonia deposition, insurance declined LTAC await placement to STR #Adverse drug reaction related to oxycodone, which was given in the morning prior to stroke alert. Granddaughter says this leads to auditory and visual hallucinations. Yet to be determined if this contributed to patient's garbled speech the morning of stroke alert. However, it would not fully except patient's left-sided facial droop. At any rate, oxycodone has been discontinued. #Falls | Right leg weakness | Right sided sciatica s/p right L3-L4 discectomy 10/05/2024 CT lumbar spine shows large inferiorly extruded disc fragment eccentric to the right at L3-L4 which impinges on the transiting right-sided nerve roots MRI reviewed PT/OT orders on hold until cleared by orthopedics Pain control with gabapentin and Tylenol, oxycodone, and Dilaudid PRN Per Ortho, patient continues to have clear drainage from incision site Aspirin held for potential blood patch early next week Fall precautions OR on 10/11- s/p dural tear repair, ortho cleared for activity as tolerated (10/13/24), cleared for discharge (10/14/24), CM working on placement #Leukocytosis | low-grade fever (resolved) Mild; WBC count trend 12->11->8->8 One fever at 38.2 C (resolved) Clinically, patient denies fever, but does have a productive cough CXR with hyperinflation, but no consolidation to indicate pneumonia COVID, flu, RSV negative Continue empiric perioperative coverage with Ancef 2000mg IV q8h, completed on 10/14/24 #HTN Patient states that his SBP tends to run 130-140 BP had improved but now worsening again initiate pt on Amlodipine 5mg po daily #Hyponatremia (improving) Mild; Na 134 on 10/13 #BPH Continue Flomax Disposition: Continued stay on PCU telemetry, pending placement insurance denied LTACH DVT PPx: SCDs, cleared by ortho to initiate Lovenox subq for DVT ppx Code status: Full code, he did say that he does not want to be prolonged with artificial support Admission and Anticipated Discharge Date Admission Date: October 03, 2024 Subjective daughter mentioned he was having delirium yesterday seeing family member and concerning ICE agent this morning, he did not passed delirium screening no worsening back pain, BP much improved insurance declined placement to LTACH potential dc to STR on Saturday if delirium resolved Physical Exam Physical Exam: VITALS: Reviewed. WEIGHT/BMI reviewed. GEN: Healthy appearing, well-developed, NAD. neuro: AAox2 slow mentation; disoriented -Head: NC/AT; -Eyes: PERRL, EOMI. No discharge or redn ess; -Mouth and throat: MMM. Normal gums, muc joi, palate,. Good dentition. NECK: Supple, with no masses. CV: RRR, no m/r/g. LUNGS: CTAB, no w/r/c. ABD: Soft, NT/ND, NBS, no masses or organomegaly. SKIN: Warm, well perfused. No skin rashes or abnormal lesions. MSK: No deformities, Normal gait; lumbar region covered by dressing; no discharge appreciated Results & Data Results & Data Vital Signs (Past 12 Hours) Vital Signs Temp Pulse Pulse Resp BP Pulse Ox O2 Del Method 10/17/24 12:42 36.7 C 94 H 18 113/78 95 Room Air 10/17/24 07:56 36.6 C 84 18 151/83 H 94 Room Air 10/17/24 07:50 80 10/17/24 03:07 36.9 C 76 19 173/88 H 94 Room Air Laboratory Results Laboratory Results - last 72 hr 10/16/24 05:42 WBC 9.68 RBC 4.36 L Hgb 13.8 L Hct 38.4 L MCV 88.1 MCH 31.7 MCHC 35.9 RDW Std Deviation 37.7 RDW Coeff of Otdd 11.7 Plt Count 402 H MPV 8.1 L Sodium 132 L Potassium 3.5 Chloride 101 Carbon Dioxide 23 Anion Gap 8 BUN 13 Creatinine 0.62 Est Cr Clr Drug Dosing 91.0 eGFR 97.23 BUN/Creatinine Ratio 21.0 H Glucose 103 H Calcium 8.3 L Phosphorus 2.5 Magnesium 1.9 Medications Administered Current Inpatient Medications Acetaminophen (Acetaminophen 325 Mg Tab) 650 mg PO Q4H PRN PRN Reason: Fever/Mild Pain (Pain 1,2,3) Stop: 11/09/24 12:06 Last Admin: 10/13/24 20:28 Dose: 650 mg Amlodipine Besylate (Amlodipine Besylate 5 Mg Tab) 5 mg PO [facility] Stop: 11/14/24 11:29 Last Admin: 10/17/24 08:41 Dose: 5 mg Aspirin (Aspirin 81 Mg Ectab) 81 mg PO [facility] Stop: 11/09/24 08:59 Atorvastatin Calcium (Atorvastatin 40 Mg Tab) 40 mg PO [facility] Stop: 11/09/24 08:59 Last Admin: 10/17/24 08:41 Dose: 40 mg Bisacodyl (Bisacodyl 10 Mg Supp) 10 mg MD DAILY PRN PRN Reason: Constipation Stop: 11/04/24 13:57 Enoxaparin Sodium (Enoxaparin Inj 40 Mg/0.4 Ml Syr) [facility] [place]: 11/13/24 08:59 Last Admin: 10/17/24 08:41 Dose: 40 mg Gabapentin (Gabapentin 100 Mg Cap) [address] [facility] Stop: 11/02/24 20:59 Last Admin: 10/16/24 19:59 Dose: 100 mg Hydromorphone HCl (Hydromorphone Inj 0.5 Mg/0.5 Ml Syr) 0.5 mg IV Q3H PRN PRN Reason: MODERATE Pain(4,5,6)/Pre PT Stop: 10/19/24 13:57 Last Admin: 10/17/24 04:20 Dose: 0.5 mg Hydromorphone HCl (Hydromorphone Inj 1 Mg/Ml Syringe) 1 mg IV Q3H PRN PRN Reason: SEVERE Pain (7,8,9,10) Stop: 10/19/24 13:57 Last Admin: 10/16/24 17:09 Dose: 1 mg Hydroxyzine HCl (Hydroxyzine Hcl 25 Mg Tab) 25 mg PO Q8H PRN PRN Reason: Anxiety Stop: 11/04/24 13:57 Labetalol HCl (Labetalol Hcl Iv 5 Mg/Ml 20ml) 5 mg IV Q2H PRN; Protocol PRN Reason: Sustained SBP >180 or DBP >100 Stop: 11/08/24 07:38 Magnesium Hydroxide (Magnesium Hydroxide Susp 30 Ml Udc) 30 ml PO Q24H PRN PRN Reason: Constipation Stop: 11/04/24 13:57 Metoclopramide HCl (Metoclopramide Hcl Inj 5 Mg/Ml 2 Ml Vial) 10 mg IV Q6H PRN PRN Reason: Nausea &/or Vomiting Stop: 11/04/24 13:57 Naloxone HCl (Naloxone Hcl 0.4 Mg/1 Ml Vial/Carp) 0.1 mg IV Q5M PRN PRN Reason: Oversedation/Resp depression Stop: 11/04/24 13:57 Ondansetron HCl (Ondansetron Inj 2 Mg/Ml 2 Ml Vial) 4 mg IV Q6H PRN PRN Reason: Nausea &/or Vomiting Stop: 11/04/24 13:57 Pantoprazole Sodium (Pantoprazole 40 Mg Tab) 40 mg PO DAILY ELIZA; Protocol Stop: 11/13/24 08:59 Last Admin: 10/17/24 08:41 Dose: 40 mg Senna/Docusate Sodium (Docusate Sodium/Senna 50/8.6mg Tab) 2 tab PO HS [facility] Stop: 11/04/24 20:59 Last Admin: 10/16/24 19:59 Dose: 2 tab Sodium Biphosphate/Sodium Phosphate (Sod Phosphate/Sod Biphosphate Enema 132 Ml Btl) 132 ml MD ONE PRN PRN Reason: Constipation Stop: 11/04/24 13:57 Tamsulosin HCl (Tamsulosin Hcl 0.4 Mg Cap) 0.4 mg PO QAM [facility] Stop: 11/03/24 08:59 Last Admin: 10/17/24 08:41 Dose: 0.4 mg Tizanidine HCl (Tizanidine Hcl 4 Mg Tablet) 4 mg PO Q8H PRN PRN Reason: Muscle Spasm Stop: 11/04/24 13:57 Last Admin: 10/14/24 20:15 Dose: 4 mg PG Care Time/CCT Total # of Minutes Spent Total Time Spent with Patient: Total time spent is greater than 50% in coordination of care (as documented) at patient's floor/unit and/or counseling patient: Coding Level of Care Code 77487 SUB INP/OBS CARE 2/35MIN Diagnoses Postoperative CSF leak G97.82; G96.00 S/P lumbar discectomy Z98.890 Lumbar stenosis without neurogenic claudication M48.061 Stroke-like symptom R29.90 Time Spent (min) 35"
[2024-10-18 08:35] LABS: Hematocrit (blood only) 42.9 % (42.0-52.0); Hemoglobin 14.7 g/dl (14.0-18.0); Mean Corpuscular Hemoglobin 30.4 pg (25.0-34.0); Mean Corpuscular Volume 88.6 fL (80.0-100.0); Platelet Count 525 K/uL (130-400); RDW Standard Deviation 38.9 fL (36.4-46.3); Red Blood Count 4.84 M/uL (4.70-6.10); White Blood Count 11.13 K/ul (4.8-10.8)
[2024-10-18 08:43] LABS: Anion Gap 9.0 (3-11); Bilirubin,Total 0.6 mg/dl (0.2-1.0); Calcium 8.7 mg/dl (8.6-10.3); Carbon Dioxide 26.0 mmol/L (21-32); Chloride 100.0 mmol/L (98-107); Potassium 3.5 mmol/L (3.5-5.1); Sodium 135.0 mmol/L (136-145)
[2024-10-18 08:49] LABS: Alanine Aminotransferase 29.0 U/L (7-52); Albumin Globulin Ratio 1.1 (0.9-2); Alkaline Phosphatase 70.0 U/L (34-104); Blood Urea Nitrogen 13.0 mg/dl (6-23); Creatinine Clr Calc Pharmacy 91.6 ml/min; Globulin 3.2 gm/dl (2.5-4.0); Glucose 115.0 mg/dl (70-99(Fasting)); Total Protein 6.6 gm/dl (6.0-8.3)
--- NOTE | 2024-10-18 14:21 | Hospitalist Progress Note ---
"Date of Service October 18, 2024 Assessment & Plan (1) Postoperative CSF leak: (2) S/P lumbar discectomy: (3) Lumbar stenosis without neurogenic claudication: (4) Stroke-like symptom: Plan This patient is a 78-year-old male who presented on 10/03 after sustaining a fall. # Strokelike symptoms | ?TIA vs. CVA CTA found 60-70% stenosis of proxiaml right ICA Occurred at approximately 0730AM 10/09 Not a thrombolytic candidate due to recent spinal surgery s/p permissive HTN Head CT revealed no acute intracranial hemorrhage, midline shift, or acute territorial infarct Did reveal a 2 mm metallic density foreign body in the left globe (MRI co ntraindicated) Repeat head CT on 10/10 revealed no acute changes from prior Given this finding, telestroke (Dr. Bryan Koenig) did recommended full dose of aspirin 324mg Aspirin 324 mg p.o. x 1 Patient passed dysphagia screen, okay to eat Initiate atorvastatin 40 mg QAM A1c WNL at 5.5, lipid panel WNL Additional aspirin held due to resolution of patient's strokelike and planned blood patch next week thrombocytosis platelet increased from 300--> 550 f/u on CT chest, PSA level, delirium episode f/u on urine culture and ammonia pain control added robaxin for low back pain deposition, insurance declined LTAC await placement to [facility] #Adverse drug reaction related to oxycodone, which was given in the morning prior to stroke alert. Granddaughter says this leads to auditory and visual hallucinations. Yet to be determined if this contributed to patient's garbled speech the morning of stroke alert. However, it would not fully except patient's left-sided facial droop. At any rate, oxycodone has been discontinued. #Falls | Right leg weakness | Right sided sciatica s/p right L3-L4 discectomy 10/05/2024 CT lumbar spine shows large inferiorly extruded disc fragment eccentric to the right at L3-L4 which impinges on the transiting right-sided nerve roots MRI reviewed PT/OT orders on hold until cleared by orthopedics Pain control with gabapentin and Tylenol, oxycodone, and Dilaudid PRN Per Ortho, patient continues to have clear drainage from incision site Aspirin held for potential blood patch early next week Fall precautions OR on 10/11- s/p dural tear repair, ortho cleared for activity as tolerated (10/13/24), cleared for discharge (10/14/24), CM working on placement #Leukocytosis | low-grade fever (resolved) Mild; WBC count trend 12->11->8->8 One fever at 38.2 C (resolved) Clinically, patient denies fever, but does have a productive cough CXR with hyperinflation, but no consolidation to indicate pneumonia COVID, flu, RSV negative Continue empiric perioperative coverage with Ancef 2000mg IV q8h, completed on 10/14/24 #HTN Patient states that his SBP tends to run 130-140 BP had improved but now worsening again initiate pt on Amlodipine 5mg po daily #Hyponatremia (improving) #BPH- Continue Flomax Disposition: Continued stay on PCU telemetry, pending placement insurance denied LTACH DVT PPx: SCDs, cleared by ortho to initiate Lovenox subq for DVT ppx Code status: Full code, he did say that he does not want to be prolonged with artificial support Admission and Anticipated Discharge Date Admission Date: October 03, 2024 Subjective delirium improved still need narcotic for low back pain, nursing noticed ongoing output from lumbar region will involved neurosurgery evaluation tomorrow granddaughter requested us to eval for LTACH ([facility]) thrombocytosis, he's need age appropriate cancer screening. check PSA and CT chest. Physical Exam Physical Exam: VITALS: Reviewed. WEIGHT/BMI reviewed. GEN: Healthy appearing, well-developed, NAD. -Head: NC/AT; -Mouth and throat: MMM. Normal gums, muc joi, palate,. Good dentition. NECK: Supple, with no masses. CV: RRR, no m/r/g. LUNGS: CTAB, no w/r/c. ABD: Soft, NT/ND, NBS, no masses or organomegaly. SKIN: Warm, well perfused. No skin rashes or abnormal lesions. MSK: low back covered by dressing; non-tender to palpation EXT: No clubbing, cyanosis, or edema. Results & Data Results & Data Vital Signs (Past 12 Hours) Vital Signs Temp Pulse Pulse Resp BP Pulse Ox O2 Del Method 10/18/24 11:38 36.5 C 78 16 109/71 92 Room Air 10/18/24 08:00 79 10/18/24 08:00 36.7 C 81 16 156/81 H 93 Room Air 10/18/24 03:04 36.4 C L 75 16 126/77 95 Room Air Laboratory Results Laboratory Results - last 72 hr 10/16/24 10/18/24 10/18/24 05:42 08:01 08:04 WBC 9.68 11.13 H RBC 4.36 L 4.84 Hgb 13.8 L 14.7 Hct 38.4 L 42.9 MCV 88.1 88.6 MCH 31.7 30.4 MCHC 35.9 34.3 RDW Std Deviation 37.7 38.9 RDW Coeff of Todd 11.7 12.1 Plt Count 402 H 525 H MPV 8.1 L 8.2 L Sodium 132 L 135 L Potassium 3.5 3.5 Chloride 101 100 Carbon Dioxide 23 26 Anion Gap 8 9 BUN 13 13 Creatinine 0.62 0.61 Est Cr Clr Drug Dosing 91.0 91.6 eGFR 97.23 97.71 BUN/Creatinine Ratio 21.0 H 21.3 H Glucose 103 H 115 H Calcium 8.3 L 8.7 Phosphorus 2.5 Magnesium 1.9 Total Bilirubin 0.6 AST 32 ALT 29 Alkaline Phosphatase 70 Ammonia 27.0 Total Protein 6.6 Albumin 3.4 Globulin 3.2 Albumin/Globulin Ratio 1.1 PG Care Time/CCT Total # of Minutes Spent Total Time Spent with Patient: Total time spent is greater than 50% in coordination of care (as documented) at patient's floor/unit and/or counseling patient: Coding Level of Care Code 47211 SUB INP/OBS CARE 2/35MIN Diagnoses Postoperative CSF leak G97.82; G96.00 S/P lumbar discectomy Z98.890 Lumbar stenosis without neurogenic claudication M48.061 Stroke-like symptom R29.90 Time Spent (min) 35"
--- NOTE | 2024-10-18 15:57 | Communication Note ---
Date of Service: October 18, 2024 at around 3:25pm, notified by nurse that patient appeared disoriented, remove his clothing on physical exam; no pronator drift; no facial droop; dick appeared cloudy, send for urine culture, blood culture, lactate, ammonia level empiric coverage with ceftriaxone granddaughter defer removing the dick until delirium resolved as there concern about risk of fall family updated several times throught the day
[2024-10-18] MEDS: SODIUM CHLORIDE 0.9% 500 ML IV ONE (16:17)
[2024-10-18 16:31] LABS: Hematocrit (blood only) 40.7 % (42.0-52.0); Hemoglobin 14.6 g/dl (14.0-18.0); Mean Corpuscular Hemoglobin 31.7 pg (25.0-34.0); Mean Corpuscular Volume 88.5 fL (80.0-100.0); Platelet Count 497 K/uL (130-400); RDW Standard Deviation 38.1 fL (36.4-46.3); Red Blood Count 4.60 M/uL (4.70-6.10); White Blood Count 11.84 K/ul (4.8-10.8)
[2024-10-18] MEDS: cefTRIAXone SODIUM 2,000 MG/50 ML BAG IV STA (16:50)
[2024-10-18 16:53] LABS: Alanine Aminotransferase 31.0 U/L (7-52); Albumin Globulin Ratio 1.1 (0.9-2); Alkaline Phosphatase 68.0 U/L (34-104); Anion Gap 10.0 (3-11); Bilirubin,Total 0.6 mg/dl (0.2-1.0); Blood Urea Nitrogen 16.0 mg/dl (6-23); Calcium 8.6 mg/dl (8.6-10.3); Carbon Dioxide 23.0 mmol/L (21-32); Chloride 100.0 mmol/L (98-107); Creatinine Clr Calc Pharmacy 82.2 ml/min; Globulin 3.1 gm/dl (2.5-4.0); Glucose 112.0 mg/dl (70-99(Fasting)); Potassium 3.5 mmol/L (3.5-5.1); Sodium 133.0 mmol/L (136-145); Total Protein 6.6 gm/dl (6.0-8.3)
[2024-10-18 18:04] LABS: Appearance Urine Turbid (Clear); Glucose Urine UA Negative (Negative)
[2024-10-19 10:16] LABS: Hematocrit (blood only) 41.2 % (42.0-52.0); Hemoglobin 14.7 g/dl (14.0-18.0); Mean Corpuscular Hemoglobin 31.7 pg (25.0-34.0); Mean Corpuscular Volume 89.0 fL (80.0-100.0); Platelet Count 535 K/uL (130-400); RDW Standard Deviation 38.9 fL (36.4-46.3); Red Blood Count 4.63 M/uL (4.70-6.10); White Blood Count 11.72 K/ul (4.8-10.8)
[2024-10-19 10:28] LABS: Anion Gap 11.0 (3-11); Blood Urea Nitrogen 16.0 mg/dl (6-23); Calcium 8.6 mg/dl (8.6-10.3); Carbon Dioxide 23.0 mmol/L (21-32); Chloride 102.0 mmol/L (98-107); Creatinine Clr Calc Pharmacy 87.1 ml/min; Glucose 136.0 mg/dl (70-99(Fasting)); Potassium 3.6 mmol/L (3.5-5.1); Sodium 136.0 mmol/L (136-145)
[2024-10-19 10:39] LABS: Prostate SpecificAg Diagnostic 4.538 ng/ml (0-4)
[2024-10-19] MEDS: CEFEPIME 2000MG 2,000 MG/20 ML SYR IV SCH (15:41)
--- NOTE | 2024-10-19 16:46 | Orthopedic Progress Note ---
Date of Service October 19, 2024 Assessment & Plan (1) S/P lumbar discectomy: Plan concern for wound infection NPO midnight, hold AM lovenox I will examine him first thing in the morning, if continued drainage will likely need I&D Lumbar wound Subjective Contacted by Dr. Mooney for wound drainage, examined patient at bedside. His family is in room and they are concerned as he has been confused, +UTI, and they state for last 4 days there has been drainage again. He reports no leg pain, does have some back pain. Neuro intact. Review of Systems All systems reviewed & are unremarkable except as noted in HPI & below. Physical Exam Dressing removed, prineo dressing has been removed from wound and the incision has partially opened with fibrinous tissue in wound bed Drainage on dressing more concerning for infection than for CSF leak Results & Data Results & Data Laboratory Results . Diagnostic Findings . PG Care Time/CCT Total # of Minutes Spent Total Time Spent with Patient: Total time spent is greater than 50% in coordination of care (as documented) at patient's floor/unit and/or counseling patient: Coding Level of Care Code 40216 Post Operative Follow-Up Diagnoses S/P lumbar discectomy Z98.890
--- NOTE | 2024-10-19 16:47 | Hospitalist Progress Note ---
"Date of Service October 19, 2024 Assessment & Plan (1) Postoperative CSF leak: (2) S/P lumbar discectomy: (3) Lumbar stenosis without neurogenic claudication: (4) Stroke-like symptom: Plan This patient is a 78-year-old male who presented on 10/03 after sustaining a fall. inncresaed drainage from lumbar incision site spine surgery plan for OR tomorrow NPo after midnight. deposition dc 48-72 hours away # Strokelike symptoms | ?TIA vs. CVA CTA found 60-70% stenosis of proxiaml right ICA Occurred at approximately 0730AM 10/09 Not a thrombolytic candidate due to recent spinal surgery s/p permissive HTN Head CT revealed no acute intracranial hemorrhage, midline shift, or acute territorial infarct Did reveal a 2 mm metallic density foreign body in the left globe (MRI contraindicated) Repeat head CT on 10/10 revealed no acute changes from prior Given this finding, telestroke (Dr. Bryan Koenig) did recommended full dose of aspirin 324mg Aspirin 324 mg p.o. x 1 Patient passed dysphagia screen, okay to eat Initiate atorvastatin 40 mg QAM A1c WNL at 5.5, lipid panel WNL Additional aspirin held due to resolution of patient's strokelike and planned blood patch next week pseudomonas UTI, cefepime IV, monitor WBC level thrombocytosis platelet increased from 300--> 550 f/u on CT chest, PSA level, delirium episode f/u on urine culture and ammonia pain control added robaxin for low back pain deposition, insurance declined LTAC await placement to [facility], has acceptance at [facility] #Adverse drug reaction related to oxycodone, which was given in the morning prior to stroke alert. Granddaughter says this leads to auditory and visual hallucinations. Yet to be determined if this contributed to patient's garbled speech the morning of stroke alert. However, it would not fully except patient's left-sided facial droop. At any rate, oxycodone has been discontinued. #Falls | Right leg weakness | Right sided sciatica s/p right L3-L4 discectomy 10/05/2024 CT lumbar spine shows large inferiorly extruded disc fragment eccentric to the right at L3-L4 which impinges on the transiting right-sided nerve roots MRI reviewed PT/OT orders on hold until cleared by orthopedics Pain control with gabapentin and Tylenol, oxycodone, and Dilaudid PRN Per Ortho, patient continues to have clear drainage from incision site Aspirin held for potential blood patch early next week Fall precautions OR on 10/11- s/p dural tear repair, ortho cleared for activity as tolerated (10/13/24), cleared for discharge (10/14/24), CM working on placement #Leukocytosis | low-grade fever (resolved) Mild; WBC count trend 12->11->8->8 One fever at 38.2 C (resolved) Clinically, patient denies fever, but does have a productive cough CXR with hyperinflation, but no consolidation to indicate pneumonia COVID, flu, RSV negative Continue empiric perioperative coverage with Ancef 2000mg IV q8h, completed on 10/14/24 #HTN Patient states that his SBP tends to run 130-140 BP had improved but now worsening again initiate pt on Amlodipine 5mg po daily #Hyponatremia (improving) #BPH- Continue Flomax Disposition: Continued stay on PCU telemetry, pending placement insurance denied LTACH DVT PPx: SCDs, cleared by ortho to initiate Lovenox subq for DVT ppx Code status: Full code, he did say that he does not want to be prolonged with artificial support Admission and Anticipated Discharge Date Admission Date: October 03, 2024 Subjective urine culture grow pseudomonas spine surgery, Dr. Walton evaluate the patient plan for OR tomorrow NPO after midnight still has some delirium dc 48-72 hours away he need age approprate cancer screening Physical Exam Physical Exam: VITALS: Reviewed. WEIGHT/BMI reviewed. GEN: Healthy appearing, well-developed, NAD. neuro: AAOx2; 5/5 strength; no pronator drift; normal senation to soft touch -Head: NC/AT; -Eyes: PERRL, EOMI. No discharge or redn ess; -Mouth and throat: MMM. Normal gums, muc joi, palate,. Good dentition. NECK: Supple, with no masses. CV: RRR, no m/r/g. LUNGS: CTAB, no w/r/c. ABD: Soft, NT/ND, NBS, no masses or organomegaly. : N/A MSK: No deformities, Normal gait. EXT: No clubbing, cyanosis, or edema. NEURO: Ambulating with no limitations. Normal muscle strength and tone. No focal deficits. Results & Data Results & Data Vital Signs (Past 12 Hours) Vital Signs Temp Pulse Pulse Resp BP Pulse Ox O2 Del Method 10/19/24 15:47 37.0 C 96 H 16 107/68 92 Room Air 10/19/24 14:00 93 H 10/19/24 11:05 36.9 C 97 H 18 122/79 94 Room Air 10/19/24 08:00 78 10/19/24 07:53 36.2 C L 84 18 138/82 94 Room Air Laboratory Results Laboratory Results - last 72 hr 10/18/24 10/18/24 10/18/24 08:01 08:04 16:03 WBC 11.13 H RBC 4.84 Hgb 14.7 Hct 42.9 MCV 88.6 MCH 30.4 MCHC 34.3 RDW Std Deviation 38.9 RDW Coeff of Todd 12.1 Plt Count 525 H MPV 8.2 L Sodium 135 L 133 L Potassium 3.5 3.5 Chloride 100 100 Carbon Dioxide 26 23 Anion Gap 9 10 BUN 13 16 Creatinine 0.61 0.68 Est Cr Clr Drug Dosing 91.6 82.2 eGFR 97.71 94.55 BUN/Creatinine Ratio 21.3 H 23.5 H Glucose 115 H 112 H Calcium 8.7 8.6 Total Bilirubin 0.6 0.6 AST 32 34 ALT 29 31 Alkaline Phosphatase 70 68 Ammonia 27.0 29.0 Total Protein 6.6 6.6 Albumin 3.4 3.5 Globulin 3.2 3.1 Albumin/Globulin Ratio 1.1 1.1 Prostate Specific Ag Free PSA % Free PSA Urine Color Urine Appearance Urine pH Ur Specific Bradford Urine Protein Urine Glucose (UA) Urine Ketones Urine Blood Urine Nitrite Urine Bilirubin Urine Urobilinogen Ur Leukocyte Esterase Urine RBC Urine WBC Ur Epithelial Cells Urine Bacteria Urine Comment 10/18/24 10/18/24 10/19/24 16:12 16:50 09:49 WBC 11.84 H 11.72 H RBC 4.60 L 4.63 L Hgb 14.6 14.7 Hct 40.7 L 41.2 L MCV 88.5 89.0 MCH 31.7 31.7 MCHC 35.9 35.7 RDW Std Deviation 38.1 38.9 RDW Coeff of Todd 11.9 12.0 Plt Count 497 H 535 H MPV 8.5 L 8.3 L Sodium 136 Potassium 3.6 Chloride 102 Carbon Dioxide 23 Anion Gap 11 BUN 16 Creatinine 0.65 Est Cr Clr Drug Dosing 87.1 eGFR 95.85 BUN/Creatinine Ratio 24.6 H Glucose 136 H Calcium 8.6 Total Bilirubin AST ALT Alkaline Phosphatase Ammonia Total Protein Albumin Globulin Albumin/Globulin Ratio Prostate Specific Ag 4.538 H Free PSA 1.26 % Free PSA 27.8 Urine Color Yellow Urine Appearance Turbid A Urine pH 5.5 Ur Specific Bradford 1.023 Urine Protein 3+ H Urine Glucose (UA) Negative Urine Ketones 3+ H Urine Blood 3+ H Urine Nitrite Positive A Urine Bilirubin Negative Urine Urobilinogen Negative Ur Leukocyte Esterase 2+ H Urine RBC >20 H Urine WBC >50 H Ur Epithelial Cells 3-5 H Urine Bacteria 3+ H Urine Comment Medications Administered Current Inpatient Medications Acetaminophen (Acetaminophen 325 Mg Tab) 650 mg PO Q4H PRN PRN Reason: Fever/Mild Pain (Pain 1,2,3) Stop: 11/09/24 12:06 Last Admin: 10/13/24 20:28 Dose: 650 mg Amlodipine Besylate (Amlodipine Besylate 5 Mg Tab) 5 mg PO [facility] Stop: 11/14/24 11:29 Last Admin: 10/19/24 08:43 Dose: 5 mg Aspirin (Aspirin 81 Mg Ectab) 81 mg PO [facility] Stop: 11/09/24 08:59 Atorvastatin Calcium ([facility]atin 40 Mg Tab) [facility] Stop: 11/09/24 08:59 Last Admin: 10/19/24 08:44 Dose: 40 mg Bisacodyl (Bisacodyl 10 Mg Supp) 10 mg WA DAILY PRN PRN Reason: Constipation Stop: 11/04/24 13:57 Enoxaparin Sodium (Enoxaparin Inj 40 Mg/0.4 Ml Syr) 40 [facility] [place] Stop: 11/13/24 08:59 Last Admin: 10/19/24 08:45 Dose: 40 mg Gabapentin (Gabapentin 100 Mg Cap) 100 mg PO [facility] Stop: 11/02/24 20:59 Last Admin: 10/18/24 20:09 Dose: 100 mg Hydroxyzine HCl (Hydroxyzine Hcl 25 Mg Tab) 25 mg PO Q8H PRN PRN Reason: Anxiety Stop: 11/04/24 13:57 Cefepime HCl (Maxipime 2000mg) 2,000 mg in 20 mls @ 5 mls/min IV Q12H [facility]; Protocol Stop: 10/29/24 15:29 Last Admin: 10/19/24 15:41 Dose: 5 mls/min Labetalol HCl (Labetalol Hcl Iv 5 Mg/Ml 20ml) 5 mg IV Q2H PRN; Protocol PRN Reason: Sustained SBP >180 or DBP >100 Stop: 11/08/24 07:38 Magnesium Hydroxide (Magnesium Hydroxide Susp 30 Ml Udc) 30 ml PO Q24H PRN PRN Reason: Constipation Stop: 11/04/24 13:57 Metoclopramide HCl (Metoclopramide Hcl Inj 5 Mg/Ml 2 Ml Vial) 10 mg IV Q6H PRN PRN Reason: Nausea &/or Vomiting Stop: 11/04/24 13:57 Naloxone HCl (Naloxone Hcl 0.4 Mg/1 Ml Vial/Carp) 0.1 mg IV Q5M PRN PRN Reason: Oversedation/Resp depression Stop: 11/04/24 13:57 Ondansetron HCl (Ondansetron Inj 2 Mg/Ml 2 Ml Vial) 4 mg IV Q6H PRN PRN Reason: Nausea &/or Vomiting Stop: 11/04/24 13:57 Pantoprazole Sodium (Pantoprazole 40 Mg Tab) 40 mg PO DAILY [facility]; Protocol Stop: 11/13/24 08:59 Last Admin: 10/19/24 08:44 Dose: 40 mg Senna/Docusate Sodium (Docusate Sodium/Senna 50/8.6mg Tab) 2 tab PO HS [facility] Stop: 11/04/24 20:59 Last Admin: 10/18/24 20:09 Dose: Not Given Sodium Biphosphate/Sodium Phosphate (Sod Phosphate/Sod Biphosphate Enema 132 Ml Btl) 132 ml WA ONE PRN PRN Reason: Constipation Stop: 11/04/24 13:57 Tamsulosin HCl (Tamsulosin Hcl 0.4 Mg Cap) 0.4 mg PO QAM [facility] Stop: 11/03/24 08:59 Last Admin: 10/19/24 08:43 Dose: 0.4 mg Tizanidine HCl (Tizanidine Hcl 4 Mg Tablet) 4 mg PO Q8H PRN PRN Reason: Muscle Spasm Stop: 11/04/24 13:57 Last Admin: 10/14/24 20:15 Dose: 4 mg PG Care Time/CCT Total # of Minutes Spent Total Time Spent with Patient: Total time spent is greater than 50% in coordination of care (as documented) at patient's floor/unit and/or counseling patient: Coding Level of Care Code 35205 SUB INP/OBS CARE 2/35MIN Diagnoses Postoperative CSF leak G97.82; G96.00 S/P lumbar discectomy Z98.890 Lumbar stenosis without neurogenic claudication M48.061 Stroke-like symptom R29.90 Time Spent (min) 35"
[2024-10-20 06:30] LABS: Hematocrit (blood only) 39.3 % (42.0-52.0); Hemoglobin 13.8 g/dl (14.0-18.0); Mean Corpuscular Hemoglobin 31.5 pg (25.0-34.0); Mean Corpuscular Volume 89.7 fL (80.0-100.0); Platelet Count 531 K/uL (130-400); RDW Standard Deviation 40.0 fL (36.4-46.3); Red Blood Count 4.38 M/uL (4.70-6.10); White Blood Count 9.44 K/ul (4.8-10.8)
[2024-10-20 06:43] LABS: Anion Gap 5.0 (3-11); Blood Urea Nitrogen 17.0 mg/dl (6-23); Calcium 8.3 mg/dl (8.6-10.3); Carbon Dioxide 27.0 mmol/L (21-32); Chloride 104.0 mmol/L (98-107); Creatinine Clr Calc Pharmacy 79.0 ml/min; Glucose 109.0 mg/dl (70-99(Fasting)); Potassium 3.8 mmol/L (3.5-5.1); Sodium 136.0 mmol/L (136-145)
--- NOTE | 2024-10-20 08:10 | Hospitalist Progress Note ---
"Date of Service October 20, 2024 Assessment & Plan (1) Postoperative CSF leak: (2) S/P lumbar discectomy: (3) Lumbar stenosis without neurogenic claudication: (4) Stroke-like symptom: Plan This patient is a 78-year-old male who presented on 10/03 after sustaining a fall. increased drainage from lumbar incision site seen by spine surgeon on 10/20/ deferring OR today delirium, ongoing delirium still have disorientation,again, move patient to a window facing room # Strokelike symptoms | ?TIA vs. CVA CTA found 60-70% stenosis of proxiaml right ICA Occurred at approximately 0730AM 10/09 Not a thrombolytic candidate due to recent spinal surgery s/p permissive HTN Head CT revealed no acute intracranial hemorrhage, midline shift, or acute territorial infarct Did reveal a 2 mm metallic density foreign body in the left globe (MRI contrain dicated) Repeat head CT on 10/10 revealed no acute changes from prior Given this finding, telestroke (Dr. Bryan Koenig) did recommended full dose of aspirin 324mg Aspirin 324 mg p.o. x 1 Patient passed dysphagia screen, okay to eat Initiate atorvastatin 40 mg QAM A1c WNL at 5.5, lipid panel WNL Additional aspirin held due to resolution of patient's strokelike and planned blood patch next week pseudomonas UTI, cefepime IV, monitor WBC level thrombocytosis platelet increased from 300--> 550 f/u on CT chest, PSA level, pain control added robaxin for low back pain deposition, insurance declined LTAC await placement to [facility], has acceptance at [facility] #Adverse drug reaction related to oxycodone, which was given in the morning prior to stroke alert. Granddaughter says this leads to auditory and visual hallucinations. Yet to be determined if this contributed to patient's garbled speech the morning of stroke alert. However, it would not fully except patient's left-sided facial droop. At any rate, oxycodone has been discontinued. #Falls | Right leg weakness | Right sided sciatica s/p right L3-L4 discectomy 10/05/2024 CT lumbar spine shows large inferiorly extruded disc fragment eccentric to the right at L3-L4 which impinges on the transiting right-sided nerve roots MRI reviewed PT/OT orders on hold until cleared by orthopedics Pain control with gabapentin and Tylenol, oxycodone, and Dilaudid PRN Per Ortho, patient continues to have clear drainage from incision site Aspirin held for potential blood patch early next week Fall precautions OR on 10/11- s/p dural tear repair, ortho cleared for activity as tolerated (10/13/24), cleared for discharge (10/14/24), CM working on placement #Leukocytosis | low-grade fever (resolved) Mild; WBC count trend 12->11->8->8 One fever at 38.2 C (resolved) Clinically, patient denies fever, but does have a productive cough CXR with hyperinflation, but no consolidation to indicate pneumonia COVID, flu, RSV negative Continue empiric perioperative coverage with Ancef 2000mg IV q8h, completed on 10/14/24 #HTN Patient states that his SBP tends to run 130-140 BP had improved but now worsening again initiate pt on Amlodipine 5mg po daily #Hyponatremia (improving) #BPH- Continue Flomax Disposition: Continued stay on PCU telemetry, pending placement insurance denied LTACH DVT PPx: SCDs, cleared by ortho to initiate Lovenox subq for DVT ppx Code status: Full code, he did say that he does not want to be prolonged with artificial support Admission and Anticipated Discharge Date Admission Date: October 03, 2024 Subjective urine culture grow pseudomonas remove mayelin today DR. Walton deferring OR today; requested for ongiong PT still have delirium. communicated with granddaughter at bedside Physical Exam Physical Exam: VITALS: Reviewed. WEIGHT/BMI reviewed. GEN: Healthy appearing, well-developed, NAD. -Head: NC/AT; -Mouth and throat: MMM. Normal gums, muc joi, palate,. Good dentition. NECK: Supple, with no masses. CV: RRR, no m/r/g. LUNGS: CTAB, no w/r/c. ABD: Soft, NT/ND, NBS, no masses or organomegaly. MSK: + for spine surgery incision. : N/A SKIN: Warm, well perfused. No skin rashes or abnormal lesions. EXT: No clubbing, cyanosis, or edema. Neuro: AAOx2; following command; speaking in short sentence Results & Data Results & Data Vital Signs (Past 12 Hours) Vital Signs Temp Pulse Pulse Resp BP Pulse Ox O2 Del Method 10/20/24 07:28 67 10/20/24 04:05 36.4 C L 75 16 134/77 96 Room Air 10/19/24 23:09 81 10/19/24 22:02 36.7 C 83 18 111/70 95 Room Air Laboratory Results Laboratory Results - last 72 hr 10/18/24 10/18/24 10/18/24 08:01 08:04 16:03 WBC 11.13 H RBC 4.84 Hgb 14.7 Hct 42.9 MCV 88.6 MCH 30.4 MCHC 34.3 RDW Std Deviation 38.9 RDW Coeff of Todd 12.1 Plt Count 525 H MPV 8.2 L Sodium 135 L 133 L Potassium 3.5 3.5 Chloride 100 100 Carbon Dioxide 26 23 Anion Gap 9 10 BUN 13 16 Creatinine 0.61 0.68 Est Cr Clr Drug Dosing 91.6 82.2 eGFR 97.71 94.55 BUN/Creatinine Ratio 21.3 H 23.5 H Glucose 115 H 112 H Calcium 8.7 8.6 Total Bilirubin 0.6 0.6 AST 32 34 ALT 29 31 Alkaline Phosphatase 70 68 Ammonia 27.0 29.0 Total Protein 6.6 6.6 Albumin 3.4 3.5 Globulin 3.2 3.1 Albumin/Globulin Ratio 1.1 1.1 Prostate Specific Ag Free PSA % Free PSA Urine Color Urine Appearance Urine pH Ur Specific [place] Urine Protein Urine Glucose (UA) Urine Ketones Urine Blood Urine Nitrite Urine Bilirubin Urine Urobilinogen Ur Leukocyte Esterase Urine RBC Urine WBC Ur Epithelial Cells Urine Bacteria Urine Comment 10/18/24 10/18/24 10/19/24 16:12 16:50 09:49 WBC 11.84 H 11.72 H RBC 4.60 L 4.63 L Hgb 14.6 14.7 Hct 40.7 L 41.2 L MCV 88.5 89.0 MCH 31.7 31.7 MCHC 35.9 35.7 RDW Std Deviation 38.1 38.9 RDW Coeff of Todd 11.9 12.0 Plt Count 497 H 535 H MPV 8.5 L 8.3 L Sodium 136 Potassium 3.6 Chloride 102 Carbon Dioxide 23 Anion Gap 11 BUN 16 Creatinine 0.65 Est Cr Clr Drug Dosing 87.1 eGFR 95.85 BUN/Creatinine Ratio 24.6 H Glucose 136 H Calcium 8.6 Total Bilirubin AST ALT Alkaline Phosphatase Ammonia Total Protein Albumin Globulin Albumin/Globulin Ratio Prostate Specific Ag 4.538 H Free PSA 1.26 % Free PSA 27.8 Urine Color Yellow Urine Appearance Turbid A Urine pH 5.5 Ur Specific [place] 1.023 Urine Protein 3+ H Urine Glucose (UA) Negative Urine Ketones 3+ H Urine Blood 3+ H Urine Nitrite Positive A Urine Bilirubin Negative Urine Urobilinogen Negative Ur Leukocyte Esterase 2+ H Urine RBC >20 H Urine WBC >50 H Ur Epithelial Cells 3-5 H Urine Bacteria 3+ H Urine Comment 10/20/24 05:47 WBC 9.44 RBC 4.38 L Hgb 13.8 L Hct 39.3 L MCV 89.7 MCH 31.5 MCHC 35.1 RDW Std Deviation 40.0 RDW Coeff of Todd 12.1 Plt Count 531 H MPV 8.3 L Sodium 136 Potassium 3.8 Chloride 104 Carbon Dioxide 27 Anion Gap 5 BUN 17 Creatinine 0.71 Est Cr Clr Drug Dosing 79.0 eGFR 93.33 BUN/Creatinine Ratio 23.9 H Glucose 109 H Calcium 8.3 L Total Bilirubin AST ALT Alkaline Phosphatase Ammonia Total Protein Albumin Globulin Albumin/Globulin Ratio Prostate Specific Ag Free PSA % Free PSA Urine Color Urine Appearance Urine pH Ur Specific [place] Urine Protein Urine Glucose (UA) Urine Ketones Urine Blood Urine Nitrite Urine Bilirubin Urine Urobilinogen Ur Leukocyte Esterase Urine RBC Urine WBC Ur Epithelial Cells Urine Bacteria Urine Comment Medications Administered Current Inpatient Medications Acetaminophen (Acetaminophen 325 Mg Tab) 650 mg PO Q4H PRN PRN Reason: Fever/Mild Pain (Pain 1,2,3) Stop: 11/09/24 12:06 Last Admin: 10/19/24 21:49 Dose: 650 mg Amlodipine Besylate (Amlodipine Besylate 5 Mg Tab) 5 mg PO [facility] Stop: 11/14/24 11:29 Last Admin: 10/19/24 08:43 Dose: 5 mg Aspirin (Aspirin 81 Mg Ectab) 81 mg PO [facility] Stop: 11/09/24 08:59 Atorvastatin Calcium (Atorvastatin 40 Mg Tab) 40 mg PO [facility] Stop: 11/09/24 08:59 Last Admin: 10/19/24 08:44 Dose: 40 mg Bisacodyl (Bisacodyl 10 Mg Supp) 10 mg MN DAILY PRN PRN Reason: Constipation Stop: 11/04/24 13:57 Enoxaparin Sodium (Enoxaparin Inj 40 Mg/0.4 Ml Syr) 40 mg SQ QAM ELIZA Stop: 11/13/24 08:59 Last Admin: 10/19/24 08:45 Dose: 40 mg Gabapentin (Gabapentin 100 Mg Cap) 100 mg PO HS ELIZA Stop: 11/02/24 20:59 Last Admin: 10/19/24 20:08 Dose: 100 mg Hydroxyzine HCl (Hydroxyzine Hcl 25 Mg Tab) 25 mg PO Q8H PRN PRN Reason: Anxiety Stop: 11/04/24 13:57 Cefepime HCl (Maxipime 2000mg) 2,000 mg in 20 mls @ 5 mls/min IV Q12H ELIZA; Protocol Stop: 10/29/24 15:29 Last Admin: 10/20/24 03:05 Dose: 5 mls/min Labetalol HCl (Labetalol Hcl Iv 5 Mg/Ml 20ml) 5 mg IV Q2H PRN; Protocol PRN Reason: Sustained SBP >180 or DBP >100 Stop: 11/08/24 07:38 Magnesium Hydroxide (Magnesium Hydroxide Susp 30 Ml Udc) 30 ml PO Q24H PRN PRN Reason: Constipation Stop: 11/04/24 13:57 Metoclopramide HCl (Metoclopramide Hcl Inj 5 Mg/Ml 2 Ml Vial) 10 mg IV Q6H PRN PRN Reason: Nausea &/or Vomiting Stop: 11/04/24 13:57 Naloxone HCl (Naloxone Hcl 0.4 Mg/1 Ml Vial/Carp) 0.1 mg IV Q5M PRN PRN Reason: Oversedation/Resp depression Stop: 11/04/24 13:57 Ondansetron HCl (Ondansetron Inj 2 Mg/Ml 2 Ml Vial) 4 mg IV Q6H PRN PRN Reason: Nausea &/or Vomiting Stop: 11/04/24 13:57 Pantoprazole Sodium (Pantoprazole 40 Mg Tab) 40 mg PO DAILY [facility]; Protocol Stop: 11/13/24 08:59 Last Admin: 10/19/24 08:44 Dose: 40 mg Senna/Docusate Sodium (Docusate Sodium/Senna 50/8.6mg Tab) 2 tab PO HS ELIZA Stop: 11/04/24 20:59 Last Admin: 10/19/24 20:08 Dose: 2 tab Sodium Biphosphate/Sodium Phosphate (Sod Phosphate/Sod Biphosphate Enema 132 Ml Btl) 132 ml MN ONE PRN PRN Reason: Constipation Stop: 11/04/24 13:57 Tamsulosin HCl (Tamsulosin Hcl 0.4 Mg Cap) 0.4 mg PO QAM ELIZA Stop: 11/03/24 08:59 Last Admin: 10/19/24 08:43 Dose: 0.4 mg Tizanidine HCl (Tizanidine Hcl 4 Mg Tablet) 4 mg PO Q8H PRN PRN Reason: Muscle Spasm Stop: 11/04/24 13:57 Last Admin: 10/14/24 20:15 Dose: 4 mg PG Care Time/CCT Total # of Minutes Spent Total Time Spent with Patient: Total time spent is greater than 50% in coordination of care (as documented) at patient's floor/unit and/or counseling patient: Coding Level of Care Code 76445 SUB INP/OBS CARE 2/35MIN Diagnoses Postoperative CSF leak G97.82; G96.00 S/P lumbar discectomy Z98.890 Lumbar stenosis without neurogenic claudication M48.061 Stroke-like symptom R29.90 Time Spent (min) 35"
--- NOTE | 2024-10-20 11:11 | Orthopedic Progress Note ---
Date of Service October 20, 2024 Assessment & Plan (1) S/P lumbar discectomy: * Continue Current Treatment * Wound evaluated bedside with Sejal Walton and Paula who recommend continued observation, antibiotic therapy. * Recommend removal of Nickerson catheter * Stressed importance of mobilization with patient and family. * Weight bearing status: As tolerated * Daily treatment: Physical Therapy/ Occupational Therapy per protocol * Pain control * DVT prophylaxis per primary team * Disposition: TBD * Will continue to follow closely. Possible return to OR for washout and closure, not scheduled at this time Subjective Active Problems: S/p 10/05 L3-4 discectomy, 10/11 L3-4 laminectomy for dural tear repair, no active leak detected POD 9 78 y/o male s/p above procedures. Increased drainage from incision noted, evaluated by Dr Walton yesterday and noted that Prineo dressing had been removed and surgical incision is now dehiscing with superficial fibrinous tissue. Denies fever/chills, chest pain/SOB, nausea/vomiting. Has been out of bed to chair but per report limited activity otherwise with PT/OT. Has been on abx for UTI. Review of Systems All systems reviewed & are unremarkable except as noted in HPI & below. Physical Exam * General: Alert and oriented, no acute distress * Constitutional: well-developed, well-nourished. * Respiratory: Normal respiratory effort, no distress * Gastrointestinal: No tenderness to palpation, no rigidity or guarding. * Skin: No rash or lesion. Lumbar incision examined, fibrinous tissue at the incision bed, there appears to be wound dehiscence at the edges however no obvious opening to the fascia below. No obvious purulent drainage, 4 x 4 gauze does have signs of fibrinous exudate. * Neurologic: Grossly normal * Musculoskeletal: Surgical dressing removed. Distal 2/3 of incision have dehisced with exposed fibrinous tissue. Mild drainage on dressing. No outright purulence noted on dressing or at time of exam. Otherwise lumbar spine region without obvious deformity. Minimal tenderness of surgical region, otherwise no tenderness b/l buttock or LE. Lumbar flexion/extension and rotation ROM with minimal pain. AROM b/l hip flexion, knee flexion/extension, ankle fle xion/extension intact. Sensation intact plantar/dorsal foot. Brisk capillary refill. Results & Data Results & Data Laboratory Results . Diagnostic Findings . PG Care Time/CCT Total # of Minutes Spent Total Time Spent with Patient: Total time spent is greater than 50% in coordination of care (as documented) at patient's floor/unit and/or counseling patient: Supervising Physician Co-Signing Physician Notes The patient was evaluated along with NICOLE Emerson as well as my partner Dr. Mitchell this morning. Upon examination there was some drainage on the gauze of his lumbar wound and evidence of fibrinous tissue and dehiscence. There is no obvious purulent discharge, I explained to the patient's granddaughter at bedside that when I had seen the patient last week he was not having drainage and the Prineo dressing was intact. Unsure of when the Prineo dressing was removed and if this would to further opening of the wound. I explained I would be more concerned with wound infection at this point and CSF as upon return to the operating room there was no active CSF extravasation noted, the dura was intact to direct pressure from Tank elevator and Valsalva maneuver. A good amount of DuraGen and Tisseel was applied to the dura with the incision tightly closed with suture and Prineo. This morning my partner Dr. James and I had discussed antibiotic treatment to treat his UTI, his family is concerned as they felt he has experienced delirium. I had a discussion with his granddaughters that he has multiple factors that could be affecting delirium which include advanced age with prolonged hospital stay, UTI and elevated white count. At this point I do not see a obvious infection at his lumbar surgical site however concern for wound dehiscence from removal of the Prineo. I explained that I did not say this was definitely not a CSF leak, I explained that it was more concerning in appearance with wound dehiscence however operative exploration would be the final evaluation. I had offered the patient's granddaughter the option of returning to the operating room for wound exploration and cultures, continued antibiotic treatment or if they prefer they could have an independent evaluation from Dr. Mitchell one of our other spine surgeons and I would be happy to coordinate with him. At this time he is lucid and answering questions at the bedside, they do acknowledge after starting antibiotics for the UTI his mentation is improved. Nursing reports he has been up to ambulate multiple times today and has been more active than he has in the last several days. The family has decided they would like an evaluation from Dr. Mitchell, I have discussed with him and he will be by to evaluate the patient later today when he finishes in the operating room. Current recommendation would be for wound care, monitor on antibiotics and mobilization as much as possible. Concern with immediate return to the operating room would be that he has been on broad-spectrum antibiotics for UTI cultures would likely be negative. If he were to develop worsening infection, signs of abscess, neurologic deficits would certainly consider wound exploration however at this time I would think it best to continue with local wound care, monitor his recovery and treat urinary tract infection. Coding Level of Care Code 77165 Post Operative Follow-Up Diagnoses S/P lumbar discectomy Z98.890
[2024-10-21 08:02] LABS: Hematocrit (blood only) 40.0 % (42.0-52.0); Hemoglobin 13.5 g/dl (14.0-18.0); Mean Corpuscular Hemoglobin 30.1 pg (25.0-34.0); Mean Corpuscular Volume 89.1 fL (80.0-100.0); Platelet Count 513 K/uL (130-400); RDW Standard Deviation 39.6 fL (36.4-46.3); Red Blood Count 4.49 M/uL (4.70-6.10); White Blood Count 10.61 K/ul (4.8-10.8)
[2024-10-21 08:22] LABS: Alanine Aminotransferase 27.0 U/L (7-52); Albumin Globulin Ratio 1.1 (0.9-2); Alkaline Phosphatase 63.0 U/L (34-104); Anion Gap 7.0 (3-11); Bilirubin,Total 0.5 mg/dl (0.2-1.0); Blood Urea Nitrogen 18.0 mg/dl (6-23); Calcium 8.4 mg/dl (8.6-10.3); Carbon Dioxide 23.0 mmol/L (21-32); Chloride 105.0 mmol/L (98-107); Creatinine Clr Calc Pharmacy 84.5 ml/min; Globulin 2.8 gm/dl (2.5-4.0); Glucose 109.0 mg/dl (70-99(Fasting)); Potassium 4.0 mmol/L (3.5-5.1); Sodium 135.0 mmol/L (136-145); Total Protein 6.0 gm/dl (6.0-8.3)
--- NOTE | 2024-10-21 11:00 | Hospitalist Progress Note ---
"Date of Service October 21, 2024 Assessment & Plan (1) Postoperative CSF leak: (2) S/P lumbar discectomy: (3) Lumbar stenosis without neurogenic claudication: (4) Stroke-like symptom: Plan This patient is a 78-year-old male who presented on 10/03 after sustaining a fall. increased drainage from lumbar incision site seen by spine surgeon on 10/20/ deferring OR today delirium, ongoing delirium still have disorientation,again, move patient to a window facing room lumbar cellulitis, post-surgical infection noted he has right L3-L4 disectomy on 10/05 then L3-L4 dural tear repair on 10/11 he's currently on cefepime defer to neurosurgery about incision and drainage ID consulted. his grand-daughter, requested us to help rule out CSF infection # Strokelike symptoms | ?TIA vs. CVA CTA found 60-70% stenosis of proxiaml right ICA Occurred at approximately 0730AM 10/09 Not a thrombolytic candidate due to recent spinal surgery s/p permissive HTN Head CT revealed no acute intracranial hemorrhage, midline shift, or acute te rritorial infarct Did reveal a 2 mm metallic density foreign body in the left globe (MRI contraindicated) Repeat head CT on 10/10 revealed no acute changes from prior Given this finding, telestroke (Dr. Bryan Koenig) did recommended full dose of aspirin 324mg Aspirin 324 mg p.o. x 1 Patient passed dysphagia screen, okay to eat Initiate atorvastatin 40 mg QAM A1c WNL at 5.5, lipid panel WNL Additional aspirin held due to resolution of patient's strokelike and planned blood patch next week pseudomonas UTI, cefepime IV, monitor WBC level thrombocytosis platelet increased from 300--> 550 f/u on CT chest, PSA level, pain control added robaxin for low back pain deposition #Adverse drug reaction related to oxycodone, which was given in the morning prior to stroke alert. Granddaughter says this leads to auditory and visual hallucinations. Yet to be determined if this contributed to patient's garbled speech the morning of stroke alert. However, it would not fully except patient's left-sided facial droop. At any rate, oxycodone has been discontinued. #Falls | Right leg weakness | Right sided sciatica s/p right L3-L4 discectomy 10/05/[address] Agarwal s/p dural tear repair on 10/11 CT lumbar shows large inferiorly extruded disc fragment eccentric to the right at L3-L4 which impinges on the transiting right-sided nerve rootsMRI reviewed Pain control with and Tylenol, oxycodone, and Dilaudid PRN Per Ortho, patient continues to have clear drainage from incision site Aspirin held for potential blood patch early next week depression, started on remeron qHS on Oct 21, 2024 evening #HTN Patient states that his SBP tends to run 130-140 BP had improved but now worsening again initiate pt on Amlodipine 5mg po daily #Hyponatremia (improving) #BPH- Continue Flomax Disposition: Continued stay on PCU telemetry, pending placement insurance denied LTACH DVT PPx: SCDs, cleared by ortho to initiate Lovenox subq for DVT ppx Code status: Full code, he did say that he does not want to be prolonged with artificial support Admission and Anticipated Discharge Date Admission Date: October 03, 2024 Subjective urine culture grow pseudomonas, he's on cefepime s/p dick removed still has intermittent confusion ID consulted, per grand-daughter who works for [email or web address], they are interested in whether there is CSF infection. depression, lost his spouse this year, started remeron qHS grand-daughter Kailyn is agreeable for treatment Physical Exam Physical Exam: VITALS: Reviewed. WEIGHT/BMI reviewed. GEN: Healthy appearing, well-developed, NAD. -Head: NC/AT; -Eyes: PERRL, EOMI. No discharge or redn ess; -Nose: Normal nares. NECK: Supple, with no masses. CV: RRR, no m/r/g. LUNGS: CTAB, no w/r/c. ABD: Soft, NT/ND, NBS, no masses or organomegaly. : N/A MSK: lesion in the lumbar region EXT: No clubbing, cyanosis, or edema. NEURO: AAox2 Results & Data Results & Data Vital Signs (Past 12 Hours) Vital Signs Temp Pulse Pulse Resp BP Pulse Ox O2 Del Method 10/21/24 07:15 36.4 C L 72 20 120/66 98 Room Air 10/21/24 03:42 36.6 C 75 18 112/71 92 Room Air 10/20/24 23:36 36.4 C L 75 18 130/79 92 Room Air 10/20/24 23:06 83 Laboratory Results Laboratory Results - last 72 hr 10/18/24 10/18/24 10/18/24 16:03 16:12 16:50 WBC 11.84 H RBC 4.60 L Hgb 14.6 Hct 40.7 L MCV 88.5 MCH 31.7 MCHC 35.9 RDW Std Deviation 38.1 RDW Coeff of Todd 11.9 Plt Count 497 H MPV 8.5 L Sodium 133 L Potassium 3.5 Chloride 100 Carbon Dioxide 23 Anion Gap 10 BUN 16 Creatinine 0.68 Est Cr Clr Drug Dosing 82.2 eGFR 94.55 BUN/Creatinine Ratio 23.5 H Glucose 112 H Calcium 8.6 Total Bilirubin 0.6 AST 34 ALT 31 Alkaline Phosphatase 68 Ammonia 29.0 Total Protein 6.6 Albumin 3.5 Globulin 3.1 Albumin/Globulin Ratio 1.1 Prostate Specific Ag Free PSA % Free PSA Urine Color Yellow Urine Appearance Turbid A Urine pH 5.5 Ur Specific [place] 1.023 Urine Protein 3+ H Urine Glucose (UA) Negative Urine Ketones 3+ H Urine Blood 3+ H Urine Nitrite Positive A Urine Bilirubin Negative Urine Urobilinogen Negative Ur Leukocyte Esterase 2+ H Urine RBC >20 H Urine WBC >50 H Ur Epithelial Cells 3-5 H Urine Bacteria 3+ H Urine Comment 10/19/24 10/20/24 10/21/24 09:49 05:47 07:35 WBC 11.72 H 9.44 10.61 RBC 4.63 L 4.38 L 4.49 L Hgb 14.7 13.8 L 13.5 L Hct 41.2 L 39.3 L 40.0 L MCV 89.0 89.7 89.1 MCH 31.7 31.5 30.1 MCHC 35.7 35.1 33.8 RDW Std Deviation 38.9 40.0 39.6 RDW Coeff of Todd 12.0 12.1 12.2 Plt Count 535 H 531 H 513 H MPV 8.3 L 8.3 L 8.1 L Sodium 136 136 135 L Potassium 3.6 3.8 4.0 Chloride 102 104 105 Carbon Dioxide 23 27 23 Anion Gap 11 5 7 BUN 16 17 18 Creatinine 0.65 0.71 0.67 Est Cr Clr Drug Dosing 87.1 79.0 84.5 eGFR 95.85 93.33 94.98 BUN/Creatinine Ratio 24.6 H 23.9 H 26.9 H Glucose 136 H 109 H 109 H Calcium 8.6 8.3 L 8.4 L Total Bilirubin 0.5 AST 21 ALT 27 Alkaline Phosphatase 63 Ammonia Total Protein 6.0 Albumin 3.2 L Globulin 2.8 Albumin/Globulin Ratio 1.1 Prostate Specific Ag 4.538 H Free PSA 1.26 % Free PSA 27.8 Urine Color Urine Appearance Urine pH Ur Specific [place] Urine Protein Urine Glucose (UA) Urine Ketones Urine Blood Urine Nitrite Urine Bilirubin Urine Urobilinogen Ur Leukocyte Esterase Urine RBC Urine WBC Ur Epithelial Cells Urine Bacteria Urine Comment Medications Administered Current Inpatient Medications Acetaminophen (Acetaminophen 325 Mg Tab) 650 mg PO Q4H PRN PRN Reason: Fever/Mild Pain (Pain 1,2,3) Stop: 11/09/24 12:06 Last Admin: 10/19/24 21:49 Dose: 650 mg Amlodipine Besylate (Amlodipine Besylate 5 Mg Tab) 5 mg PO [facility] Stop: 11/14/24 11:29 Last Admin: 10/21/24 08:07 Dose: 5 mg Ascorbic Acid (Ascorbic Acid 500 Mg Tab) 500 mg PO [facility] Stop: 11/20/24 09:29 Aspirin (Aspirin 81 Mg Ectab) 81 mg PO [facility] Stop: 11/09/24 08:59 Atorvastatin Calcium (Atorvastatin 40 Mg Tab) 40 mg PO [facility] Stop: 11/09/24 08:59 Last Admin: 10/21/24 08:06 Dose: 40 mg Bisacodyl (Bisacodyl 10 Mg Supp) 10 mg [place] DAILY PRN PRN Reason: Constipation Stop: 11/04/24 13:57 Enoxaparin Sodium (Enoxaparin Inj 40 Mg/0.4 Ml Syr) 40 mg SQ [facility] Stop: 11/13/24 08:59 Last Admin: 10/19/24 08:45 Dose: 40 mg Gabapentin (Gabapentin 100 Mg Cap) 100 mg PO [facility] Stop: 11/02/24 20:59 Last Admin: 10/20/24 20:24 Dose: 100 mg Hydroxyzine HCl (Hydroxyzine Hcl 25 Mg Tab) 25 mg PO Q8H PRN PRN Reason: Anxiety Stop: 11/04/24 13:57 Cefepime HCl (Maxipime 2000mg) 2,000 mg in 20 mls @ 5 mls/min IV Q12H [facility]A; Protocol Stop: 10/29/24 15:29 Last Admin: 10/21/24 03:48 Dose: 5 mls/min Labetalol HCl (Labetalol Hcl Iv 5 Mg/Ml 20ml) 5 mg IV Q2H PRN; Protocol PRN Reason: Sustained SBP >180 or DBP >100 Stop: 11/08/24 07:38 Magnesium Hydroxide (Magnesium Hydroxide Susp 30 Ml Udc) 30 ml PO Q24H PRN PRN Reason: Constipation Stop: 11/04/24 13:57 Metoclopramide HCl (Metoclopramide Hcl Inj 5 Mg/Ml 2 Ml Vial) 10 mg IV Q6H PRN PRN Reason: Nausea &/or Vomiting Stop: 11/04/24 13:57 Mirtazapine (Mirtazapine Tab 15 Mg Tab) 15 mg PO HS [facility] Stop: 11/20/24 20:59 Multivitamins/Minerals (Cerovite Adv Formula Tab) 1 tab PO QAM [facility] Stop: 11/21/24 08:59 Naloxone HCl (Naloxone Hcl 0.4 Mg/1 Ml Vial/Carp) 0.1 mg IV Q5M PRN PRN Reason: Oversedation/Resp depression Stop: 11/04/24 13:57 Ondansetron HCl (Ondansetron Inj 2 Mg/Ml 2 Ml Vial) 4 mg IV Q6H PRN PRN Reason: Nausea &/or Vomiting Stop: 11/04/24 13:57 Pantoprazole Sodium (Pantoprazole 40 Mg Tab) 40 mg PO DAILY [facility]; Protocol Stop: 11/13/24 08:59 Last Admin: 10/21/24 08:07 Dose: 40 mg Senna/Docusate Sodium (Docusate Sodium/Senna 50/8.6mg Tab) 2 tab PO HS [facility]A Stop: 11/04/24 20:59 Last Admin: 10/20/24 20:24 Dose: 2 tab Sodium Biphosphate/Sodium Phosphate (Sod Phosphate/Sod Biphosphate Enema 132 Ml Btl) 132 ml [place] ONE PRN PRN Reason: Constipation Stop: 11/04/24 13:57 Tamsulosin HCl (Tamsulosin Hcl 0.4 Mg Cap) 0.4 mg PO QAM [facility] Stop: 11/03/24 08:59 Last Admin: 10/21/24 08:07 Dose: 0.4 mg Tizanidine HCl (Tizanidine Hcl 4 Mg Tablet) 4 mg PO Q8H PRN PRN Reason: Muscle Spasm Stop: 11/04/24 13:57 Last Admin: 10/14/24 20:15 Dose: 4 mg Zinc Sulfate (Zinc Sulfate 220 Mg Capsule) 220 mg PO QAM [facility] Stop: 11/21/24 08:59 PG Care Time/CCT Total # of Minutes Spent Total Time Spent with Patient: Total time spent is greater than 50% in coordination of care (as documented) at patient's floor/unit and/or counseling patient: Coding Level of Care Code 02425 SUB INP/OBS CARE 03/07MIN Diagnoses Postoperative CSF leak G97.82; G96.00 S/P lumbar discectomy Z98.890 Lumbar stenosis without neurogenic claudication M48.061 Stroke-like symptom R29.90 Time Spent (min) 25"
--- NOTE | 2024-10-21 11:16 | Orthopedic Progress Note ---
Date of Service October 21, 2024 Assessment & Plan (1) S/P lumbar discectomy: (2) Wound dehiscence: Plan Drainage appears to be slowing down, will plan to continue with treatment on IV antibiotics Regular dressing changes, I discussed with the patient's nurse today that Dr. Mitchell has also evaluated the patient and will be taking over care while I am out of town. Discussed the case with Dr. Mitchell who has examined the patient twice now, is familiar with his case history and I informed him that the family had requested a second opinion from him. Subjective Patient was seen and examined this morning, he reports that he has been ambulating up and down the halls with physical therapy today. Reports no leg pain or numbness, gait is unsteady and he reports he tires quickly however he is making daily progress with PT. He states he did not have any headaches or neck pain when ambulating. Remains on cefepime for his UTI. My partner Dr. Mitchell was by earlier this morning to evaluate him as well later. Dressing was changed at that time, minimal drainage. Review of Systems All systems reviewed & are unremarkable except as noted in HPI & below. Physical Exam Dressing removed, no active drainage from the incision, minimal serous drainage on 4 x 4 Dressing was reapplied. No neurologic deficits 5 out of 5 strength bilateral L2-S1 myotomes Results & Data Results & Data Laboratory Results . Diagnostic Findings . PG Care Time/CCT Total # of Minutes Spent Total Time Spent with Patient: Total time spent is greater than 50% in coordination of care (as documented) at patient's floor/unit and/or counseling patient: Coding Level of Care Code 28822 Post Operative Follow-Up Diagnoses S/P lumbar discectomy Z98.890 Wound dehiscence T81.30XA
[2024-10-21] MEDS: ASCORBIC ACID 500 MG TAB PO SCH (11:20)
--- NOTE | 2024-10-21 12:00 | Infectious Disease Consult ---
Date of Consultation October 21, 2024 Assessment & Plan (1) Wound dehiscence: (2) S/P lumbar discectomy: (3) Postoperative CSF leak: Plan This is a 78-year-old man with a past medical history of GERD,, nephrolithiasis status post stone treatment 06/12/2023, urethral stricture, BPH, who was been admitted to [facility] on 10/03/2024. He presented status post fall with complaints of pain down the right leg with weakness. CT spine showed large extruded disc fragment eccentric to the right at L3-L4 which impinged on the transiting right sided nerve root. His symptoms worsened and he was taken to the OR with orthopedics on 10/05/2024 for right L3-L4 discectomy for decompression of the nerve root to help prevent further neurologic decline. Per op report the right L3-4 facet joint was tightly adherent to the traversing L4 nerve root as it was displaced posteriorly by the disc herniation. The dura was quite compressed and appeared a bit thin. Course complicated by clear drainage from the incision on 10/06/2024. He developed leukocytosis with a WBC of 12.75 and a one time fever of T 38.2 on 10/07/2024. He continued to have clear leakage from the wound and there was concern for an ongoing dural leak. He was taken back to the OR on 10/11/2024 for L3-4 laminectomy dural repair. . On 10/09/2024 he had strokelike symptoms and was diagnosed with possible TIA. CT head revealed no acute intracranial hemorrhage, midline shift or acute territorial infarct. His course was also complicated by delirium. Because of delirium a urinalysis and blood culture was obtained on 10/18/2024. He remains afebrile and HDS. Urinalysis was positive for nitrites, blood, leukocyte esterase > 50 WBC and 3-5 epithelial cells. A dick was in place. He was started on ceftriaxone and then transitioned to cefepime once urine cultures finalized as pans Pseudomonas aeruginosa. Surgical site incision continued to have drainage and an area of dehiscence. here was concern for possible surgical site infection/cellulitis. Orthopedics following. No plans for wound washout at this time. Patient without any headaches or neck pain. No urinary symptoms documented. ID consulted for possible surgical site infection and Pseudomonas aeruginosa growing in urine culture. His leukocytosis has resolved. Plts worsening at 531. An E consult without video evaluation completed as video/camera is not working today Microbiology: 10/18 blood culture NGTD 10/18 Urine culture > 100 k Pseudomonas aeruginosa (pansensitive) Antibiotics Cefazolin 10/10 - 10/13 Ceftriaxone 10/18 Cefepime urrent # Lumbar stenosis, lumbar spondylosis, herniation of lumbar intervertebral disc with radiculopathy -s/p right L34 discectomy 10/05 #Postoperative CSF leak - s/p dural repair 10/11 # Lumbar surgical site wound dehiscence- ? SSTI #Asymptomatic pyuria and bacteriuria, ?from dick catheter #Delirium #Leukocytosis, resolved #Thrombocytosis #Fever on 10/07 ( once)resolved Discussion: Patient presents with LE weakness and pain-- found to have disc herniation at the lumbar spine. He underwent right L34 discectomy. Course complicated by one-time fever, thrombocytosis, leukocytosis. Diagnosed with a post operative CSF leak. He underwent dural repair. His course further complicated by delirium. Cognitive change prompted a urinalysis which showed pyuria but many epithelial cells ( ? from dick) . Urine culture grew Pseudomonas aeruginosa No documented urinary symptoms. He continued have drainage from his surgical site and there is concern for surgical site cellulitis. Incision site photo reviewed and appears to have cellulitis. Leukocytosis resolved. Asymptomatic pyuria/bacteriuria does not need to be treated in this case . Risk outweigh benefits. He he did not have kavon urinary symptoms. Urine culture appears contaminated with many epithelial cells. ( ? if collected from dick AMS is not usually a symptom for UTI. Additionally cefepime increases the risk of delirium and altered mental status. He has received 3 days of Pseudomonal coverage. Recommendations: -Discontinued cefepime day as per above -Started IV vancomycin per pharmacy protocol for possible skin and soft tissue infection at surgical site. Likely orgs of concern include skin jm ( staph, strep). Pseudomonas cellulitis is less likely -Ortho following and monitoring need for washout of wound. If Or, then send tissue- for aerobic, anaerobic and fungal culture Per review of Op report, no hardware noted. -Change or remove Dick if not done this admission - Monitor plts Recommendations communicated to hospitalist Thank you for this consult. ID will continue to follow. Lefty Gutierrez MD, MPH Infectious Disease [facility], [facility] Call [phone] with questions Consultation Information This patient recommendation is based on a telemedicine consult request which was completed asynchronously through chart review and information provided by the primary physician. The patient was not seen or examined today. The evaluation is consultative in nature and all patient care and treatment decisions can either be accepted or rejected by the patient's primary hospital-based treating physician using their own independent medical judgment for their patient. [employer] contact information: Please call [facility] Call Center . (Phone Number For Physician Use Only) Time Spent Reviewing Chart: 31+ minutes History of Present Illness Reason for Consultation: pseudomonas in urine culture possible infected lumbar site wound Requesting Physician: Abdiaziz Waddell DO Attending Physician: Abdiaziz Waddell DO History of Present Illness This is a 78-year-old man with a past medical history of GERD,, nephrolithiasis status post stone treatment 06/12/2023, urethral stricture, BPH, who was been admitted to [facility] on 10/03/2024. He presented status post fall with complaints of pain down the right leg with weakness. CT spine showed large extruded disc fragment eccentric to the right at L3-L4 which impinged on the transiting right sided nerve root. His symptoms worsened and he was taken to the OR with orthopedics on 10/05/2024 for right L3-L4 discectomy for decompression of the nerve root to help prevent further neurologic decline. Per op report the right L3-4 facet joint was tightly adherent to the traversing L4 nerve root as it was displaced posteriorly by the disc herniation. The dura was quite compressed and appeared a bit thin. Course complicated by clear drainage from the incision on 10/06/2024. He developed leukocytosis with a WBC of 12.75 and a one time fever of T 38.2 on 10/07/2024. He continued to have clear leakage from the wound and there was concern for an ongoing dural leak. He was taken back to the OR on 10/11/2024 for L3-4 laminectomy dural repair. . On 10/09/2024 he had strokelike symptoms and was diagnosed with possible TIA. CT head revealed no acute intracranial hemorrhage, midline shift or acute territorial infarct. His course was also complicated by delirium. Because of delirium a urinalysis and blood culture was obtained on 10/18/2024. He remains afebrile and HDS. Urinalysis was positive for nitrites, blood, leukocyte esterase > 50 WBC and 3-5 epithelial cells. A dick was in place. He was started on ceftriaxone and then transitioned to cefepime once urine cultures finalized as pans Pseudomonas aeruginosa. Surgical site incision continued to have drainage and an area of dehiscence. he re was concern for possible surgical site infection/cellulitis. Orthopedics following. No plans for wound washout at this time. Patient without any headaches or neck pain. No urinary symptoms documented. ID consulted for possible surgical site infection and Pseudomonas aeruginosa growing in urine culture. His leukocytosis has resolved. Plts worsening at 531. An E consult without video evaluation completed as video/camera is not working today Allergies Allergy/AdvReac Type Severity Reaction Status Date / Time meperidine [From Demerol] Allergy Severe Hallucinati Verified 10/05/24 09:54 ng oxycodone AdvReac Intermediate Hallucinati Unverified 10/10/24 09:56 ng Home Medications Medication Instructions Recorded Confirmed Type multivitamin 1 tab PO QAM 05/20/23 10/03/24 History pantoprazole 40 mg tablet,delayed 40 mg PO QAM 05/20/23 10/03/24 History release vit C 250 mg-vit E 90 mg-zinc 40 1 tab PO BID 05/20/23 10/03/24 History mg-copper 1 [id number] capsule (PreserVision AREDS-2) acetaminophen 325 mg tablet 650 mg (2 x 325 mg) PO Q4H PRN 10/21/24 Rx pain #40 tabs sennosides 8.6 mg-docusate sodium 2 tab PO HS #20 tabs 10/21/24 Rx 50 mg tablet (Senokot-S) tizanidine 4 mg tablet 4 mg PO Q8H PRN muscle spasticity 10/21/24 Rx #30 tabs Patient History Medical History Nausea and vomiting after administration of anesthetic agent Macular degeneration gets injections Fusion of spine lumbar Hiatal hernia GERD (gastroesophageal reflux disease) Surgical History History of surgery on arm left Hx of foot surgery left History of tooth extraction History of cataract surgery right History of tonsillectomy Social History Smoking Status: Former smoker Second Hand Exposure: No; Do You Dip or Chew Tobacco: No; Tobacco Cessation Education Requested by Patient: No Hx Alcohol Use: No Hx Substance Use: No Preferred Language: Georgian Communication Ability: Effective Retail Event Coordinator Required: No Beliefs That Will Affect Care: None Current Living Situation: Alone Other Information That Helps Us Care for You: No Feels Safe at Home: Yes Safety Concerns: Feels Safe At This Time Assistive Devices: Cane and Walker Results & Data Vital Signs (Past 12 Hours) Vital Signs Temp Pulse Resp BP Pulse Ox O2 Del Method 10/21/24 11:17 36.3 C L 85 20 109/72 95 Room Air 10/21/24 07:15 36.4 C L 72 20 120/66 98 Room Air 10/21/24 03:42 36.6 C 75 18 112/71 92 Room Air Laboratory Results Laboratory Results - last 48 hr 10/20/24 10/21/24 05:47 07:35 WBC 9.44 10.61 RBC 4.38 L 4.49 L Hgb 13.8 L 13.5 L Hct 39.3 L 40.0 L MCV 89.7 89.1 MCH 31.5 30.1 MCHC 35.1 33.8 RDW Std Deviation 40.0 39.6 RDW Coeff of Todd 12.1 12.2 Plt Count 531 H 513 H MPV 8.3 L 8.1 L Sodium 136 135 L Potassium 3.8 4.0 Chloride 104 105 Carbon Dioxide 27 23 Anion Gap 5 7 BUN 17 18 Creatinine 0.71 0.67 Est Cr Clr Drug Dosing 79.0 84.5 eGFR 93.33 94.98 BUN/Creatinine Ratio 23.9 H 26.9 H Glucose 109 H 109 H Calcium 8.3 L 8.4 L Total Bilirubin 0.5 AST 21 ALT 27 Alkaline Phosphatase 63 Total Protein 6.0 Albumin 3.2 L Globulin 2.8 Albumin/Globulin Ratio 1.1 Microbiology 10/18/24 16:03 Blood Aerobic Blood Culture - Preliminary No growth in Aerobic bottle after 48 hours. 10/18/24 16:03 Blood Anaerobic Blood Culture - Preliminary No growth in Anaerobic bottle after 48 hours. 10/18/24 16:12 Blood Aerobic Blood Culture - Preliminary No growth in Aerobic bottle after 48 hours. 10/18/24 16:12 Blood Anaerobic Blood Culture - Preliminary No growth in Anaerobic bottle after 48 hours. 10/18/24 16:50 Urine,Straight Cath Urine Culture - Final Pseudomonas aeruginosa Medications Administered Home Medications Medication Instructions Recorded Confirmed Last Taken multivitamin 1 tab PO QAM 05/20/23 10/03/24 10/02/24 pantoprazole 40 mg tablet,delayed 40 mg PO QAM 05/20/23 10/03/24 10/02/24 release vit C 250 mg-vit E 90 mg-zinc 40 1 tab PO BID 05/20/23 10/03/24 10/02/24 mg-copper 1 [id number]-zwoiov-gdogru capsule (PreserVision AREDS-2) Active Medications Generic Name Dose Route Start Last Admin Trade Name Freq PRN Reason Stop Dose Admin Acetaminophen 650 mg 10/10/24 12:07 10/19/24 21:49 Acetaminophen 325 Mg Tab PO 11/09/24 12:06 650 mg Q4H PRN Administration Fever/Mild Pain (Pain 1,2,3) Amlodipine Besylate 5 mg 10/15/24 11:30 10/21/24 08:07 Amlodipine Besylate 5 Mg Tab PO 11/14/24 11:29 5 mg QAM ELIZA Administration Ascorbic Acid 500 mg 10/21/24 09:30 10/21/24 11:20 Ascorbic Acid 500 Mg Tab PO 11/20/24 09:29 500 mg QAM ELIZA Administration Atorvastatin Calcium 40 mg 10/10/24 09:00 10/21/24 08:06 Atorvastatin 40 Mg Tab PO 11/09/24 08:59 40 mg QAM ELIZA Administration Enoxaparin Sodium 40 mg 10/14/24 09:00 10/19/24 08:45 Enoxaparin Inj 40 Mg/0.4 Ml Syr SQ 11/13/24 08:59 40 mg QAM ELIZA Administration Gabapentin 100 mg 10/03/24 21:00 10/20/24 20:24 Gabapentin 100 Mg Cap PO 11/02/24 20:59 100 mg HS ELIZA Administration Cefepime HCl 2,000 mg in 20 mls @ 5 mls/min 10/19/24 15:30 10/21/24 03:48 Maxipime 2000mg IV 10/29/24 15:29 5 mls/min Q12H ELIZA Administration Protocol Pantoprazole Sodium 40 mg 10/14/24 09:00 10/21/24 08:07 Pantoprazole 40 Mg Tab PO 11/13/24 08:59 40 mg DAILY ELIZA Administration Protocol Senna/Docusate Sodium 2 tab 10/05/24 21:00 10/20/24 20:24 Docusate Sodium/Senna 50/8.6mg Tab PO 11/04/24 20:59 2 tab HS ELIZA Administration Tamsulosin HCl 0.4 mg 10/04/24 09:00 10/21/24 08:07 Tamsulosin Hcl 0.4 Mg Cap PO 11/03/24 08:59 0.4 mg QAM ELIZA Administration Tizanidine HCl 4 mg 10/05/24 13:58 10/21/24 11:20 Tizanidine Hcl 4 Mg Tablet PO 11/04/24 13:57 4 mg Q8H PRN Administration Muscle Spasm
[2024-10-21] MEDS ORDERED: VANCOMYCIN CONSULT ACTIVE PRN (15:40)
[2024-10-21] MEDS: VANCOMYCIN HCL 1,500 MG in SODIUM CHLORIDE 0.9% 500 ML IV ONE (16:19)
[2024-10-21] MEDS: MIRTAZAPINE TAB 15 MG TAB PO SCH (20:22)
[2024-10-22] MEDS: VANCOMYCIN HCL / NSS 1,000 MG/270 ML BAG IV SCH (00:13)
[2024-10-22 07:22] LABS: Hematocrit (blood only) 39.6 % (42.0-52.0); Hemoglobin 13.3 g/dl (14.0-18.0); Mean Corpuscular Hemoglobin 30.0 pg (25.0-34.0); Mean Corpuscular Volume 89.4 fL (80.0-100.0); Platelet Count 513 K/uL (130-400); RDW Standard Deviation 40.1 fL (36.4-46.3); Red Blood Count 4.43 M/uL (4.70-6.10); White Blood Count 8.38 K/ul (4.8-10.8)
[2024-10-22 07:41] LABS: Alanine Aminotransferase 31.0 U/L (7-52); Albumin Globulin Ratio 1.2 (0.9-2); Alkaline Phosphatase 62.0 U/L (34-104); Anion Gap 6.0 (3-11); Bilirubin,Total 0.4 mg/dl (0.2-1.0); Blood Urea Nitrogen 16.0 mg/dl (6-23); Calcium 8.3 mg/dl (8.6-10.3); Carbon Dioxide 24.0 mmol/L (21-32); Chloride 107.0 mmol/L (98-107); Creatinine Clr Calc Pharmacy 87.5 ml/min; Globulin 2.7 gm/dl (2.5-4.0); Glucose 109.0 mg/dl (70-99(Fasting)); Potassium 3.7 mmol/L (3.5-5.1); Sodium 137.0 mmol/L (136-145); Total Protein 5.9 gm/dl (6.0-8.3)
[2024-10-22] MEDS: ZINC SULFATE 220 MG CAPSULE PO SCH (07:49)
[2024-10-22] MEDS: CEROVITE ADV FORMULA TAB PO SCH (07:50)
--- NOTE | 2024-10-22 08:47 | Orthopedic Progress Note ---
Date of Service October 22, 2024 Assessment & Plan (1) S/P lumbar discectomy: (2) Wound dehiscence: Plan Continue Current Treatment * Wound evaluated bedside with Dr Mitchell today who recommends continued observation, antibiotic therapy. * Dressing changed this morning. Continue daily dry dressing changes * Stressed importance of mobilization with patient and family. * ID consult appreciated, abx per recommendations * Weight bearing status: As tolerated * Daily treatment: Physical Therapy/ Occupational Therapy per protocol * Pain control * DVT prophylaxis per primary team * Disposition: rehab * Will continue to follow closely while hospitalized. Ultimately recommend transfer to rehab facility for continued mobilization with close office follow-up next week. Continued antibiotic suppression. Will evaluate wound at that time, no plan for OR currently. * * Patient seen and examined, plan as listed. Subjective Active Problems: S/p 10/05 L3-4 discectomy, 10/11 L3-4 laminectomy for dural tear repair, no active leak detected POD 11 78 y/o male s/p above procedures. Increased drainage from incision noted, evaluated by Dr Walton and Paula, surgical incision is now dehiscing with superficial fibrinous tissue. Exam consistent with superficial soft tissue infection, but no deep exposure noted. Denies fever/chills, chest pain/SOB, nausea/vomiting. Has been working harder with PT since our meeting with family earlier this week. ID evaluated for management of UTI and surgical site infection, abx changed to Vanco. Review of Systems All systems reviewed & are unremarkable except as noted in HPI & below. Physical Exam * General: Alert and oriented, no acute distress * Constitutional: well-developed, well-nourished. * Respiratory: Normal respiratory effort, no distress * Gastrointestinal: No tenderness to palpation, no rigidity or guarding. * Skin: No rash or lesion. Lumbar incision examined, fibrinous tissue at the incision bed, there appears to be wound dehiscence at the edges however no obvious opening to the fascia below. No obvious purulent drainage, 4 x 4 gauze does have signs of fibrinous exudate. * Neurologic: Grossly normal * Musculoskeletal: Surgical dressing removed. Distal 2/3 of incision have dehisced with exposed fibrinous tissue. Mild drainage on dressing. No outright purulence noted on dressing or at time of exam. Otherwise lumbar spine region without obvious deformity. Minimal tenderness of surgical region, otherwise no tenderness b/l buttock or LE. Lumbar flexion/extension and rotation ROM with minimal pain. AROM b/l hip flexion, knee flexion/extension, ankle flexion/extension intact. Sensation intact plantar/dorsal foot. Brisk capillary refill. Results & Data Results & Data Laboratory Results . 10/22/24 07:03 WBC 8.38 RBC 4.43 L Hgb 13.3 L Hct 39.6 L MCV 89.4 MCH 30.0 MCHC 33.6 RDW Std Deviation 40.1 RDW Coeff of Todd 12.2 Plt Count 513 H MPV 8.0 L Sodium 137 Potassium 3.7 Chloride 107 Carbon Dioxide 24 Anion Gap 6 BUN 16 Creatinine 0.65 Est Cr Clr Drug Dosing 87.5 eGFR 95.85 BUN/Creatinine Ratio 24.6 H Glucose 109 H Calcium 8.3 L Total Bilirubin 0.4 AST 24 ALT 31 Alkaline Phosphatase 62 Total Protein 5.9 L Albumin 3.2 L Globulin 2.7 Albumin/Globulin Ratio 1.2 Diagnostic Findings . PG Care Time/CCT Total # of Minutes Spent Total Time Spent with Patient: Total time spent is greater than 50% in coordination of care (as documented) at patient's floor/unit and/or counseling patient: Coding Level of Care Code 19133 Post Operative Follow-Up Diagnoses S/P lumbar discectomy Z98.890 Wound dehiscence T81.30XA
--- NOTE | 2024-10-22 11:04 | Pharmacy Report ---
Pharmacy PK ABX Note - Date of Service October 22, 2024 - Assessment and Plan Assessment 78 year old M receiving IV Vancomycin for treatment of possible skin and soft tissue infection at surgical site, likely organisms of concern include skin jm ( staph, strep). Pseudomonas cellulitis is less likely. ID Consult. Asymptomatic pyuria/bacteriuria does not need to be treated in this case. Risk outweigh benefits. He he did not have kavon urinary symptoms. Urine culture appears contaminated with many epithelial cells. Cefepime increases the risk of delirium and altered mental status. He has received 3 days of Pseudomonal coverage. Blood cultures, no growth to date. Day # 2 of Vancomycin therapy. Plan Vancomycin * Loading dose: 1500 mg IV x 1 * Maintenance dose: 1000 mg IV every 12 hours * Regimen is predicted to achieve target AUC/VARGAS of 400-600 mg/L.hr * Rabdin level ordered for: 10/23/24 with AM labs Pharmacy will continue to follow and will adjust dose/frequency as necessary. Thank you. Pharmacy has transitioned to AUC monitoring for vancomycin. AUC/VARGAS is the preferred PK/PD target and is associated with decreased risk of nephrotoxicity compared to traditional trough targets.
--- NOTE | 2024-10-22 13:29 | Infectious Disease Progress Nt ---
Date of Service October 22, 2024 Assessment & Plan (1) Wound dehiscence: (2) S/P lumbar discectomy: (3) Postoperative CSF leak: Plan This is a 78-year-old man with a past medical history of GERD,, nephrolithiasis status post stone treatment 06/12/2023, urethral stricture, BPH, who was been admitted to [facility] on 10/03/2024. He presented status post fall with complaints of pain down the right leg with weakness. CT spine showed large extruded disc fragment eccentric to the right at L3-L4 which impinged on the transiting right sided nerve root. His symptoms worsened and he was taken to the OR with orthopedics on 10/05/2024 for right L3-L4 discectomy for decompression of the nerve root to help prevent further neurologic decline. Per op report the right L3-4 facet joint was tightly adherent to the traversing L4 nerve root as it was displaced posteriorly by the disc herniation. The dura was quite compressed and appeared a bit thin. Course complicated by clear drainage from the incision on 10/06/2024. He developed leukocytosis with a WBC of 12.75 and a one time fever of T 38.2 on 10/07/2024. He continued to have clear leakage from the wound and there was concern for an ongoing dural leak. He was taken back to the OR on 10/11/2024 for L3-4 laminectomy dural repair. . On 10/09/2024 he had strokelike symptoms and was diagnosed with possible TIA. CT head revealed no acute intracranial hemorrhage, midline shift or acute territorial infarct. His course was also complicated by delirium. Because of delirium a urinalysis and blood culture was obtained on 10/18/2024. He remains afebrile and HDS. Urinalysis was positive for nitrites, blood, leukocyte esterase > 50 WBC and 3-5 epithelial cells. A dick was in place. He was started on ceftriaxone and then transitioned to cefepime once urine cultures finalized as pans Pseudomonas aeruginosa. Surgical site incision continued to have drainage and an area of dehiscence. There was concern for possible surgical site infection/cellulitis. Orthopedics following. No plans for wound washout at this time. Patient without any headaches or neck pain. No urinary symptoms documented. ID consulted for possible surgical site infection and Pseudomonas aeruginosa growing in urine culture. His leukocytosis has resolved. Plts worsening at 531. An E consult without video evaluation completed as video/camera is not working Microbiology: 10/18 blood culture NGTD 10/18 Urine culture > 100 k Pseudomonas aeruginosa (pansensitive) Antibiotics Cefazolin 10/10 - 10/13 Ceftriaxone 10/18 Cefepime Vancomycin 10/21-current # Lumbar stenosis, lumbar spondylosis, herniation of lumbar intervertebral disc with radiculopathy -s/p right L34 discectomy 10/05 #Postoperative CSF leak - s/p dural repair 10/11 # Lumbar surgical site wound dehiscence- ? SSTI #Asymptomatic pyuria and bacteriuria, ? from dick catheter #Delirium #Leukocytosis, resolved #Thrombocytosis #Fever on 10/07 ( once)resolved Discussion: Patient presents with LE weakness and pain-- found to have disc herniation at the lumbar spine. He underwent right L34 discectomy. Course complicated by one-time fever, thrombocytosis, leukocytosis. Diagnosed with a po st operative CSF leak. He underwent dural repair. His course further complicated by delirium. Cognitive change prompted a urinalysis which showed pyuria but many epithelial cells ( ? from dick) . Urine culture grew Pseudomonas aeruginosa No documented urinary symptoms. He continued have drainage from his surgical site and there is concern for surgical site cellulitis. Incision site photo reviewed and appears to have cellulitis. Leukocytosis resolved. Asymptomatic pyuria/bacteriuria does not need to be treated in this case . Risk outweigh benefits. He did not have kavon urinary symptoms. Urine culture appears contaminated with many epithelial cells. ( ? if collected from dick). AMS is not usually a symptom for UTI. Additionally cefepime increases the risk of delirium and altered mental status. He has received 3 days of Pseudomonal coverage. Cefepime dced and vanco started 10/21. recommended dick change if not done this admission or removal if able 10/22 photo of incision site reviewed- Minimal erythema, no drainage noted. Plts 513 Recommendations: -Continue IV vancomycin per pharmacy protocol for possible skin and soft tissue infection at surgical site. Likely orgs of concern include skin jm ( staph, strep). Pseudomonas cellulitis is less likely -Ortho following and monitoring need for washout of wound. If Or, then send tissue- for aerobic, anaerobic and fungal culture Per review of Op report, no hardware noted. - Monitor plts If no concerns for deep seeded spine infection per ortho, continued clinical improvement of cellulitis and remains HDS, no bacteremia, then can switch to 10 days ( 10/21- 10/31) ofdoxycycline 100 mg po bid and cefadroxil 100 mg po bid ( if insurance doesn't cover cefadroxil, then cephalexin 500 mg po q6 hrs instead). Crcl 87 ID will continue to follow. Lefty Gutierrez MD, MPH Infectious Disease ID [facility], ID [facility] Call [phone] with questions Admission and Anticipated Discharge Date Admission Date: October 03, 2024 Subjective This patient recommendation is based on a telemedicine consult request which was completed asynchronously through chart review and information provided by the primary physician. The patient was not seen or examined today. The evaluation is consultative in nature and all patient care and treatment decisions can either be accepted or rejected by the patient's primary hospital-based treating physician using their own independent medical judgment for their patient. Time Spent Reviewing Chart: 11 - 20 minutes Afebrile WBC 8.38, plt 513, cr 0.65 Results & Data Vital Signs (Past 12 Hours) Vital Signs Temp Pulse Resp BP Pulse Ox O2 Del Method 10/22/24 11:20 36.7 C 93 H 19 134/71 96 Room Air 10/22/24 07:55 36.5 C 84 20 160/95 H 97 Room Air 10/22/24 02:59 36.7 C 80 18 141/85 H 93 Room Air Laboratory Results Laboratory Results - last 48 hr 10/21/24 10/22/24 07:35 07:03 WBC 10.61 8.38 RBC 4.49 L 4.43 L Hgb 13.5 L 13.3 L Hct 40.0 L 39.6 L MCV 89.1 89.4 MCH 30.1 30.0 MCHC 33.8 33.6 RDW Std Deviation 39.6 40.1 RDW Coeff of Todd 12.2 12.2 Plt Count 513 H 513 H MPV 8.1 L 8.0 L Sodium 135 L 137 Potassium 4.0 3.7 Chloride 105 107 Carbon Dioxide 23 24 Anion Gap 7 6 BUN 18 16 Creatinine 0.67 0.65 Est Cr Clr Drug Dosing 84.5 87.5 eGFR 94.98 95.85 BUN/Creatinine Ratio 26.9 H 24.6 H Glucose 109 H 109 H Calcium 8.4 L 8.3 L Total Bilirubin 0.5 0.4 AST 21 24 ALT 27 31 Alkaline Phosphatase 63 62 Total Protein 6.0 5.9 L Albumin 3.2 L 3.2 L Globulin 2.8 2.7 Albumin/Globulin Ratio 1.1 1.2 Microbiology 10/18/24 16:03 Blood Aerobic Blood Culture - Preliminary No growth in Aerobic bottle after 48 hours. 10/18/24 16:03 Blood Anaerobic Blood Culture - Preliminary No growth in Anaerobic bottle after 48 hours. 10/18/24 16:12 Blood Aerobic Blood Culture - Preliminary No growth in Aerobic bottle after 48 hours. 10/18/24 16:12 Blood Anaerobic Blood Culture - Preliminary No growth in Anaerobic bottle after 48 hours. 10/18/24 16:50 Urine,Straight Cath Urine Culture - Final Pseudomonas aeruginosa Medications Administered Home Medications Medication Instructions Recorded Confirmed Last Taken multivitamin 1 tab PO QAM 05/20/23 10/03/24 10/02/24 pantoprazole 40 mg tablet,delayed 40 mg PO QAM 05/20/23 10/03/24 10/02/24 release vit C 250 mg-vit E 90 mg-zinc 40 1 tab PO BID 05/20/23 10/03/24 10/02/24 mg-copper 1 [id number] capsule (PreserVision AREDS-2) acetaminophen 325 mg tablet 650 mg (2 x 325 mg) PO Q4H PRN 10/21/24 Unknown pain #40 tabs sennosides 8.6 mg-docusate sodium 2 tab PO HS #20 tabs 10/21/24 Unknown 50 mg tablet (Senokot-S) tizanidine 4 mg tablet 4 mg PO Q8H PRN muscle spasticity 10/21/24 Unknown #30 tabs Active Medications Generic Name Dose Route Start Last Admin Trade Name Freq PRN Reason Stop Dose Admin Acetaminophen 650 mg 10/10/24 12:07 10/19/24 21:49 Acetaminophen 325 Mg Tab PO 11/09/24 12:06 650 mg Q4H PRN Administration Fever/Mild Pain (Pain 1,2,3) Amlodipine Besylate 5 mg 10/15/24 11:30 10/22/24 07:50 Amlodipine Besylate 5 Mg Tab PO 11/14/24 11:29 5 mg QAM ELIZA Administration Ascorbic Acid 500 mg 10/21/24 09:30 10/22/24 07:50 Ascorbic Acid 500 Mg Tab PO 11/20/24 09:29 500 mg QAM ELIZA Administration Atorvastatin Calcium 40 mg 10/10/24 09:00 10/22/24 07:50 Atorvastatin 40 Mg Tab PO 11/09/24 08:59 40 mg QAM ELIZA Administration Enoxaparin Sodium 40 mg 10/14/24 09:00 10/19/24 08:45 Enoxaparin Inj 40 Mg/0.4 Ml Syr SQ 11/13/24 08:59 40 mg QAM ELIZA Administration Gabapentin 100 mg 10/03/24 21:00 10/21/24 20:22 Gabapentin 100 Mg Cap PO 11/02/24 20:59 100 mg HS ELIZA Administration Vancomycin HCl 1,000 mg in 270 mls @ 200 mls/hr 10/22/24 00:00 10/22/24 12:30 Vancomycin Hcl / Nss IV 10/29/24 00:00 200 mls/hr Q12H ELIZA Administration Mirtazapine 15 mg 10/21/24 21:00 10/21/24 20:22 Mirtazapine Tab 15 Mg Tab PO 11/20/24 20:59 15 mg HS ELIZA Administration Multivitamins/Minerals 1 tab 10/22/24 09:00 10/22/24 07:50 Cerovite Adv Formula Tab PO 11/21/24 08:59 1 tab QAM ELIZA Administration Pantoprazole Sodium 40 mg 10/14/24 09:00 10/22/24 07:49 Pantoprazole 40 Mg Tab PO 11/13/24 08:59 40 mg DAILY ELIZA Administration Protocol Senna/Docusate Sodium 2 tab 10/05/24 21:00 10/21/24 20:22 Docusate Sodium/Senna 50/8.6mg Tab PO 11/04/24 20:59 2 tab HS ELIZA Administration Tamsulosin HCl 0.4 mg 10/04/24 09:00 10/22/24 07:49 Tamsulosin Hcl 0.4 Mg Cap PO 11/03/24 08:59 0.4 mg QAM ELIZA Administration Tizanidine HCl 4 mg 10/05/24 13:58 10/21/24 11:20 Tizanidine Hcl 4 Mg Tablet PO 11/04/24 13:57 4 mg Q8H PRN Administration Muscle Spasm Zinc Sulfate 220 mg 10/22/24 09:00 10/22/24 07:49 Zinc Sulfate 220 Mg Capsule PO 11/21/24 08:59 220 mg QAM ELIZA Administration
--- NOTE | 2024-10-22 13:47 | Hospitalist Progress Note ---
"Date of Service October 22, 2024 Assessment & Plan (1) Postoperative CSF leak: (2) S/P lumbar discectomy: (3) Lumbar stenosis without neurogenic claudication: (4) Stroke-like symptom: Plan This patient is a 78-year-old male who presented on 10/03 after sustaining a fall. increased drainage from lumbar incision site seen by spine surgeon on 10/20/ deferring OR today delirium, ongoing delirium still have disorientation,again, move patient to a window facing room lumbar cellulitis, post-surgical infection noted he has right L3-L4 disectomy on 10/05 then L3-L4 dural tear repair on 10/11 switched from cefepime to vancomycin on oct 21, [address] Mitchell; recommended dressing every 3 times per day ID consulted. mood disorder has somnolence on remeron may begin SSRI and then monitor for hyponatremia # Strokelike symptoms | ?TIA vs. CVA CTA found 60-70% stenosis of proxiaml right ICA Occurred at approximately 0730AM 10/09 Not a thrombolytic candidate due to recent spinal surgery s/p permissive HTN Head CT revealed no acute intracranial hemorrhage, midline shift, or acute territorial infarct Did reveal a 2 mm metallic density foreign body in the left globe (MRI contraindicated) Repeat head CT on 10/10 revealed no acute changes from prior Given this finding, telestroke (Dr. Bryan Koenig) did recommended full dose of aspirin 324mg Aspirin 324 mg p.o. x 1 Patient passed dysphagia screen, okay to eat Initiate atorvastatin 40 mg QAM A1c WNL at 5.5, lipid panel WNL Additional aspirin held due to resolution of patient's strokelike and planned blood patch next week thrombocytosis platelet increased from 300--> 550 f/u on CT chest, PSA level, pain control added robaxin for low back pain deposition #Adverse drug reaction related to oxycodone, which was given in the morning prior to stroke alert. Granddaughter says this leads to auditory and visual hallucinations. Yet to be determined if this contributed to patient's garbled speech the morning of stroke alert. However, it would not fully except patient's left-sided facial droop. At any rate, oxycodone has been discontinued. #Falls | Right leg weakness | Right sided sciatica s/p right L3-L4 discectomy 10/05/[address] Agarwal s/p dural tear repair on 10/11 CT lumbar shows large inferiorly extruded disc fragment eccentric to the right at L3-L4 which impinges on the transiting right-sided nerve rootsMRI reviewed Pain control with and Tylenol, oxycodone, and Dilaudid PRN Per Ortho, patient continues to have clear drainage from incision site Aspirin held for potential blood patch early next week #HTN Patient states that his SBP tends to run 130-140 BP had improved but now worsening again initiate pt on Amlodipine 5mg po daily #Hyponatremia (improving) #BPH- Continue Flomax Disposition: Continued stay on PCU telemetry, pending placement insurance denied LTACH DVT PPx: SCDs, cleared by ortho to initiate Lovenox subq for DVT ppx Code status: Full code, he did say that he does not want to be prolonged with artificial support Admission and Anticipated Discharge Date Admission Date: October 03, 2024 Subjective he has excessive somnolence on remeron stop spoke with his grand-daughter, requested for starting antidepressant discussed about need for monitoring sodium while on SSRI spine surgery requested that we change the dressing and pack the wound every change of shift ID team following communicated with spine surgery; infectious disease grand-daughter Candaced, updated. for his lumbar surgery; pain much improved; BP improved he's will need IV antibiotics for wound infection he's [facility] he's required physician monitor for vancomycin dosage in the past, he has hallucination with oxycodone Physical Exam Physical Exam: VITALS: Reviewed. WEIGHT/BMI reviewed. GEN: Healthy appearing, well-developed, NAD. -Head: NC/AT; CV: RRR, no m/r/g. LUNGS: CTAB, no w/r/c. ABD: Soft, NT/ND, NBS, no masses or organomegaly. SKIN: trace discharge from incision; non-tender to palpation MSK: No deformities, Normal gait. EXT: No clubbing, cyanosis, or edema. NEURO:AAOx3 Results & Data Results & Data Vital Signs (Past 12 Hours) Vital Signs Temp Pulse Resp BP Pulse Ox O2 Del Method 10/22/24 11:20 36.7 C 93 H 19 134/71 96 Room Air 10/22/24 07:55 36.5 C 84 20 160/95 H 97 Room Air 10/22/24 02:59 36.7 C 80 18 141/85 H 93 Room Air Laboratory Results Laboratory Results - last 72 hr 10/20/24 10/21/24 10/22/24 05:47 07:35 07:03 WBC 9.44 10.61 8.38 RBC 4.38 L 4.49 L 4.43 L Hgb 13.8 L 13.5 L 13.3 L Hct 39.3 L 40.0 L 39.6 L MCV 89.7 89.1 89.4 MCH 31.5 30.1 30.0 MCHC 35.1 33.8 33.6 RDW Std Deviation 40.0 39.6 40.1 RDW Coeff of Todd 12.1 12.2 12.2 Plt Count 531 H 513 H 513 H MPV 8.3 L 8.1 L 8.0 L Sodium 136 135 L 137 Potassium 3.8 4.0 3.7 Chloride 104 105 107 Carbon Dioxide 27 23 24 Anion Gap 5 7 6 BUN 17 18 16 Creatinine 0.71 0.67 0.65 Est Cr Clr Drug Dosing 79.0 84.5 87.5 eGFR 93.33 94.98 95.85 BUN/Creatinine Ratio 23.9 H 26.9 H 24.6 H Glucose 109 H 109 H 109 H Calcium 8.3 L 8.4 L 8.3 L Total Bilirubin 0.5 0.4 AST 21 24 ALT 27 31 Alkaline Phosphatase 63 62 Total Protein 6.0 5.9 L Albumin 3.2 L 3.2 L Globulin 2.8 2.7 Albumin/Globulin Ratio 1.1 1.2 PG Care Time/CCT Total # of Minutes Spent Total Time Spent with Patient: Total time spent is greater than 50% in coordination of care (as documented) at patient's floor/unit and/or counseling patient: Coding Level of Care Code 49652 SUB INP/OBS CARE 2/35MIN Diagnoses Postoperative CSF leak G97.82; G96.00 S/P lumbar discectomy Z98.890 Lumbar stenosis without neurogenic claudication M48.061 Stroke-like symptom R29.90 Time Spent (min) 35"
[2024-10-23 05:22] LABS: Hematocrit (blood only) 39.2 % (42.0-52.0); Hemoglobin 13.8 g/dl (14.0-18.0); Mean Corpuscular Hemoglobin 31.7 pg (25.0-34.0); Mean Corpuscular Volume 89.9 fL (80.0-100.0); Platelet Count 482 K/uL (130-400); RDW Standard Deviation 40.1 fL (36.4-46.3); Red Blood Count 4.36 M/uL (4.70-6.10); White Blood Count 8.67 K/ul (4.8-10.8)
[2024-10-23 05:37] LABS: Alanine Aminotransferase 38.0 U/L (7-52); Albumin Globulin Ratio 1.1 (0.9-2); Alkaline Phosphatase 69.0 U/L (34-104); Anion Gap 6.0 (3-11); Bilirubin,Total 0.4 mg/dl (0.2-1.0); Blood Urea Nitrogen 18.0 mg/dl (6-23); Calcium 8.4 mg/dl (8.6-10.3); Carbon Dioxide 24.0 mmol/L (21-32); Chloride 106.0 mmol/L (98-107); Creatinine Clr Calc Pharmacy 84.9 ml/min; Globulin 2.7 gm/dl (2.5-4.0); Glucose 108.0 mg/dl (70-99(Fasting)); Potassium 3.8 mmol/L (3.5-5.1); Sodium 136.0 mmol/L (136-145); Total Protein 5.8 gm/dl (6.0-8.3)
--- NOTE | 2024-10-23 09:20 | Orthopedic Progress Note ---
Date of Service October 23, 2024 Assessment & Plan (1) S/P lumbar discectomy: (2) Wound dehiscence: Plan Continue Current Treatment * Dressing changed this morning. Continue daily dry dressing changes * Stressed importance of mobilization with patient and family. * ID consult appreciated, abx per recommendations * Weight bearing status: As tolerated * Daily treatment: Physical Therapy/ Occupational Therapy per protocol * Pain control * DVT prophylaxis per primary team * Disposition: rehab * Will continue to follow closely while hospitalized. Ultimately recommend transfer to rehab facility for continued mobilization with close office follow-up next week. Continued antibiotic suppression. Will evaluate wound at that time, no plan for OR currently. Subjective Active Problems: S/p 10/05 L3-4 discectomy, 10/11 L3-4 laminectomy for dural tear repair, no active leak detected POD 12 78 y/o male s/p above procedures. Increased drainage from incision noted, evaluated by Dr Walton and Paula, surgical incision is now dehiscing with superficial fibrinous tissue. Exam consistent with superficial soft tissue infection, but no deep exposure noted. Denies fever/chills, chest pain/SOB, nausea/vomiting. Has been working harder with PT since our meeting with family earlier this week. ID evaluated for management of UTI and surgical site infection, abx changed to Vanco. Review of Systems All systems reviewed & are unremarkable except as noted in HPI & below. Physical Exam * General: Alert and oriented, no acute distress * Constitutional: well-developed, well-nourished. * Respiratory: Normal respiratory effort, no distress * Gastrointestinal: No tenderness to palpation, no rigidity or guarding. * Skin: No rash or lesion. Lumbar incision examined, fibrinous tissue at the incision bed, there appears to be wound dehiscence at the edges however no obvious opening to the fascia below. No obvious purulent drainage, 4 x 4 gauze does have signs of fibrinous exudate. * Neurologic: Grossly normal * Musculoskeletal: Surgical dressing removed. Distal 2/3 of incision have dehisced with exposed fibrinous tissue. Mild drainage on dressing. No outright purulence noted on dressing or at time of exam. Otherwise lumbar spine region without obvious deformity. Minimal tenderness of surgical region, otherwise no tenderness b/l buttock or LE. Lumbar flexion/extension and rotation ROM with minimal pain. AROM b/l hip flexion, knee flexion/extension, ankle flexion/extension intact. Sensation intact plantar/dorsal foot. Brisk capillary refill. Results & Data Results & Data Laboratory Results 10/23/24 04:45 WBC 8.67 RBC 4.36 L Hgb 13.8 L Hct 39.2 L MCV 89.9 MCH 31.7 MCHC 35.2 RDW Std Deviation 40.1 RDW Coeff of Todd 12.2 Plt Count 482 H MPV 8.3 L Sodium 136 Potassium 3.8 Chloride 106 Carbon Dioxide 24 Anion Gap 6 BUN 18 Creatinine 0.67 Est Cr Clr Drug Dosing 84.9 eGFR 94.98 BUN/Creatinine Ratio 26.9 H Glucose 108 H Calcium 8.4 L Total Bilirubin 0.4 AST 25 ALT 38 Alkaline Phosphatase 69 Total Protein 5.8 L Albumin 3.1 L Globulin 2.7 Albumin/Globulin Ratio 1.1 Random Vancomycin 15.3 Diagnostic Findings . PG Care Time/CCT Total # of Minutes Spent Total Time Spent with Patient: Total time spent is greater than 50% in coordination of care (as documented) at patient's floor/unit and/or counseling patient: Coding Level of Care Code 83925 Post Operative Follow-Up Diagnoses S/P lumbar discectomy Z98.890 Wound dehiscence T81.30XA
--- NOTE | 2024-10-23 13:21 | Hospitalist Progress Note ---
Date of Service October 23, 2024 Assessment & Plan (1) Postoperative CSF leak: (2) S/P lumbar discectomy: (3) Lumbar stenosis without neurogenic claudication: (4) Stroke-like symptom: Plan This patient is a 78-year-old male who presented on 10/03 after sustaining a fall. #Falls | Right leg weakness | Right sided sciatica - s/p right L3-L4 discectomy 10/05/[address] Walton, s/p dural tear repair on 10/11 CT lumbar shows large inferiorly extruded disc fragment eccentric to the right at L3-L4 which impinges on the transiting right-sided nerve roots. MRI showed degenerative changes of the lumbar spine with small extruded focus of disc material at L3-L4 contacting the descending L5 nerve root. Pain control: tylenol, prn xanflex. AVOID oxycodone. Ortho consulted - frequent dressing changes, continue abx, rehab an dfollow up in ofice next week. No further plans for OR at this time. #lumbar cellulitis, post-surgical infection Patient with increasing drainage from wound concerning for infection. Initially started on vancomycin and transitioned to cefepime. ID consulted - rec "If no concerns for deep seeded spine infection per ortho, continued clinical improvement of cellulitis and remains HDS, no bacteremia, then can switch to 10 days" of oral antibiotics. Confirmed with ortho 10/23 no concerns for deep seeded infection. Transitioned to Doxycycline and cefadroxil BID 10/23- 10/31 mood disorder | Delirum has somnolence on remeron Consider SSRI # Strokelike symptoms | ?TIA vs. CVA - Occurred at approximately 0730AM 10/09. Not a thrombolytic candidate due to recent spinal surgery. Head CT and repeat Head CT without acute findings (MRI contraindicated 2/2 metallic foreign body). Given this finding, telestroke (Dr. Bryan Koenig) did recommended full dose of aspirin 324mg. CTA found 60-70% stenosis of proximal right ICA Initiate atorvastatin 40 mg QAM A1c WNL at 5.5, lipid panel WNL Daily ASA resumed with no plans for OR #Adverse drug reaction related to oxycodone, which was given in the morning prior to stroke alert. Granddaughter says this leads to auditory and visual hallucinations. Yet to be determined if this contributed to patient's garbled speech the morning of stroke alert. However, it would not fully except patient's left-sided facial droop. At any rate, oxycodone has been discontinued. #thrombocytosis platelet increased from 300--> 550 but now improving PSA WNL #HTN - no home meds, but will elevations during the stay Started on Amlodipine 5mg po daily #Hyponatremia (improving) #BPH- Continue Flomax Disposition: continued inpatient stay, awaitng safe discharge dispo. stable for down grade to medical DVT PPx: SCDs, cleared by ortho to initiate Lovenox subq for DVT ppx Admission and Anticipated Discharge Date Admission Date: October 03, 2024 Subjective Patient seen sitting up in the chair -reports doing well. good appetite was able to ambulate in the bermudez today Tele SR with 1st degree AV block 70-100 Review of Systems Review of Systems: All systems reviewed & are unremarkable except as noted in Subjective Physical Exam Physical Exam: General: NAD, VS as above Resp: normal respiratory effort, lungs clear to auscultation CV: RRR, no murmur, Abd: normal bowel sounds, non tender,soft Back: dressing c/d/i Extremities: Moves all extremities, no edema Neuro: A&O x3, Skin: intact, no lesions noted Results & Data Results & Data Vital Signs (Past 12 Hours) Vital Signs Temp Pulse Resp BP Pulse Ox O2 Del Method 10/23/24 11:02 98.6 F 101 H 20 105/73 94 Room Air 10/23/24 08:00 Room Air 10/23/24 07:16 97.7 F 76 20 154/89 H 97 Room Air 10/23/24 03:34 98.4 F 76 20 159/90 H 97 Room Air PG Care Time/CCT Total # of Minutes Spent Total Time Spent with Patient: Total time spent is greater than 50% in coordination of care (as documented) at patient's floor/unit and/or counseling patient: Coding Level of Care Code 76973 SUB INP/OBS CARE 2/35MIN Diagnoses Postoperative CSF leak G97.82; G96.00 S/P lumbar discectomy Z98.890 Lumbar stenosis without neurogenic claudication M48.061 Stroke-like symptom R29.90
[2024-10-23] MEDS: DOXYCYCLINE HYCLATE 100 MG CAP PO SCH (21:38)
[2024-10-24] MEDS: ASPIRIN 81 MG ECTAB PO SCH (08:29)
--- NOTE | 2024-10-24 10:27 | Orthopedic Progress Note ---
Date of Service October 24, 2024 Subjective Patient seen and, he notes no notable low back pain, ambulating without any lower extremity symptoms, denies any fevers or chills. Dressing recently changed in the last 2 hours no appreciable drainage at this time. Impression/plan: Status post surgeries as noted, low-grade superficial infection. Antibiotics monitoring follow-up in office. Review of Systems All systems reviewed & are unremarkable except as noted in HPI & below. Physical Exam . Results & Data Results & Data Laboratory Results . Diagnostic Findings . PG Care Time/CCT Total # of Minutes Spent Total Time Spent with Patient: Total time spent is greater than 50% in coordination of care (as documented) at patient's floor/unit and/or counseling patient: Coding Level of Care Code 04959 Post Operative Follow-Up
--- NOTE | 2024-10-24 13:17 | Hospitalist Progress Note ---
Date of Service October 24, 2024 Assessment & Plan (1) Postoperative CSF leak: (2) S/P lumbar discectomy: (3) Lumbar stenosis without neurogenic claudication: (4) Stroke-like symptom: (5) UTI (urinary tract infection): Plan This patient is a 78-year-old male who presented on 10/03 after sustaining a fall. #Falls | Right leg weakness | Right sided sciatica - s/p right L3-L4 discectomy 10/05/[address] Walton, s/p dural tear repair on 10/11 CT lumbar shows large inferiorly extruded disc fragment eccentric to the right at L3-L4 which impinges on the transiting right-sided nerve roots. MRI showed degenerative changes of the lumbar spine with small extruded focus of disc material at L3-L4 contacting the descending L5 nerve root. Pain control: tylenol, prn xanflex. AVOID oxycodone. Ortho consulted - frequent dressing changes, continue abx, rehab an dfollow up in ofice next week. No further plans for OR at this time. #Lumbar cellulitis, post-surgical infection Patient with increasing drainage from wound concerning for infection. Initially started on vancomycin and transitioned to cefepime. ID consulted - rec "If no concerns for deep seeded spine infection per ortho, continued clinical improvement of cellulitis and remains HDS, no bacteremia, then can switch to 10 days" of oral antibiotics. Confirmed with ortho 10/23 no concerns for deep seeded infection. Transitioned to Doxycycline and cefadroxil BID 10/23- 10/31 #Mood disorder | Delirum has somnolence on remeron Consider SSRI #Strokelike symptoms | ?TIA vs. CVA - Occurred at approximately 0730AM 10/09. Not a thrombolytic candidate due to recent spinal surgery. Head CT and repeat Head CT without acute findings (MRI contraindicated 2/2 metallic foreign body). Given this finding, telestroke (Dr. Bryan Koenig) did recommended full dose of aspirin 324mg. CTA found 60-70% stenosis of proximal right ICA Initiate atorvastatin 40 mg QAM A1c WNL at 5.5, lipid panel WNL Daily ASA resumed with no plans for OR #Adverse drug reaction related to oxycodone, which was given in the morning prior to stroke alert. Granddaughter says this leads to auditory and visual hallucinations. Yet to be determined if this contributed to patient's garbled speech the morning of stroke alert. However, it would not fully except patient's left-sided facial droop. At any rate, oxycodone has been discontinued. #Thrombocytosis platelet increased from 300--> 550 but now improving PSA WNL #HTN - no home meds, but will elevations during the stay Started on Amlodipine 5mg po daily #UTI UCx on 10/18 grew Pseudomonas Cefepime 2000 mg IV x 2 days, followed by vancomycin 1000 mg IV q12h x 3 days Clinically, patient still endorses mild burning with urination (which is improving) Continue cefadroxil 500 mg p.o. BID #BPH- Continue Flomax Disposition: continued inpatient stay, awaitng safe discharge dispo DVT PPx: SCDs, cleared by ortho for chemical DVT PPx; continue Lovenox 40 mg SQ QAM Admission and Anticipated Discharge Date Admission Date: October 03, 2024 Supervising Physician Co-Signing Physician Notes Attending Attestation - Chart reviewed, care plan d/w NICOLE Macedo. I agree w/ the jaimes components of his documentation with the following exception - Of note - infectious disease felt that pseudomonas in the urine was asymptomatic bacteriuria. The cefadroxil is NOT for the pseudomonas as this antibiotic would not cover pseudomonas. The cefadroxil is for the cellulitis of back. Campbell Hercules MD Subjective Mr. Sierra is in good spirits this morning. He has no new complaints at this time. He has been eating and drinking well, and slept well last night. He denies any pain in the back of his head, and denies any pain surrounding his surgical site. Patient is able to roll in bed without difficulty he is still exhibiting burning with urination and dysuria, but reports this has been improving. ROS: Patient endorses burning with urination (improving). Patient denies headache, fevers, dizziness, lightheadedness, changes in vision chest pain, pleuritic CP, SOB, cough, abdominal pain, N/V/D, lower back pain, or blood in the urine or stool. Review of Systems Review of Systems: See HPI above Physical Exam Physical Exam: General: no acute distress; pleasant affect non-toxic appearing; well-nourished; cooperative; SpO2 96% on RA HEENT: normocephalic, atraumatic; no scleral icterus; PERRLA w/ EOMs intact; vision and hearing grossly intact Neck: supple; no lymphadenopathy; trachea midline Skin: warm, dry without signs of tenting; no cyanosis; no rashes, bruising, lesions, or erythema noted CV: chest wall NTP; RRR; S1/S2 normal; no murmurs/rubs/gallops; pulses intact and symmetric at radial, DP, and PT Lungs: no acute respiratory distress; symmetrical chest wall expansion; clear breath sounds across all lung canela w/o adventitious sounds; no wheezing ABD: Soft, NTP; BS present; no rebound/guarding; no distention : Negative suprapubic tenderness Back: Upper spine NTP; lower spine around the surgical incision site is NTP; dressing in place without signs of erythema, drainage, or infection MSK: no tics or fasciculations; no edema noted in the LEs b/l, nonerythematous; patient's right leg exhibits decree strength (3/5) when compared to the left leg (5/5) when asked to lift the leg up out of bed against resistance Neuro: A&Ox3; normal mood and affect; fluent speech; no focal deficits; sensation intact and symmetric in all extremities bilaterally assessed via light touch Results & Data Results & Data Vital Signs (Past 12 Hours) Vital Signs Temp Pulse Resp BP Pulse Ox O2 Del Method 10/24/24 07:13 36.9 C 79 18 131/74 96 Room Air PG Care Time/CCT Total # of Minutes Spent Total Time Spent with Patient: Total time spent is greater than 50% in coordination of care (as documented) at patient's floor/unit and/or counseling patient: C[place] [address] SUB INP/OBS CARE 03/07MIN Patient Type Established Medical Decision Making Low Complexity Diagnoses Postoperative CSF leak G97.82; G96.00 S/P lumbar discectomy Z98.890 Lumbar stenosis without neurogenic claudication M48.061 Stroke-like symptom R29.90 UTI (urinary tract infection) N39.0
--- NOTE | 2024-10-25 12:40 | Hospitalist Progress Note ---
Date of Service October 25, 2024 Assessment & Plan (1) Postoperative CSF leak: (2) S/P lumbar discectomy: (3) Lumbar stenosis without neurogenic claudication: (4) Stroke-like symptom: (5) UTI (urinary tract infection): Plan This patient is a 78-year-old male who presented on 10/03 after sustaining a fall. #Falls | Right leg weakness | Right sided sciatica - s/p right L3-L4 discectomy 10/05/[address] Walton, s/p dural tear repair on 10/11 CT lumbar shows large inferiorly extruded disc fragment eccentric to the right at L3-L4 which impinges on the transiting right-sided nerve roots. MRI showed degenerative changes of the lumbar spine with small extruded focus of disc material at L3-L4 contacting the descending L5 nerve root. Pain control: tylenol, prn xanflex. AVOID oxycodone. Ortho consulted - frequent dressing changes, continue abx, rehab an dfollow up in ofice next week. No further plans for OR at this time. CM following P2P for [facility] denied on 10/25 Waiting to hear back on bed availability for [facility] #Lumbar cellulitis, post-surgical infection Patient with increasing drainage from wound concerning for infection. Initially started on vancomycin and transitioned to cefepime. ID consulted - rec "If no concerns for deep seeded spine infection per ortho, continued clinical improvement of cellulitis and remains HDS, no bacteremia, then can switch to 10 days" of oral antibiotics. Confirmed with ortho 10/23 no concerns for deep seeded infection. Transitioned to Doxycycline and cefadroxil BID 10/23- 10/31 #Mood disorder | Delirum Has somnolence on remeron Consider SSRI #Strokelike symptoms | ?TIA vs. CVA - Occurred at approximately 0730AM 10/09. Not a thrombolytic candidate due to recent spinal surgery. Head CT and repeat Head CT without acute findings (MRI contraindicated 2/2 metallic foreign body). Given this finding, telestroke (Dr. Bryan Koenig) did recommended full dose of aspirin 324mg. CTA found 60-70% stenosis of proximal right ICA Initiate atorvastatin 40 mg QAM A1c WNL at 5.5, lipid panel WNL Daily ASA resumed with no plans for OR #Adverse drug reaction related to oxycodone, which was given in the morning prior to stroke alert. Granddaughter says this leads to auditory and visual hallucinations. Yet to be determined if this contributed to patient's garbled speech the morning of stroke alert. However, it would not fully except patient's left-sided facial droop At any rate, oxycodone has been discontinued. #Thrombocytosis platelet increased from 300--> 550 but now improving (down to 482 on 10/25) PSA WNL #HTN - no home meds, but will elevations during the stay Started on Amlodipine 5mg po daily #UTI UCx on 10/18 grew Pseudomonas Cefepime 2000 mg IV x 2 days, followed by vancomycin 1000 mg IV q12h x 3 days Clinically, patient still endorses mild burning with urination (which is improving) Continue cefadroxil 500 mg p.o. BID #BPH- Continue Flomax Peer to peer denied for [facility] inpatient rehab on 10/25 Denial reason: Patient has been doing well with PT/OT in hospital (approximately 125 - 200 feet of ambulation daily x 3); does not require intensive 3h per day therapy Disposition: continued inpatient stay, awaitng safe discharge dispo DVT PPx: SCDs, cleared by ortho for chemical DVT PPx; continue Lovenox 40 mg SQ QAM Admission and Anticipated Discharge Date Admission Date: October 03, 2024 Supervising Physician Co-Signing Physician Notes Attending Attestation - Chart reviewed, care plan d/w NICOLE Macedo. I agree w/ the jaimes components of his documentation with the following exception - Of note - infectious disease felt that pseudomonas in the urine was asymptomatic bacteriuria. The cefadroxil is NOT for the pseudomonas as this antibiotic would not cover pseudomonas. The cefadroxil is for the cellulitis of back. Cont cefadroxil/doxy for the cellulitis. Campbell Hercules MD Subjective Mr. Sierra has no new complaints at this time. He has been eating and drinking well, and slept well last night. He has mild right sided lower back pain which he rates a 2 out of 10. He denies any pain with movements or palpation. Patient does report that he is sometimes "confused" when he wakes up early in the mornings, but feels alert at this time. He is A&O x 3 and conversational at this time. Updated patient at bedside that insurance had denied [facility] rehab and that a peer to peer would be conducted today. ROS: Patient endorses mild right-sided lower back pain. Patient denies fever, chills, night sweats, chest pain, chest palpitations, SOB, cough, abdominal pain, N/V/D, changes in urinary habits, saddle anesthesia, episodes of urinary/fecal incontinence, or numbness or tingling going down the legs. Review of Systems Review of Systems: See HPI above Physical Exam Physical Exam: General: no acute distress; pleasant affect non-toxic appearing; well-nourished; cooperative; SpO2 96% on RA HEENT: normocephalic, atraumatic; no scleral icterus; PERRLA w/ EOMs intact; vision and hearing grossly intact Neck: supple; no lymphadenopathy; trachea midline Skin: warm, dry without signs of tenting; no cyanosis; no rashes, bruising, lesions, or erythema noted CV: chest wall NTP; RRR; S1/S2 normal; no murmurs/rubs/gallops; pulses intact and symmetric at radial, DP, and PT Lungs: no acute respiratory distress; symmetrical chest wall expansion; clear breath sounds across all lung canela w/o adventitious sounds; no wheezing ABD: Soft, NTP; BS present; no rebound/guarding; no distention : Negative suprapubic tenderness Back: Upper spine NTP; lower spine around the surgical incision site is NTP; dressing in place without signs of erythema, drainage, or infection; right lower back is NTP MSK: no tics or fasciculations; no edema noted in the LEs b/l, nonerythematous; patient's right leg exhibits decree strength (3/5) when compared to the left leg (5/5) when asked to lift the leg up out of bed against resistance Neuro: A&Ox3; normal mood and affect; fluent speech; no focal deficits; sensation intact and symmetric in all extremities bilaterally assessed via light touch Results & Data Results & Data Vital Signs (Past 12 Hours) Vital Signs Temp Resp BP Pulse Ox O2 Del Method 10/25/24 08:31 36.9 C 16 156/90 H 66 L Room Air PG Care Time/CCT Total # of Minutes Spent Total Time Spent with Patient: Total time spent is greater than 50% in coordination of care (as documented) at patient's floor/unit and/or counseling patient: Coding [place] [address] SUB INP/OBS CARE 235MIN Patient Type Established Medical Decision Making Moderate Complexity Diagnoses Postoperative CSF leak G97.82; G96.00 S/P lumbar discectomy Z98.890 Lumbar stenosis without neurogenic claudication M48.061 Stroke-like symptom R29.90 UTI (urinary tract infection) N39.0
--- NOTE | 2024-10-26 10:38 | Orthopedic Progress Note ---
Date of Service October 26, 2024 Assessment & Plan (1) S/P lumbar discectomy: (2) Wound dehiscence: Plan Continue Current Treatment * Continue daily dry dressing changes * Con't abx per ID * Weight bearing status: As tolerated * Daily treatment: Physical Therapy/ Occupational Therapy per protocol * Pain control * DVT prophylaxis per primary team * Disposition: rehab -- [facility] vs. [facility] * Continues to be no plan for return to OR at this time. Subjective 78 y/o male /p L3-4 discectomy (DOS: 10/05/2024) & L3-4 laminectomy for dural tear repair (DOS: 10/11/2024), w/ no active leak detected. POD 15 & 21, respectively. Continues to be drainage from incision noted, evaluated by Dr. Mitchell this morning. Surgical incision remains w/ central dehiscence with superficial fibrinous tissue; dressing was changed about 3 to 4 hours ago by nursing. Denies fever/chills, chest pain/SOB, nausea/vomiting. Says that he has been getting out of bed more and continues to work with PT/OT denies any significant back pain and denies lower extremity symptomatology. Review of Systems All systems reviewed & are unremarkable except as noted in HPI & below. Physical Exam GENERAL: Speech and cognition is intact. Mood and affect is appropriate. Does not appear in acute distress. HEAD: Normocephalic; atraumatic. CHEST: Regular chest respiration and excursion. NEURO: Awake, alert, and oriented x 3. BACK: Dressing intact to lumbar spine. Mild clear/yellow drainage noted on ABD pad. LOWER EXTREMITIES: 5/5 strength L1-S2 myotomes; No deficits noted. NVI distally. Results & Data Results & Data Laboratory Results . Diagnostic Findings . PG Care Time/CCT Total # of Minutes Spent Total Time Spent with Patient: Total time spent is greater than 50% in coordination of care (as documented) at patient's floor/unit and/or counseling patient: Coding Level of Care Code 46183 Post Operative Follow-Up Diagnoses S/P lumbar discectomy Z98.890 Wound dehiscence T81.30XA
--- NOTE | 2024-10-26 11:20 | Hospitalist Progress Note ---
Date of Service October 26, 2024 Assessment & Plan (1) Postoperative CSF leak: (2) S/P lumbar discectomy: (3) Lumbar stenosis without neurogenic claudication: (4) Stroke-like symptom: (5) UTI (urinary tract infection): Plan This patient is a 78-year-old male who presented on 10/03 after sustaining a fall. #Falls | Right leg weakness | Right sided sciatica - s/p right L3-L4 discectomy 10/05/[address] Walton, s/p dural tear repair on 10/11 CT lumbar shows large inferiorly extruded disc fragment eccentric to the right at L3-L4 which impinges on the transiting right-sided nerve roots. MRI showed degenerative changes of the lumbar spine with small extruded focus of disc material at L3-L4 contacting the descending L5 nerve root. Pain control: tylenol, prn xanflex. AVOID oxycodone. Ortho consulted - frequent dressing changes, continue abx, rehab an dfollow up in ofice next week. No further plans for OR at this time. CM following P2P for [facility] denied on 10/25 Waiting to hear back on bed availability for [facility] No update as of 10/26 11a #Lumbar cellulitis, post-surgical infection Patient with increasing drainage from wound concerning for infection. Initially started on vancomycin and transitioned to cefepime. ID consulted - rec "If no concerns for deep seeded spine infection per ortho, continued clinical improvement of cellulitis and remains HDS, no bacteremia, then can switch to 10 days" of oral antibiotics. Confirmed with ortho 10/23 no concerns for deep seeded infection. Doxycycline and cefadroxil BID day 3 of 8 (10/23- 10/31/24) #Mood disorder | Delirum - Has somnolence on remeron - Per nursing his sleep cycle seem to be improving since being on a structured regimen here - Consider SSRI/SNRI if needed. Patient at this time #Strokelike symptoms | ?TIA vs. CVA - Occurred at approximately 0730AM 10/09. Not a thrombolytic candidate due to recent spinal surgery. Head CT and repeat Head CT without acute findings (MRI contraindicated 2/2 metallic foreign body). Given this finding, telestroke (Dr. Bryan Koenig) did recommended full dose of aspirin 324mg. CTA found 60-70% stenosis of proximal right ICA Initiate atorvastatin 40 mg QAM A1c WNL at 5.5, lipid panel WNL Daily ASA resumed with no plans for OR #Adverse drug reaction related to oxycodone, which was given in the morning prior to stroke alert. Rebekah garza says this leads to auditory and visual hallucinations. -oxycodone has been discontinued, avoid moving forward #Thrombocytosis platelet increased from 300--> 550 but now improving (down to 482 on 10/25) -Resolved #HTN - no home meds, but will elevations during the stay -Started on Amlodipine 5mg po daily - Tolerating well, within goal range #UTI UCx on 10/18 grew Pseudomonas Cefepime 2000 mg IV x 2 days, followed by vancomycin 1000 mg IV q12h x 3 days Clinically, patient still endorses mild burning with urination (which is improving) -Continue cefadroxil 500 mg p.o. BID per clinical course as noted above in lumbar cellulitis #BPH- Continue Flomax Peer to peer denied for [facility] inpatient rehab on 10/25 Denial reason: Patient has been doing well with PT/OT in hospital (approximately 125 - 200 feet of ambulation daily x 3); does not require intensive 3h per day therapy Disposition: continued inpatient stay, awaiting safe discharge dispo DVT PPx: SCDs, cleared by ortho for chemical DVT PPx; continue Lovenox 40 mg SQ QAM Admission and Anticipated Discharge Date Admission Date: October 03, 2024 Subjective Doing well this morning, eating well, ambulating with PT and OT. No new complaints or concerns. No events per nursing. We have discussed the previous decline from [facility]. Peer to peer denied based on inability to maintain suff icient daily therapy requirements. [facility] evaluation/intake pending. Review of Systems Review of Systems: No fever or chills, changes in sleep or bowel habits. No difficulty breathing. No weakness, no new complaints or erections Physical Exam Constitutional: Alert and oriented no apparent distress, open and conversive Eyes: Sclera clear anicteric Respiratory: clear to auscultation Cardiovascular: Regular rate rhythm, no murmurs noted Musculoskeletal: Spontaneous and symmetric movement, normal strength Skin: No rash or discoloration, dressing and prior cellulitis site clear, dry and intact Results & Data Results & Data Vital Signs (Past 12 Hours) Vital Signs Temp Pulse Resp BP Pulse Ox O2 Del Method 10/26/24 07:31 Room Air 10/26/24 07:15 36.6 C 80 16 124/82 94 Room Air 10/26/24 00:09 36.6 C 83 16 151/85 H 98 Room Air PG Care Time/CCT Total # of Minutes Spent Total Time Spent with Patient: Total time spent is greater than 50% in coordination of care (as documented) at patient's floor/unit and/or counseling patient: Coding Level of Care Code 91711 SUB INP/OBS CARE 03/07MIN Diagnoses Postoperative CSF leak G97.82; G96.00 S/P lumbar discectomy Z98.890 Lumbar stenosis without neurogenic claudication M48.061 Stroke-like symptom R29.90 UTI (urinary tract infection) N39.0
[2024-10-26] MEDS: ONDANSETRON INJ 2 MG/ML 2 ML VIAL IV PRN (13:12)
[2024-10-26 22:55] VITALS: RESP 18
[2024-10-27 07:28] VITALS: BP 113/74; TEMP 97.3; O2SAT 97
[2024-10-27 10:33] VITALS: PULSE 89
--- NOTE | 2024-10-27 10:46 | Discharge Summary ---
Discharge Summary Date of Service October 27, 2024 Principal Dx & Hospital Course #1 = Principal Diagnosis (1) Postoperative CSF leak: (2) S/P lumbar discectomy: (3) Lumbar stenosis without neurogenic claudication: (4) Stroke-like symptom: (5) UTI (urinary tract infection): Plan This patient is a 78-year-old male who presented on 10/03 after sustaining a fall. #Falls | Right leg weakness | Right sided sciatica - Initial CT lumbar showed large inferiorly extruded disc fragment eccentric to the right at L3-L4 which impinges on the transiting right-sided nerve roots. MRI showed degenerative changes of the lumbar spine with small extruded focus of disc material at L3-L4 contacting the descending L5 nerve root. -s/p right L3-L4 discectomy 10/05/[address] Walton, s/p dural tear repair on 10/11 -Pain control: tylenol, prn xanflex. AVOID oxycodone. -Ortho consulted and followed - daily dry dressing changes, continue abx as below, rehab and follow up in office next week. No further plans for OR at this time. -Authorization and placement Count includes the [facility] obtrained 10/27, DC packet completed -[facility] PT and OT, closely observed abx therapy. #Lumbar cellulitis, post-surgical infection Patient with increasing drainage from wound concerning for infection. Initially started on vancomycin and transitioned to cefepime. ID consulted - rec "If no concerns for deep seeded spine infection per ortho, continued clinical improvement of cellulitis and remains HDS, no bacteremia, then can switch to 10 days" of oral antibiotics. Confirmed with ortho 10/23 no concerns for deep seeded infection. -Doxycycline and cefadroxil BID day 4 of 9 (10/23- 10/31/24) -Rx for ongoing scripts given #HTN - no home meds, but will elevations during the stay -Started on Amlodipine 5mg po daily -Tolerating well, within goal range -Rx given to continue, titrate as outpaitient through PCP #Mood disorder | Delirum - Has kaci somnolence on remeron - Per nursing his sleep cycle seem to be improving since being on a structured regimen here - Consider SSRI/SNRI if needed. #Strokelike symptoms | ?TIA vs. CVA - Occurred at approximately 0730AM 10/09. Not a thrombolytic candidate due to recent spinal surgery. Head CT and repeat Head CT without acute findings (MRI contraindicated 2/2 metallic foreign body). Given this finding, telestroke (Dr. Bryan Koenig) did recommended full dose of aspirin 324mg. CTA found 60-70% stenosis of proximal right ICA Initiate atorvastatin 40 mg QAM A1c WNL at 5.5, lipid panel WNL Daily ASA resumed with no plans for OR #Adverse drug reaction related to oxycodone, which was given in the morning prior to stroke alert. Granddaughter says this leads to auditory and visual hallucinations. -oxycodone has been discontinued, avoid moving forward #Thrombocytosis platelet increased from 300--> 550 but now improving (down to 482 on 10/25) -Resolved #UTI UCx on 10/18 grew Pseudomonas Cefepime 2000 mg IV x 2 days, followed by vancomycin 1000 mg IV q12h x 3 days Clinically, patient still endorses mild burning with urination (which is improving) -Continue cefadroxil 500 mg p.o. BID per clinical course as noted above in lumbar cellulitis #BPH- Continue Flomax Notes For Next Care Provider Continue antibiotics through 10/31, he was started on amlodipine for elevated blood pressures. Please recheck renal function and titrate/monitor on discharge Medication Changes From Visit Discharged with amlodipine which was a medication for hypertension and cefadroxil and doxycycline initiated for lumbar cellulitis to be continued through 11/01/2019 Admission HPI Per Admitting Provider 78 yo M with PMH of GERD, BPH. He presents today after sustaining two falls today. He stated that he felt aching pain down his right leg and his leg would give out. This happened back to back. He denied palpitations, dizziness prior to episode. He denied loss of consciousness or head trauma. He denied bowel / bladder incontinence. He denied any numbness / tingling in the groin. He continues to have aching pain in the right leg. Discharge Exam Constitutional Alert and oriented no apparent distress just finishing laps with a walker around the unit with therapy staff Eyes Pupils equal round reactive sclera clear Respiratory Clear to auscultation Cardiovascular Regular rate and rhythm no murmurs rubs or gallops Gastrointestinal (Abdomen) Normal bowel sounds nondistended Musculoskeletal No edema, full and active range of motion in all extremities Skin No rash, pallor or discoloration, lumbar spine dressing clear dry and intact no erythema Updated Medication List Medication Instructions Recorded Confirmed Type multivitamin 1 tab PO QAM 05/20/23 10/03/24 History pantoprazole 40 mg tablet,delayed 40 mg PO QAM 05/20/23 10/03/24 History release vit C 250 mg-vit E 90 mg-zinc 40 1 tab PO BID 05/20/23 10/03/24 History mg-copper 1 [id number] capsule (PreserVision AREDS-2) acetaminophen 325 mg tablet 650 mg (2 x 325 mg) PO Q4H PRN 10/21/24 Rx pain #40 tabs sennosides 8.6 mg-docusate sodium 2 tab PO HS #20 tabs 10/21/24 Rx 50 mg tablet (Senokot-S) tizanidine 4 mg tablet 4 mg PO Q8H PRN muscle spasticity 10/21/24 Rx #30 tabs amlodipine 5 mg tablet 5 mg PO QAM #30 tabs 10/27/24 Rx cefadroxil 500 mg capsule 500 mg PO BID 5 days #10 caps 10/27/24 Rx doxycycline hyclate 100 mg capsule 100 mg PO BID 5 days #10 caps 10/27/24 Rx Hospital Stay Data Consultations 10/03/24 17:57 ED Decision to Admit Stat 10/03/24 18:40 Consult Orthopedic Surgery Stat 10/04/24 16:13 Consult Anesthesiology Routine 10/21/24 08:25 Consult Infectious Diseases Routine Procedures Performed Operation Date: 10/11/24 07:15 Actual Procedures p L3-4 Dural tear repair. - Luis Alfredo Walton MD Diagnostic Imagining Performed 10/03/24 10:54 CT lumbar spine wo con Stat 10/03/24 17:32 MRI Lumbar Spine [MR lumbar spine wo con] Stat 10/05/24 FL spine 1V any level Routine 10/09/24 07:39 CT head/brain wo con Stat CTA head w con [CT angio head w con] Stat CTA neck with con [CT angio neck with con] Stat 10/09/24 08:33 Carotid duplex [US carotid doppler BI] Stat 10/10/24 08:[address] [CT head/brain wo con] Routine Pending Results Patient Have Any Pending Studies at Discharge: No Discharge Instructions Given to Patient (Per Discharging Provider) Continue antibiotics for the full prescribed course. Currently scheduled to end on 10/31 Wound care per long-term facility and orthopedics recommendations, currently dry dressing changes daily Follow up with orthopedics as scheduled Physical Therapy and Occupational Therapy will update your activity restrictions as you recover. Total Time Total Time Spent Total Time Spent (In Minutes): 25
--- NOTE | 2024-10-27 11:17 | Orthopedic Progress Note ---
Date of Service October 27, 2024 Assessment & Plan (1) Wound dehiscence: (2) S/P lumbar discectomy: Continue Current Treatment * Continue daily dry dressing changes * Con't abx per ID * Weight bearing status: As tolerated * Daily treatment: Physical Therapy/ Occupational Therapy per protocol * Pain control * DVT prophylaxis per primary team * Disposition: rehab -- [facility] pending auth * Continues to be no plan for return to OR at this time. (3) Postoperative CSF leak: Plan Continue Current Treatment * Continue daily dry dressing changes * Con't abx per ID * Weight bearing status: As tolerated * Daily treatment: Physical Therapy/ Occupational Therapy per protocol * Pain control * DVT prophylaxis per primary team * Disposition: rehab -- [facility] * Continues to be no plan for return to OR at this time. Subjective . Active Problems: S/p disectomy 10/05 and dural repair 10/11 POD 16 78 y/o male s/p disectomy and dural repair ith Dr. Walton. Doing well overall, pain managed and improved function. Denies fever/chills, chest pain/SOB, nausea/vomiting. Otherwise no complaints. Review of Systems All systems reviewed & are unremarkable except as noted in HPI & below. Physical Exam * General: Alert and oriented, no acute distress * Constitutional: well-developed, well-nourished. * Respiratory: Normal respiratory effort, no distress * Gastrointestinal: No tenderness to palpation, no rigidity or guarding. * Skin: No rash or lesion. * Neurologic: Grossly normal * Musculoskeletal: Surgical dressing CDI. Wound with dehiscence inferior 2/3 of incision without erythema or active drainage. Lumbar spine region without obvious deformity or overlying skin changes. Minimal tenderness of surgical region, otherwise no tenderness b/l buttock or LE. Lumbar flexion/extension and rotation ROM with minimal pain. AROM b/l hip flexion, knee flexion/extension, ankle flexion/extension intact. Sensation intact plantar/dorsal foot. Brisk capillary refill. . Results & Data Results & Data Laboratory Results . Diagnostic Findings . PG Care Time/CCT Total # of Minutes Spent Total Time Spent with Patient: Total time spent is greater than 50% in coordination of care (as documented) at patient's floor/unit and/or counseling patient: Coding Level of Care Code 62526 Post Operative Follow-Up Diagnoses Wound dehiscence T81.30XA S/P lumbar discectomy Z98.890 Postoperative CSF leak G97.82; G96.00
== END 2024-10-27 11:49 | DRG 519 ==
LOC: ED 09:42 → SUATTDRO 18:37 → 2W 18:37 → 2S 10-09 13:47 → 3N 10-23 18:05